=== PATIENT | female | born 1970 | race Caucasian/White ===

== ENCOUNTER → 2017-12-11 07:53 | Outpatient (CLI) | payer OTHER, SELFPAY ==
--- NOTE | 2017-12-11 | DI.MG.S_ITS ---
BILATERAL DIGITAL SCREENING MAMMOGRAM 3D/2D WITH CAD: 12/11/2017 CLINICAL: Routine screening. Family history of breast cancer. Comparison is made to exams dated: 11/16/2016 mammogram and 03/07/2012 mammogram - [facility]. There are scattered fibroglandular elements in both breasts. Current study was also evaluated with a Computer Aided Detection (CAD) system. No significant masses, calcifications, or other findings are seen in either breast. There has been no significant interval change. IMPRESSION: NEGATIVE There is no mammographic evidence of malignancy. A 1 year screening mammogram is recommended. This exam was interpreted at Station ID: [id number]. NOTE: For mammograms, a report in lay terms will be sent to the patient. Approximately 15% of breast malignancies will not be visualized mammographically. In the management of a palpable breast mass, a negative mammogram must not discourage biopsy of a clinically suspicious lesion. Electronically Signed By: Uriah mcfarlane/mathieu:12/11/2017 11:34:13 letter sent: Normal Exam ACR BI-RADS Category 1: Negative 3341F
== END ==
PROVIDERS: Family Provider Family Medicine; PCP Family Medicine; Visit Provider Family Medicine
DX: Z12.31 Encounter for screening mammogram for malignant neoplasm of breast (principal); Z80.3 Family history of malignant neoplasm of breast
CPT/HCPCS: 77063; 77067

== ENCOUNTER → 2018-01-21 16:00 | Outpatient (CLI) | payer OTHER, SELFPAY ==
[2018-01-21 16:38] LABS: Add Manual Diff / Slide Review NO; Basophils Percent Auto 0.6 % (0-2); Eosinophils Percent Auto 2.3 % (2-4); Hematocrit 41.3 % (36-46); Hemoglobin 13.8 g/dL (12.0-16.0); Lymphocytes Percent Auto 23.9 % (25-40); Mean Corpuscular HGB Conc 33.3 % (30-36); Mean Corpuscular Hemoglobin 30.6 PG (26-34); Mean Corpuscular Volume 91.9 fL (80-100); Monocytes Percent Auto 9.4 % (3-14); Neutrophils Absolute Auto 4800 /uL (3000-5900); Neutrophils Percent Auto 63.8 % (50-75); Platelet Count 295 X10^3/uL (150-400); Red Cell Distribution Width 14.3 % (11.6-14.8); White Blood Cell Count 7.5 X10^3/uL (4.5-11.0)
[2018-01-21 17:15] LABS: Alanine Aminotransferase 24 IU/L (9-52); Albumin 3.8 g/dL (3.5-5.0); Albumin Globulin Ratio 1.6 (1.0-2.8); Alkaline Phosphatase 57 U/L (38-126); Aspartate Aminotransferase 24 IU/L (14-36); BUN Creatinine Ratio 15.7 (6-22); Bilirubin Total 0.9 mg/dL (0.2-1.3); Blood Urea Nitrogen 11 mg/dL (7-17); Calcium 8.9 mg/dL (8.4-10.2); Carbon Dioxide 25 mmol/L (22-32); Chloride 101 mmol/L (98-107); Cholesterol 159 mg/dL (140-199); Estimated Glomerular Filt Rate > 60.0 mL/min (>60); Globulin 2.4 g/dL (1.7-4.1); Glucose 79 mg/dL (70-100); HDL Cholesterol 60 mg/dL (40-60); HEMOLYSIS < 15 (0-50); LDL Cholesterol Calculated 91 mg/dL (<100); Potassium 4.2 mmol/L (3.4-5.1); Sodium 136 mmol/L (137-145); Total Protein 6.2 g/dL (6.3-8.2); Triglycerides 38 mg/dL (35-150)
[2018-01-21 17:46] LABS: Thyroid Stimulating Hormone 2.46 uIU/mL (0.47-4.68)
== END ==
PROVIDERS: Family Provider Family Medicine; PCP Family Medicine; Visit Provider Family Medicine
DX: Z13.220 Encounter for screening for lipoid disorders (principal); R63.4 Abnormal weight loss; F41.8 Other specified anxiety disorders; Q21.1 Atrial septal defect; D58.9 Hereditary hemolytic anemia, unspecified
CPT/HCPCS: 36415; 80053; 80061; 84443; 85025

== ENCOUNTER → 2018-06-12 09:46 | Outpatient (REF) | payer SELFPAY ==
[2018-06-12 11:06] LABS: Influenza A and B by PCR Rapid Negative (Negative)
== END ==
LOC: LAB 09:46
PROVIDERS: Family Provider Family Medicine; PCP Family Medicine; Visit Provider Nurse Practitioner Family
DX: R50.9 Fever, unspecified (principal); R52 Pain, unspecified
CPT/HCPCS: 87400

== ENCOUNTER → 2018-09-13 08:09 | Outpatient (CLI) | payer OTHER, SELFPAY ==
[2018-09-13 09:24] LABS: Add Manual Diff / Slide Review NO; Basophils Absolute Auto 0 /uL (0-100); Basophils Percent Auto 0.5 % (0-2); Eosinophils Absolute Auto 100 /uL (0-450); Hematocrit 45.7 % (36-46); Hemoglobin 15.5 g/dL (12.0-16.0); Lymphocytes Absolute Auto 1100 /uL (1100-4500); Lymphocytes Percent Auto 20.2 % (25-40); Mean Corpuscular HGB Conc 33.9 % (30-36); Mean Corpuscular Hemoglobin 30.4 PG (26-34); Mean Corpuscular Volume 89.9 fL (80-100); Monocytes Absolute Auto 500 /uL (0-900); Monocytes Percent Auto 9.5 % (3-14); Neutrophils Absolute Auto 3600 /uL (1500-7000); Neutrophils Percent Auto 67.8 % (50-75); Platelet Count 307 X10^3/uL (150-400); Red Blood Cell Count 5.09 X10^6/uL (4.0-5.2); Red Cell Distribution Width 14.1 % (11.6-14.8); White Blood Cell Count 5.3 X10^3/uL (4.5-11.0)
[2018-09-13 09:55] LABS: Alanine Aminotransferase 22 IU/L (9-52); Albumin 3.8 g/dL (3.5-5.0); Albumin Globulin Ratio 1.6 (1.0-2.8); Alkaline Phosphatase 66 U/L (38-126); Aspartate Aminotransferase 19 IU/L (14-36); Bilirubin Total 0.4 mg/dL (0.2-1.3); Blood Urea Nitrogen 16 mg/dL (7-17); Calcium 8.9 mg/dL (8.4-10.2); Carbon Dioxide 24 mmol/L (22-32); Chloride 106 mmol/L (98-107); Cholesterol 165 mg/dL (140-199); Estimated Glomerular Filt Rate > 60.0 mL/min (>60); Globulin 2.4 g/dL (1.7-4.1); Glucose 98 mg/dL (70-100); HDL Cholesterol 48 mg/dL (40-60); HEMOLYSIS < 15 (0-50); LDL Cholesterol Calculated 108 mg/dL (<100); Potassium 4.6 mmol/L (3.4-5.1); Sodium 138 mmol/L (137-145); Total Protein 6.2 g/dL (6.3-8.2); Triglycerides 46 mg/dL (35-150)
[2018-09-13 09:56] LABS: C-Reactive Protein Quant < 0.5 mg/dL (<1.0)
[2018-09-13 10:19] LABS: Thyroid Stimulating Hormone 1.49 uIU/mL (0.47-4.68)
[2018-09-13 10:20] LABS: Luteinizing Hormone 4.97 mIU/mL
== END ==
PROVIDERS: PCP Family Medicine; Visit Provider Family Medicine
DX: R61 Generalized hyperhidrosis (principal); Z00.00 Encounter for general adult medical examination without abnormal findings
CPT/HCPCS: 36415; 80053; 80061; 83001; 83002; 84443; 85025; 86140

== ENCOUNTER 2019-05-20 07:12 | Emergency (ER) | payer OTHER, SELFPAY ==
[2019-05-20 07:20] VITALS: BP 117/81; PULSE 109; RESP 16; TEMP 36.8; O2SAT 94; BMI 26.6
--- NOTE | 2019-05-20 07:21 | ED.SEIZURE ---
HPI - Seizure General Chief Complaint: Seizure Stated Complaint: SZ Time Seen by Provider: 05/20/19 07:14 Source: patient, family and EMS Mode of arrival: EMS Limitations: no limitations History of Present Illness HPI Narrative: This is a 48-year-old female who comes emergency department with seizure activity. Patient has history of seizure disorder and states typically there partial complex seizures. She states that usually she feel that hot across her chest, she does not have any staring episodes, movement of extremities or typically have movement changes. She can continue with conversations and does not have any change in mental status according to her and her . She states they typically awaken her from sleep, she will have several in a row and then go several months without issues. Her states he hasn't witnessed many of them because they typically seem to happen at night time but he states today was very different. This morning he woke up to her shaking in the bed with whole body tonic-clonic type shaking. He states it probably lasted 30-45 seconds. She did appear postictal and she has been returning to baseline but he states it's been over the course of about 45 minutes. Patient does normally take lamotrigine. She has not had any changes in her dosage. She states Dr. Lozoya her primary care prescribed this medication. She did see Neurology a Dr. Jimenez in [place] but states that was several years ago at [facility]. She also takes citalopram and Xanax for anxiety and depression. She states that Xanax is occasional. She has had a cholecystectomy an ASD repair 20 years ago. Denies any allergies to medications. States she normally has 2 or 3 alcoholic drinks about 2 or 3 times weekly. Last night she did have about 8 drinks that were vodka between noon and midnight which is more than her typical. She denies any illicit, no marijuana or street drugs. She denies recent trauma. No fevers. No other alterations in mental status. Related Data Allergies Allergy/AdvReac Type Severity Reaction Status Date / Time INGREDIENT: NDA - NO KNOWN Allergy Unknown Uncoded 08/28/17 12:54 DRUG ALLERGIES Cefotaxime AdvReac Unknown Uncoded 08/28/17 12:54 Review of Systems Review of Systems ROS Unobtainable: All systems reviewed & are unremarkable except as noted in HPI and below Patient History Medical History (Updated 05/20/19 @ 07:44 by Blaire Hill DO) Anxiety (Acute) Depression (Acute) Seizure disorder (Acute) Surgical History (Updated 05/20/19 @ 07:40 by Blaire Hill DO) H/O congenital atrial septal defect (ASD) repair (Acute) Hx of cholecystectomy (Acute) Social History (Updated 05/20/19 @ 07:41 by Blaire Hill DO) marital status: Smoking Status: Never smoker Smoking Status: Never smoker alcohol intake frequency: a few times a week (2-3 drinks at a time) Substance Use Type: does not use Exam Narrative Exam Narrative: GEN: well nourished, well appearing female, alert and oriented x 3, patient appears to be in mild distress. HEENT: Atraumatic, pupils are equal round reactive to light, extraocular movements are intact, no nystagmus, nares are clear, TMs are clear with no fluid, there is no conjunctival pallor. Throat is clear without any exudates, erythema, tonsillar enlargement or uvular deviation, facial droop. Normal speech. Patient has a small superficial abrasion/lack on her right lateral tongue it is not deep. HEART: Regular rate and rhythm without murmur, clicks, rubs. LUNGS:Lungs clear to auscultation, no wheezes, rales, crackles, chest moves symmetrically ABD:bowel sounds normal, soft, non-tender, no guarding, rebound, rigidity, no masses noted, no hepatosplenomegaly :No CVA tenderness MSCL: Non-tender, no muscle atrophy, muscles strength 5/5 upper and lower extremities, full range of motion, normal gait NEURO:CN 2-12 intact, sensation normal, reflexes patient slightly hyperreflexic on bilateral lower extremities. finger nose finger test normal, heel rubio test normal, gait not tested. GCS 15. SKIN: No rash, no erythema. No skin changes. Initial Vital Signs Initial Vital Signs: Vital Signs Temperature 98.3 F 05/20/19 07:20 Pulse Rate 109 H 05/20/19 07:20 Respiratory Rate 16 05/20/19 07:20 Blood Pressure 117/81 05/20/19 07:20 Pulse Oximetry 94 05/20/19 07:20 Scores GCS Nivia coma scale eye opening: Spontaneous [place] coma scale verbal response: Orientated Nivia coma scale motor response: Obey commands Nivia coma scale total score: 15 Course Orders Ordered: ED Orders 05/20/19 07:15 BMP [Basic Metabolic Panel] Stat Complete Blood Count AUTO DIFF Stat Ethanol (ETOH) Stat Lamotrigine Lamictal Stat Magnesium Stat 05/20/19 07:23 EKG-12 Lead Routine 05/20/19 07:36 CT head/brain wo con Stat 05/20/19 09:51 Urine Drug Screen, Rapid Stat Discontinued Medications Sodium Chloride (Normal Saline 0.9%) 1,000 mls @ 1,000 mls/hr IV BOLUS ONE Stop: 05/20/19 08:34 Last Infusion: 05/20/19 10:09 Dose: 0 mls/hr Documented by: Admin: 05/20/19 07:41 Dose: 1,000 mls/hr Documented by: VASQUEZ Lamotrigine (Lamictal) 150 mg PO NOW ONE Stop: 05/20/19 10:35 Last Admin: 05/20/19 10:43 Dose: 150 mg Documented by: VASQUEZ Lorazepam (Ativan) 1 mg IV NOW ONE Stop: 05/20/19 07:36 Last Admin: 05/20/19 07:40 Dose: 1 mg Documented by: VASQUEZ Lorazepam (Ativan) 0.5 mg IV NOW ONE Stop: 05/20/19 08:25 Last Admin: 05/20/19 08:26 Dose: 0.5 mg Documented by: VASQUEZ Vital Signs Vital signs: Vital Signs - 8 hr 05/20/19 07:20 05/20/19 08:50 05/20/19 09:30 Temperature 98.3 F Pulse Rate 109 H 93 H 91 H Respiratory Rate 16 18 17 Blood Pressure 117/81 Blood Pressure [Right Arm] 114/70 115/78 Pulse Oximetry 94 96 97 05/20/19 10:57 Temperature Pulse Rate 100 H Respiratory Rate 17 Blood Pressure 118/77 Blood Pressure [Right Arm] Pulse Oximetry 97 MDM - Seizure Lab Data Attestation: I reviewed the patient's lab results. Result diagrams: 05/20/19 07:15 05/20/19 07:15 Labs: Lab Results 05/20/19 05/20/19 05/20/19 Range/Units 07:15 07:15 07:15 WBC 9.7 (4.5-11.0) X10^3/uL RBC 5.08 (4.0-5.2) X10^6/uL Hgb 15.6 (12.0-16.0) g/dL Hct 46.9 H (36-46) % MCV 92.3 (80-100) fL MCH 30.7 (26-34) PG MCHC 33.2 (30-36) % RDW 14.3 (11.6-14.8) % Plt Count 363 (150-400) X10^3/uL Neut % (Auto) 71.2 (50-75) % Lymph % (Auto) 21.1 L (25-40) % Williams % (Auto) 6.1 (3-14) % Eos % (Auto) 0.9 L (2-4) % Baso % (Auto) 0.7 (0-2) % Neut # (Auto) 6900 (3253-9360) /uL Lymph # (Auto) 2000 (6631-4375) /uL Williams # (Auto) 600 (0-900) /uL Eos # (Auto) 100 (0-450) /uL Baso # (Auto) 100 (0-100) /uL Sodium 138 (137-145) mmol/L Potassium 4.5 (3.4-5.1) mmol/L Chloride 105 (98-107) mmol/L Carbon Dioxide 17 L (22-32) mmol/L BUN 19 H (7-17) mg/dL Creatinine 0.80 (0.52-1.04) mg/dL Estimated GFR > 60.0 (>60) mL/min BUN/Creatinine Ratio 23.8 H (6-22) Glucose 139 H (70-100) mg/dL Calcium 8.4 (8.4-10.2) mg/dL Magnesium 2.1 (1.6-2.3) mg/dL U Opiates 300ng/mL cut (Negative) Ur Oxycodone Screen (Negative) Urine Methadone Screen (Negative) Ur Barbiturates Screen (Negative) U Tricyclic Antidepress (Negative) Ur Phencyclidine Scrn (Negative) Ur Amphetamines Screen (Negative) U Methamphetamines Scrn (Negative) Ur MDMA Scrn (Ecstasy) (Negative) U Benzodiazepines Scrn (Negative) Urine Cocaine Screen (Negative) U Marijuana (THC) Screen (Negative) Ethyl Alcohol ( - 10) mg/dL 05/20/19 05/20/19 Range/Units 07:15 09:51 WBC (4.5-11.0) X10^3/uL RBC (4.0-5.2) X10^6/uL Hgb (12.0-16.0) g/dL Hct (36-46) % MCV (80-100) fL MCH (26-34) PG MCHC (30-36) % RDW (11.6-14.8) % Plt Count (150-400) X10^3/uL Neut % (Auto) (50-75) % Lymph % (Auto) (25-40) % Williams % (Auto) (3-14) % Eos % (Auto) (2-4) % Baso % (Auto) (0-2) % Neut # (Auto) (1284-1761) /uL Lymph # (Auto) (7593-3190) /uL Williams # (Auto) (0-900) /uL Eos # (Auto) (0-450) /uL Baso # (Auto) (0-100) /uL Sodium (137-145) mmol/L Potassium (3.4-5.1) mmol/L Chloride (98-107) mmol/L Carbon Dioxide (22-32) mmol/L BUN (7-17) mg/dL Creatinine (0.52-1.04) mg/dL Estimated GFR (>60) mL/min BUN/Creatinine Ratio (6-22) Glucose (70-100) mg/dL Calcium (8.4-10.2) mg/dL Magnesium (1.6-2.3) mg/dL U Opiates 300ng/mL cut Negative (Negative) Ur Oxycodone Screen Negative (Negative) Urine Methadone Screen Negative (Negative) Ur Barbiturates Screen Negative (Negative) U Tricyclic Antidepress Negative (Negative) Ur Phencyclidine Scrn Negative (Negative) Ur Amphetamines Screen Negative (Negative) U Methamphetamines Scrn Negative (Negative) Ur MDMA Scrn (Ecstasy) Negative (Negative) U Benzodiazepines Scrn Negative (Negative) Urine Cocaine Screen Negative (Negative) U Marijuana (THC) Screen Negative (Negative) Ethyl Alcohol < 10 ( - 10) mg/dL Point of Care Testing Test Results Negative Glucose POC 122 Urine Dip Bedside Urine Glucose Negative Bedside Urine Bilirubin - Negative Bedside Urine Ketone +/- 5 Urine Specific [place] 1.015 Bedside Urine Occult Blood - Negative Bedside Urine pH 6.0 Bedside Urine Protein +/- 15 Bedside Urine Urobilinogen +/- 1mg Bedside Urine Nitrite - Negative Bedside Urine Leukocytes - Negative Esterase Imaging Data CT scan - head: Radiologist's Impression: [address] [address] [address] Scan Report Signed Patient: Dione Grimm LMR#: [id number] : 1970Acct:[id number] Age/Sex: 48 / FDate of Service: 05/20/19 Loc: ED Accession Number: [id number] Procedure: CT head/brain wo con Ordering Provider: Blaire Hill D.O. PROCEDURE: CT HEAD/BRAIN WO CON INDICATIONS: seizure, change from typical TECHNIQUE: Noncontrast 4.5 mm thick angled axial sections acquired from the foramen magnum to the vertex, with coronal and sagittal reformats. For radiation dose reduction, the following was used: automated exposure control, adjustment of mA and/or kV according to patient size. COMPARISON: None. FINDINGS: Image quality: Excellent. CSF spaces: Basal cisterns are patent. No extra-axial fluid collections. Ventricles are normal in size and shape. Brain: No midline shift. No intracranial masses or hemorrhage. Daily-white matter interface is normal. Mid/posterior frontal falx calcification. Skull and face: Calvarium and visualized facial bones are intact, without suspicious lesions. Sinuses: Visualized sinuses and mastoids are clear. IMPRESSION: No acute intracranial abnormality demonstrated. Dictated by: Ricardo Roy M.D. on 05/20/2019 at 8:17 Approved by: Ricardo Roy M.D. on 05/20/2019 at 8:19 ECG Data Attestation: I personally reviewed and interpreted this ECG as follows: Prior ECG tracings: available for review Interpretation: Sinus tachycardia with a rate of 100 P are 192 QRS of 105 and QTC of 422. No ST elevation is appreciated. Patient has incomplete right bundle branch. Patient has prior from 11/25/2013 which appears similar in ST segments. MDM Narrative Medical decision making narrative: Patient comes in with seizure activity witnessed by her . Patient was postictal on a has improved to baseline per and does appear to be so on exam although maybe still slightly slow to answer. Patient did have a change in her typical type seizure, head CT was ordered secondary to this although I suspect that the main reason she had increased seizure activity and the change day which she had significantly more alcohol than she typically would over about 12 hours yesterday and as this is known to lower seizure threshold I suspect this is the cause of her symptoms. Imaging, labs shows CO of 17, BUN is 19, etoh is negative. Lamotrigine is pending and a send out lab. Patient states she had what they feel is another episode or seizure x 2 in the department. Patient is alert, conversant, her chest feels hot and gets red according to her and family. She has no movement changes or staring episodes, no alteration in mental status. No other changes other than feeling hot in her chest that is a part of the episode when both episodes are witnessed by myself. Attempted to contact Dr. Jimenez her prior neurologist. Spoke with Dr. Robertson who is senior applications developer for the PCP group and he cannot pull up any neurology records but does have records back to 2013 from . Attempted [place] [facility] with no response. I did speak with Dr. Garland for the patient. Patient given her home dose of lamotrigine today. Patient is ambulating and baseline in the department. Plan for close follow up. Lamotrigine level is pending. Patient to continue home medications as to avoid alcohol. She is not cleared to drive by the ER at this time and was relayed to the patient. Dr. Vann did call back later. Recommends f/u, no driving, seizure precautions. Could increase lamictal level to 175mg BID, level is pending for there use. They will follow with patient. I did call patient. Updated her on recommendations. She states she has plenty of Lamictal and does need a prescription. Again discussed neurology's recommendations of no driving. 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 Also discussed neurology options locally including [place] and [place]. Discharge Plan Departure Patient Disposition: Home Clinical Impression: Seizure Discharge Date/Time: 05/20/19 10:57 Instructions: DI for Seizure Disorder -- Adult Activity Restrictions/Additional Instructions: Follow up with your physician in the next 24-48 hours for recheck. I also recommend re-establishing with your neurologist Dr. Jimenez. Avoid alcohol. Alcohol increases your risk of seizures and is well known for lowering the seizure pressure. I do not recommend drinking alcohol with a history of seizure disorder. No driving until you're cleared by your physician. Continue with seizure precautions, no swimming, bathing alone or participating in activities or if you had a seizure it could cause serious harm or . Your lamotrigine level is pending, follow-up with her physician to check this as it is a send out lab. Return to the ER for altered mental status, fevers greater 100.4 F, recurrent seizures particularly if you do not return to baseline in between for if you're having multiple seizures back to back, persistent vomiting, new weakness, numbness or other new or concerning symptoms. Referrals: Rainer Lozoya MD [Primary Care Provider] - Stand Alone Forms: Work Release Note
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
--- NOTE | 2019-05-20 07:36 | DI.CT.S_ITS ---
PROCEDURE: CT HEAD/BRAIN WO CON INDICATIONS: seizure, change from typical TECHNIQUE: Noncontrast 4.5 mm thick angled axial sections acquired from the foramen magnum to the vertex, with coronal and sagittal reformats. For radiation dose reduction, the following was used: automated exposure control, adjustment of mA and/or kV according to patient size. COMPARISON: None. FINDINGS: Image quality: Excellent. CSF spaces: Basal cisterns are patent. No extra-axial fluid collections. Ventricles are normal in size and shape. Brain: No midline shift. No intracranial masses or hemorrhage. Daily-white matter interface is normal. Mid/posterior frontal falx calcification. Skull and face: Calvarium and visualized facial bones are intact, without suspicious lesions. Sinuses: Visualized sinuses and mastoids are clear. IMPRESSION: No acute intracranial abnormality demonstrated. Dictated by: Ricardo Roy M.D. on 05/20/2019 at 8:17 Approved by: Ricardo Roy M.D. on 05/20/2019 at 8:19
[2019-05-20 07:38] LABS: Add Manual Diff / Slide Review NO; Basophils Absolute Auto 100 /uL (0-100); Basophils Percent Auto 0.7 % (0-2); Eosinophils Absolute Auto 100 /uL (0-450); Eosinophils Percent Auto 0.9 % (2-4); Hematocrit 46.9 % (36-46); Hemoglobin 15.6 g/dL (12.0-16.0); Lymphocytes Absolute Auto 2000 /uL (1100-4500); Lymphocytes Percent Auto 21.1 % (25-40); Mean Corpuscular HGB Conc 33.2 % (30-36); Mean Corpuscular Hemoglobin 30.7 PG (26-34); Mean Corpuscular Volume 92.3 fL (80-100); Monocytes Absolute Auto 600 /uL (0-900); Monocytes Percent Auto 6.1 % (3-14); Neutrophils Absolute Auto 6900 /uL (1500-7000); Neutrophils Percent Auto 71.2 % (50-75); Platelet Count 363 X10^3/uL (150-400); Red Blood Cell Count 5.08 X10^6/uL (4.0-5.2); Red Cell Distribution Width 14.3 % (11.6-14.8); White Blood Cell Count 9.7 X10^3/uL (4.5-11.0)
[2019-05-20] MEDS: LORazepam 2 MG/ML INJ 1 MG IV (07:40)
[2019-05-20 07:41] LABS: BUN Creatinine Ratio 23.8 (6-22); Blood Urea Nitrogen 19 mg/dL (7-17); Calcium 8.4 mg/dL (8.4-10.2); Carbon Dioxide 17 mmol/L (22-32); Chloride 105 mmol/L (98-107); Estimated Glomerular Filt Rate > 60.0 mL/min (>60); Glucose 139 mg/dL (70-100); HEMOLYSIS 17 (0-50); Potassium 4.5 mmol/L (3.4-5.1); Sodium 138 mmol/L (137-145)
[2019-05-20] MEDS: SODIUM CHLORIDE 0.9% 1,000 ML 1000 ML IV (07:41)
[2019-05-20 08:00] LABS: Ethanol (ETOH) < 10 mg/dL; Magnesium 2.1 mg/dL (1.6-2.3)
[2019-05-20] MEDS: LORazepam 2 MG/ML INJ 0.5 MG IV (08:26)
--- NOTE | 2019-05-20 08:27 | PC.NURSE ---
Pt's reports that pt thinks she is about to have another seizure. reports usually her chest gets hot and red prior to any activity. Dr Hill made aware. verbal order for 0.5mg ativan. given. IVF infusing. pt AAOx3. Resting supine in bed with seizure pads in place and suction available. will monitor
[2019-05-20 08:50] VITALS: BP 114/70; PULSE 93; RESP 18; O2SAT 96
--- NOTE | 2019-05-20 08:53 | PC.NURSE ---
Checked in on pt. family members in room. pt drowsy. IVF continues to infuse. pt made aware of need of urine sample. i feel fine awake and oriented. will continue to monitor
[2019-05-20 09:30] VITALS: BP 115/78; PULSE 91; RESP 17; O2SAT 97
[2019-05-20 10:09] LABS: UR Morphine/Opiate cutoff 300 Negative (Negative); Ur Creatinine Normal (Normal); Ur Specific Gravity Normal (Normal); Urine Amphetamines Negative (Negative); Urine Barbiturates Negative (Negative); Urine Benzodiazepines Negative (Negative); Urine Cocaine Negative (Negative); Urine MDMA Negative (Negative); Urine Methadone Negative (Negative); Urine Methamphetamines Negative (Negative); Urine Oxycodone Negative (Negative); Urine Phencyclidine Negative (Negative); Urine Tetrahydrocannabinol Negative (Negative); Urine Tricyclic Antidepressant Negative (Negative); Urine pH Normal (Normal)
[2019-05-20] MEDS: lamoTRIgine 100 MG TABLET 150 MG PO (10:43)
[2019-05-20 10:57] VITALS: BP 118/77; PULSE 100; RESP 17; O2SAT 97
[2019-05-22 20:40] LABS: Lamotrigine Lamictal 6.5 mcg/mL (4.0-18.0)
== END 2019-05-20 10:57 | disposition home or self-care (01) ==
PROVIDERS: Emergency Provider Emergency Medicine; PCP Family Medicine
DX: R56.9 Unspecified convulsions (principal); R00.0 Tachycardia, unspecified
CPT/HCPCS: 36415; 70450; 80048; 80175; 80305; 80320; 81003; 81025; 83735; 85025; 93005; 96361; 96374; 96376; 99284; 99285; J2060

== ENCOUNTER → 2020-03-19 08:32 | Outpatient (CLI) | payer BC, SELFPAY ==
--- NOTE | 2020-03-19 | DI.MG.S_ITS ---
BILATERAL DIGITAL SCREENING MAMMOGRAM 3D/2D WITH CAD: 03/19/2020 CLINICAL: Routine screening. Family history of breast cancer. Comparison is made to exams dated: 12/11/2017 mammogram, 11/16/2016 mammogram, and 03/07/2012 mammogram - [facility]. There are scattered fibroglandular elements in both breasts. Current study was also evaluated with a Computer Aided Detection (CAD) system. No significant masses, calcifications, or other findings are seen in either breast. There has been no significant interval change. IMPRESSION: NEGATIVE There is no mammographic evidence of malignancy. A 1 year screening mammogram is recommended. This exam was interpreted at Station ID: [id number]. NOTE: For mammograms, a report in lay terms will be sent to the patient. Approximately 15% of breast malignancies will not be visualized mammographically. In the management of a palpable breast mass, a negative mammogram must not discourage biopsy of a clinically suspicious lesion. Electronically Signed By: Vin cedeño/mathieu:03/21/2020 09:05:10 letter sent: Normal Exam ACR BI-RADS Category 1: Negative 3341F
== END ==
PROVIDERS: PCP Family Medicine; Referring Provider Family Medicine; Visit Provider Family Medicine
DX: Z12.31 Encounter for screening mammogram for malignant neoplasm of breast (principal); Z80.3 Family history of malignant neoplasm of breast
CPT/HCPCS: 77063; 77067

== ENCOUNTER 2020-07-30 11:58 | Emergency (ER) | payer OTHER, SELFPAY ==
[2020-07-30 11:58] VITALS: PULSE 97; RESP 24
[2020-07-30 12:04] VITALS: BP 132/71; PULSE 92; RESP 16; O2SAT 96
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
[2020-07-30] MEDS: SODIUM CHLORIDE 0.9% 1,000 ML 1000 ML IV (12:26)
[2020-07-30] MEDS: ONDANSETRON 4 MG/2 ML INJ IV (12:26)
[2020-07-30 12:33] LABS: BUN Creatinine Ratio 22.2 (6-22); Blood Urea Nitrogen 20 mg/dL (7-17); Calcium 9.4 mg/dL (8.4-10.2); Carbon Dioxide 12 mmol/L (22-32); Chloride 104 mmol/L (98-107); Estimated Glomerular Filt Rate > 60.0 mL/min (>60); Ethanol (ETOH) < 10 mg/dL; Glucose 100 mg/dL (70-100); Magnesium 2.1 mg/dL (1.6-2.3); Potassium 4.4 mmol/L (3.4-5.1); Sodium 138 mmol/L (137-145)
[2020-07-30 12:38] LABS: HEMOLYSIS 122 (0-50)
[2020-07-30 12:48] LABS: Prolactin 104.8 ng/mL (3.0-18.6)
[2020-07-30 12:54] LABS: Add Manual Diff / Slide Review NO; Basophils Absolute Auto 100 /uL (0-100); Basophils Percent Auto 0.5 % (0-2); Eosinophils Absolute Auto 200 /uL (0-450); Hematocrit 50.1 % (36-46); Hemoglobin 15.9 g/dL (12.0-16.0); Lymphocytes Absolute Auto 3400 /uL (1100-4500); Lymphocytes Percent Auto 28.5 % (25-40); Mean Corpuscular HGB Conc 31.8 % (30-36); Mean Corpuscular Hemoglobin 29.7 PG (26-34); Mean Corpuscular Volume 93.4 fL (80-100); Monocytes Absolute Auto 1100 /uL (0-900); Monocytes Percent Auto 8.9 % (3-14); Neutrophils Absolute Auto 7200 /uL (1500-7000); Neutrophils Percent Auto 60.1 % (50-75); Platelet Count 353 X10^3/uL (150-400); Red Blood Cell Count 5.36 X10^6/uL (4.0-5.2); Red Cell Distribution Width 14.1 % (11.6-14.8)
[2020-07-30] MEDS: ACETAMINOPHEN 325 MG TABLET 975 MG PO (13:02)
[2020-07-30 13:58] LABS: UR Morphine/Opiate cutoff 300 Negative (Negative); Ur Creatinine Normal (Normal); Ur Specific Gravity Normal (Normal); Urine Amphetamines Negative (Negative); Urine Barbiturates Negative (Negative); Urine Benzodiazepines Negative (Negative); Urine Cocaine Negative (Negative); Urine MDMA Negative (Negative); Urine Methadone Negative (Negative); Urine Methamphetamines Negative (Negative); Urine Oxycodone Negative (Negative); Urine Phencyclidine Negative (Negative); Urine Tetrahydrocannabinol Negative (Negative); Urine Tricyclic Antidepressant Negative (Negative); Urine pH Normal (Normal)
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
[2020-07-30] MEDS: lamoTRIgine 100 MG TABLET 200 MG PO (14:45)
[2020-07-30] MEDS: TRANEXAMIC ACID 1,000 MG VIAL 1000 MG MM (14:46)
[2020-07-30 16:03] VITALS: BP 125/75; PULSE 65; RESP 18; O2SAT 99
== END 2020-07-30 16:07 | disposition home or self-care (01) ==
PROVIDERS: Emergency Provider Emergency Medicine; PCP Family Medicine
DX: R56.9 Unspecified convulsions (principal)
CPT/HCPCS: 70450; 80048; 80305; 80320; 81003; 81025; 83735; 84146; 85025; 93005; 96361; 96374; 99283; 99284; J2405

== ENCOUNTER → 2020-08-02 16:57 | Outpatient (CLI) | payer OTHER, SELFPAY ==
[2020-08-05 12:44] LABS: Lamotrigine Lamictal 11.2 ug/mL (2.0-20.0)
== END ==
PROVIDERS: PCP Family Medicine; Referring Provider Family Medicine; Visit Provider Family Medicine
DX: G40.209 Localization-related (focal) (partial) symptomatic epilepsy and epileptic syndromes with complex partial seizures, not intractable, without status epilepticus (principal)
CPT/HCPCS: 36415; 80175

== ENCOUNTER → 2020-08-05 09:29 | Outpatient (CLI) | payer OTHER, SELFPAY ==
[2020-08-05 12:09] LABS: COVID19 -Nasal RAPID Negative (Negative)
== END ==
PROVIDERS: PCP Family Medicine; Visit Provider Surgery
DX: Z20.822 Contact with and (suspected) exposure to COVID-19 (principal)
CPT/HCPCS: 87635; C9803

== ENCOUNTER 2020-08-08 08:04 | Day surgery (SDC) | payer OTHER, SELFPAY ==
--- NOTE | 2020-08-08 | PATH_ITS ---
[facility] Accession Number: [id number] . 01 Material submitted: . esophagus, E-G Junction - GE JUNCTION . 02 Diagnosis: GE Junction: Portion of proximal gastric mucosa with chronic inflammation. Negative for intestinal metaplasia. Negative for H. pylori organisms by immunohistochemistry studies. Portion of squamous mucosa with no significant histomorphologic abnormality; negative for intestinal metaplasia by Acian blue stain. Negative for dysplasia or malignancy. . MRV 08/12/2020 1403 Local . 02 Electronically signed: . Sharon Robbins MD, Pathologist NPI- [id number] . 01 Gross description: . GE JUNCTION: Received in formalin are 2 fragment(s) of truong, soft tissue measuring 0.3 x 0.3 x 0.1 cm to 0.3 x 0.1 x 0.1 cm submitted entirely in 1 cassette(s) /QBJ 08/10/2020 0744 Local . 02 Microscopic: . An immunohistochemical stain was performed to evaluate for Helicobacter organisms and is negative. The control stain showed appropriate reactivity. . * This test was developed and its performance characteristics determined by [facility]. It has not been cleared or approved by the U.S. Food and Drug Administration. The FDA has determined that such clearance or approval is not necessary. This test is used for clinical purposes. It should not be regarded as investigational or for research. . 02 Pathologist provided ICD-10: R13.10 . 02 CPT . 124365, L51398, 622474 Performed at: 01 [facility] [address] [facility], [place], [place] [id number] MD Vin Fernandez MD Phone: [phone] Performed at: 02 [facility] [place] [id number] [place] [id number] MD Faith oMlina MD Phone: [phone]
[2020-08-08 08:41] VITALS: BP 118/83; PULSE 70; RESP 16; TEMP 36.9; O2SAT 95; BMI 30.9
[2020-08-08] MEDS: LACTATED RINGERS 1,000 ML 200 ML IV (08:49)
--- NOTE | 2020-08-08 09:18 | PM.PREOP ---
Pre-operative Note Interval Note History & Physical reviewed/Exam performed by Physician: Yes Changes to H&P: No
[2020-08-08] MEDS: LIDOCAINE 4% SOLN 50 ML 20 ML TOP (09:35)
[2020-08-08] MEDS: fentaNYL 250 MCG/5 ML INJ IV (09:40)
--- NOTE | 2020-08-08 09:40 | PM.OP.ENDO ---
Operative Date/Time/Diagnoses Date of procedure: 08/08/20 Time of procedure: 09:40 Pre-op diagnosis: esophageal dysphagia Post-op diagnosis: same Procedure & Clinicians Study performed: Esophagoduodenoscopy Same procedure as scheduled: Yes Indications: 50-year-old female developed esophageal dysphagia here for EGD Surgeon: Loi Willett Procedure Notes Procedure in detail: Patient placed in left lateral decubitus position. Time out was performed. Procedural sedation was administered with Versed and Fentanyl. A bite block was placed. the scope was inserted into the mouth and advanced through the esophagus and into the stomach. The pylorus was intubated and the duodenum was normal to the 2nd portion. The scope was retroflexed within the stomach and there was a small hiatal hernia. No ulcers, or gastritis. The scope was withdrawn into the esophagus the Z line was seen at 40 cm from the incisions. There was no obvious Graff's esophagitis esophageal masses or strictures. Biopsies of the GE junction were performed with the biopsy forceps. Stomach was desufflated and scope removed. Patient tolerated procedure well. Sedation minutes: 8 Specimen(s): other (GE junction) Complications: none Impression: Hiatal hernia Post-procedure Recommendations: Start medication(s) (Omeprazole) Follow up: as needed Disposition: same day surgery
[2020-08-08] MEDS: MIDAZOLAM 5 MG/5 ML VIAL IV (09:41)
[2020-08-08 09:42] VITALS: BP 109/79; PULSE 67; RESP 9; TEMP 36.7; O2SAT 90
[2020-08-08 09:47] VITALS: BP 110/73; PULSE 61; RESP 11; O2SAT 91
[2020-08-08 09:52] VITALS: BP 113/67; PULSE 63; RESP 9; O2SAT 92
[2020-08-08 09:58] VITALS: BP 114/82; PULSE 74; RESP 10; O2SAT 94
[2020-08-08 10:12] VITALS: BP 118/83; PULSE 70; RESP 16; TEMP 36.9; O2SAT 95
== END 2020-08-08 10:15 | disposition home or self-care (01) ==
PROVIDERS: PCP Family Medicine; Referring Provider Surgery; Visit Provider Surgery
PROC: 0DJ08ZZ Inspection of Upper Intestinal Tract, Via Natural or Artificial Opening Endoscopic (ICD-10-PCS; CPT 43235; principal; 2020-08-08 09:15)
DX: K21.00 Gastro-esophageal reflux disease with esophagitis, without bleeding (principal); F41.9 Anxiety disorder, unspecified; F32.9 Major depressive disorder, single episode, unspecified; G40.909 Epilepsy, unspecified, not intractable, without status epilepticus; K44.9 Diaphragmatic hernia without obstruction or gangrene
CPT/HCPCS: 43239; 99152; J2250; J3010

== ENCOUNTER → 2020-09-23 07:50 | Outpatient (CLI) | payer OTHER, SELFPAY ==
[2020-09-26 16:08] LABS: Lamotrigine Lamictal 10.9 ug/mL (2.0-20.0)
== END ==
PROVIDERS: PCP Family Medicine; Referring Provider Family Medicine; Visit Provider Family Medicine
DX: G40.209 Localization-related (focal) (partial) symptomatic epilepsy and epileptic syndromes with complex partial seizures, not intractable, without status epilepticus (principal)
CPT/HCPCS: 36415; 80175

== ENCOUNTER 2020-11-03 12:06 | Emergency (ER) | payer OTHER, SELFPAY ==
[2020-11-03 12:20] VITALS: BP 138/81; PULSE 68; RESP 15; TEMP 37.3; O2SAT 97; BMI 31.8
--- NOTE | 2020-11-03 12:36 | DI.CT.S_ITS ---
PROCEDURE: CT HEAD/BRAIN WO CON INDICATIONS: worst LÓPEZ of life TECHNIQUE: Noncontrast 4.5 mm thick angled axial sections acquired from the foramen magnum to the vertex, with coronal and sagittal reformats. For radiation dose reduction, the following was used: automated exposure control, adjustment of mA and/or kV according to patient size. COMPARISON: [facility], MR, BRAIN WITH AND WITHOUT CONTRAS, 05/29/2011, 10:00. [facility], CT, CT HEAD/BRAIN WO CON, 05/20/2019, 7:36. [facility], CT, CT HEAD/BRAIN WO CON, 07/30/2020, 12:26. FINDINGS: Image quality: Excellent. CSF spaces: Basal cisterns are patent. No extra-axial fluid collections. Ventricles are normal in size and shape. Brain: No midline shift. No intracranial masses or hemorrhage. Daily-white matter interface is normal. Focal thickening of the anterior dura can be seen, as on series 2, image 22, which is stable compared to 2020. Skull and face: Calvarium and visualized facial bones are intact, without suspicious lesions. Sinuses: Visualized sinuses and mastoids are clear. IMPRESSION: No acute intracranial hemorrhage is seen. No acute intracranial process is seen. Dictated by: Stanley Figueroa M.D. on 11/03/2020 at 11:59 Approved by: Stanley Figueroa M.D. on 11/03/2020 at 12:02
[2020-11-03] MEDS: ACETAMINOPHEN 325 MG TABLET 650 MG PO (12:39)
--- NOTE | 2020-11-03 14:09 | ED_ITS ---
HPI - Headache General Chief Complaint: Headache Stated Complaint: Headache Time Seen by Provider: 11/03/20 12:35 Mode of arrival: Wheelchair Limitations: no limitations History of Present Illness HPI Narrative: 50-year-old woman with a history of seizure disorder for which she is on lamotrigine, reflux and depression presents with severe headache. She states her symptoms started 48 hours ago after an emotional compensation that led to a very hard crying episode. As she was crying she developed severe frontal headache that continued for a number of hours. She described it is throbbing and at times extending down both temples toward her jaw. She does not have a significant history of headache. She does not describe fevers she has no nuchal rigidity complaints and no low back complaints. The headache seems to be worse if she bends over forward but she isn't having specific sinus pressure complaints. No sore throat. No cough. No chest pain, orthopnea, palpitations, dyspnea, abdominal pain, vomiting, diarrhea, dysuria. The headache is bilateral and not associated with any skin changes. She had a IM dose of Toradol in the clinic yesterday that was helpful for a bit. She took a an oral dose of Toradol this morning that was not particularly helpful and presents today with continued concerns. She describes no vision changes and no other neurologic complaints. Related Data Home Medications Medication Instructions Recorded Confirmed alprazolam 1 mg tablet 1 mg PO DAILY PRN 03/17/20 08/08/20 lamotrigine 200 mg tablet 200 mg PO BID 03/17/20 08/08/20 citalopram 40 mg PO DAILY 07/30/20 08/08/20 Previous Rx's Medication Instructions Recorded omeprazole 20 mg PO DAILY #60 cap 08/08/20 Allergies Allergy/AdvReac Type Severity Reaction Status Date / Time Cephalosporins Allergy Verified 11/03/20 12:22 Penicillins Allergy Verified 11/03/20 12:22 cefotaxime AdvReac Unknown LIVER Verified 11/03/20 12:22 FAINA, ADAN Review of Systems Review of Systems Narrative: Remainder of complete review of systems is otherwise unremarkable except for that included in the HPI. Patient History Medical History Anxiety (~1994) Chicken pox (~1976) Depression (~1998) Irregular menstrual cycle Seizure disorder (~2009) Surgical History Anesthesia H/O congenital atrial septal defect (ASD) repair (~1992) History of section Hx of cholecystectomy (~1997) Family History Father Alcoholic hepatitis Mother Breast cancer Brother Hyperlipidemia Hypertension Sister Hypertension Grandfather Cancer Grandmother Cancer Hypertension Grandfather Dementia Grandmother No problems noted. Social History marital status: Smoking Status: Never smoker alcohol intake: current Smoking Status: Never smoker alcohol intake frequency: a few times a week Substance Use Type: does not use Exam Narrative Exam Narrative: General: Healthy appearing, in mild distress, rubbing her forehead. Able to give a complete and coherent history. Well-nourished well- developed HEENT: Moist mucous membranes, normal sclera with reactive pupils, Neck: supple Respiratory: Lungs are clear to auscultation, no wheezing no rales no rhonchi. Full and symmetrical air movement Cardiac: Regular rate and rhythm no murmurs no bruits Abdomen: Soft, nontender, good bowel tones, no flank pain Skin: Warm and dry, no rashes Neurologic: Grossly neurologically intact with no obvious asymmetries or abnormalities Extremities: No trauma, well perfused Psych: Cooperative, appropriate insight and affect Initial Vital Signs Initial Vital Signs: Vital Signs Temperature 99.1 F 11/03/20 12:20 Pulse Rate 68 11/03/20 12:20 Respiratory Rate 15 11/03/20 12:20 Blood Pressure 138/81 11/03/20 12:20 Pulse Oximetry 97 11/03/20 12:20 Course Orders Ordered: ED Orders 11/03/20 12:36 CT head/brain wo con Stat 11/03/20 14:56 Complete Blood Count AUTO DIFF Stat Comprehensive Metabolic Panel Stat Discontinued Medications Acetaminophen (Acetaminophen 325 Mg Tablet) 650 mg PO NOW ONE Stop: 11/03/20 12:25 Last Admin: 11/03/20 12:39 Dose: 650 mg Documented by: KBROTEM Dexamethasone (Dexamethasone 10 Mg/Ml Vial) 10 mg IV NOW ONE Stop: 11/03/20 14:47 Last Admin: 11/03/20 14:57 Dose: 10 mg Documented by: MELODY Diphenhydramine HCl (Diphenhydramine 50 Mg/Ml Vial) 25 mg IV NOW ONE Stop: 11/03/20 14:47 Last Admin: 11/03/20 14:57 Dose: 25 mg Documented by: MELODY Sodium Chloride (Normal Saline 0.9%) 1,000 mls @ 1,000 mls/hr IV BOLUS ONE Stop: 11/03/20 15:45 Last Infusion: 11/03/20 16:05 Dose: 0 mls/hr Documented by: Admin: 11/03/20 14:57 Dose: 1,000 mls/hr Documented by: MELODY Metoclopramide HCl (Metoclopramide 10 Mg/2 Ml Inj) 10 mg IV NOW ONE Stop: 11/03/20 14:47 Last Admin: 11/03/20 14:57 Dose: 10 mg Documented by: MELODY Vital Signs Vital signs: Vital Signs - 8 hr 11/03/20 12:20 Temperature 99.1 F Pulse Rate 68 Respiratory Rate 15 Blood Pressure 138/81 Pulse Oximetry 97 MDM - Headache Medical Records Attestation: I reviewed the patient's medical records. Lab Data Attestation: I reviewed the patient's lab results. Result diagrams: 11/03/20 14:56 11/03/20 14:56 Labs: Lab Results 11/03/20 11/03/20 Range/Units 14:56 14:56 WBC 8.3 (4.5-11.0) X10^3/uL RBC 5.25 H (4.0-5.2) X10^6/uL Hgb 15.7 (12.0-16.0) g/dL Hct 47.3 H (36-46) % MCV 90.1 (80-100) fL MCH 29.9 (26-34) PG MCHC 33.1 (30-36) % RDW 14.0 (11.6-14.8) % Plt Count 316 (150-400) X10^3/uL Neut % (Auto) 69.4 (50-75) % Lymph % (Auto) 20.8 L (25-40) % [place] % (Auto) 7.6 (3-14) % Eos % (Auto) 1.8 L (2-4) % Baso % (Auto) 0.4 (0-2) % Neut # (Auto) 5800 (9947-3042) /uL Lymph # (Auto) 1700 (7473-6961) /uL [place] # (Auto) 600 (0-900) /uL Eos # (Auto) 200 (0-450) /uL Baso # (Auto) 0 (0-100) /uL Sodium 137 (137-145) mmol/L Potassium 4.0 (3.4-5.1) mmol/L Chloride 103 (98-107) mmol/L Carbon Dioxide 28 (22-32) mmol/L BUN 10 (7-17) mg/dL Creatinine 0.83 (0.52-1.04) mg/dL Estimated GFR > 60.0 (>60) mL/min BUN/Creatinine Ratio 12.0 (6-22) Glucose 86 (70-100) mg/dL Calcium 9.5 (8.4-10.2) mg/dL Total Bilirubin 0.7 (0.2-1.3) mg/dL AST 28 (14-36) IU/L ALT 16 (<35) IU/L Alkaline Phosphatase 70 (38-126) U/L Total Protein 7.3 (6.3-8.2) g/dL Albumin 4.4 (3.5-5.0) g/dL Globulin 2.9 (1.7-4.1) g/dL Albumin/Globulin Ratio 1.5 (1.0-2.8) Imaging Data CT scan - head: Radiologist's Impression: FINDINGS: Image quality: Excellent. CSF spaces: Basal cisterns are patent. No extra-axial fluid collections. Ventricles are normal in size and shape. Brain: No midline shift. No intracranial masses or hemorrhage. Daily-white matter interface is normal. Focal thickening of the anterior dura can be seen, as on series 2, image 22, which is stable compared to 2020. Skull and face: Calvarium and visualized facial bones are intact, without suspicious lesions. Sinuses: Visualized sinuses and mastoids are clear. IMPRESSION: No acute intracranial hemorrhage is seen. No acute intracranial process is seen. Dictated by: Stanley Figueroa M.D. on 11/03/2020 at 11:59 MDM Narrative Medical decision making narrative: 48 hours of waxing and waning headache after a severe crying episode. No evidence of meningitis, sinusitis, subdural hematoma, intracranial masses. A subarachnoid hemorrhage is not entirely ruled out as the CT scan is done 48 hours after the onset of headache however as the symptoms have been waxing and waning this certainly is less likely. Patient is entirely reliable and has easy access back to the emergency department if symptoms worsen. With shared decision-making we opted to take a wait and watch approach at this time as her headache was entirely resolved with a L of fluid, 10 mg of IV Decadron, IV Reglan and Benadryl. I have suggested that she take no additional headache medications and if her symptoms return the next step would be either a CT angiogram or an MRI of the brain. She understands. She is safe for discharge at this time. Discharge Plan Departure Patient Disposition: Home Clinical Impression: Headache Qualifiers: Headache type: unspecified Headache chronicity pattern: acute headache Intractability: not intractable Qualified Code(s): R51.9 - Headache, unspecified Instructions: DI for Headache Activity Restrictions/Additional Instructions: Thank you for coming in today I did not find any significant abnormalities on your workup today. Your lab work was reassuring. There is no evidence of overwhelming infection. The CT scan was equally reassuring. No evidence of significant head bleeding, tumors or other frightening explanations for your headache. With fluids, nausea medicine and steroids your headache has essentially resolved. There is still of very small possibility that this could be related to an aneurysm bleeding inside your brain. With the CT scan is done 2 days after the initial pain, it is not very good at picking this up. On the other hand the pain usually does not wax and wane as yours has done. The next step in figuring this out with the either a CT angiogram to look at all of the blood vessels in your head or an MRI of your brain. We discussed these options today and together decided to go with a wait and watch approach. I would suggest that you do not take additional pain medications this evening. If your pain level again is approaching severe, you need to return to the ER in we need to consider additional imaging studies I wish you the best Prescriptions: No Action lamotrigine 200 mg tablet 200 mg PO BID RF: 0 alprazolam 1 mg tablet 1 mg PO DAILY PRN (Reason: Insomnia) RF: 0 citalopram 20 mg tablet 40 mg PO DAILY RF: 0 omeprazole 20 mg capsule,delayed release(DR/EC) 20 mg PO DAILY Qty: 60 RF: 0 Referrals: Rainer Lozoya MD [Primary Care Provider] -
[2020-11-03] MEDS: METOCLOPRAMIDE 10 MG/2 ML INJ IV (14:57)
[2020-11-03] MEDS: diphenhydrAMINE 50 MG/ML VIAL 25 MG IV (14:57)
[2020-11-03] MEDS: DEXAMETHASONE 10 MG/ML VIAL IV (14:57)
[2020-11-03] MEDS: SODIUM CHLORIDE 0.9% 1,000 ML 1000 ML IV (14:57)
[2020-11-03 15:05] LABS: Add Manual Diff / Slide Review NO; Basophils Absolute Auto 0 /uL (0-100); Basophils Percent Auto 0.4 % (0-2); Eosinophils Absolute Auto 200 /uL (0-450); Eosinophils Percent Auto 1.8 % (2-4); Hematocrit 47.3 % (36-46); Hemoglobin 15.7 g/dL (12.0-16.0); Lymphocytes Absolute Auto 1700 /uL (1100-4500); Lymphocytes Percent Auto 20.8 % (25-40); Mean Corpuscular HGB Conc 33.1 % (30-36); Mean Corpuscular Hemoglobin 29.9 PG (26-34); Mean Corpuscular Volume 90.1 fL (80-100); Monocytes Absolute Auto 600 /uL (0-900); Monocytes Percent Auto 7.6 % (3-14); Neutrophils Absolute Auto 5800 /uL (1500-7000); Neutrophils Percent Auto 69.4 % (50-75); Platelet Count 316 X10^3/uL (150-400); Red Blood Cell Count 5.25 X10^6/uL (4.0-5.2); White Blood Cell Count 8.3 X10^3/uL (4.5-11.0)
[2020-11-03 15:13] LABS: Alanine Aminotransferase 16 IU/L (<35); Albumin 4.4 g/dL (3.5-5.0); Albumin Globulin Ratio 1.5 (1.0-2.8); Alkaline Phosphatase 70 U/L (38-126); Aspartate Aminotransferase 28 IU/L (14-36); Bilirubin Total 0.7 mg/dL (0.2-1.3); Blood Urea Nitrogen 10 mg/dL (7-17); Calcium 9.5 mg/dL (8.4-10.2); Carbon Dioxide 28 mmol/L (22-32); Chloride 103 mmol/L (98-107); Estimated Glomerular Filt Rate > 60.0 mL/min (>60); Globulin 2.9 g/dL (1.7-4.1); Glucose 86 mg/dL (70-100); HEMOLYSIS < 15 (0-50); Sodium 137 mmol/L (137-145); Total Protein 7.3 g/dL (6.3-8.2)
[2020-11-03 16:55] VITALS: BP 122/80; PULSE 72; O2SAT 94
== END 2020-11-03 16:56 | disposition home or self-care (01) ==
PROVIDERS: Emergency Provider Emergency Medicine; PCP Family Medicine
DX: R51.9 Headache, unspecified (principal)
CPT/HCPCS: 36415; 70450; 80053; 85025; 96361; 96374; 96375; 99284; J1100; J1200; J2765

== ENCOUNTER 2020-11-04 11:51 | Emergency (ER) | payer OTHER, SELFPAY ==
[2020-11-04 11:55] VITALS: BP 145/85; PULSE 66; RESP 14; TEMP 36.7; O2SAT 97; BMI 31.8
--- NOTE | 2020-11-04 12:09 | DI.MRI.S_ITS ---
PROCEDURE: MR STROKE Pre- and post-contrast brain MRI, non-contrast brain MR angiogram, pre- and postcontrast neck MR angiogram INDICATIONS: thunderclap headache, persistent 3 days. -CT yesterday TECHNIQUE: Brain: Noncontrast axial T1 spin echo, axial T2 fast spin echo, sagittal and axial FLAIR, coronal T2 fast spin echo, axial gradient echo, axial diffusion and ADC through the brain. After the administration of contrast, axial 3D VIBE of the cranial vasculature and brain. Brain MRA: Non-contrast 3-D time of flight MR angiogram, with multiple pluqdlj-asviksdao-vuyiuwxxtx (MIP) reformats performed. Neck MRA: Axial and sagittal TruFISP through the neck. Coronal dynamic MR angiogram during administration of contrast in the arterial and venous phases, with 3-dimenstional qwegdcq-flpubxetg-mrencbllry (MIP) reformats constructed from subtraction images. COMPARISON: [facility], MR, BRAIN WITH AND WITHOUT CONTRAS, 05/29/2011, 10:00. FINDINGS: BRAIN: CSF spaces: Ventricles are grossly unremarkable. Basal cisterns are patent. No extra-axial fluid collections. Brain: No midline shift. There is extra-axial enhancing focus along the midline anterior falx measuring approximately 7 mm on axial pulse sequences is suggestive of meningioma although technically nonspecific. Daily-white matter interface appears intact. No acute ischemia. No abnormal enhancement. Skull and face: Calvarium and facial bones appear intact. Orbits appear normal. Sinuses: Sinuses and mastoids are clear. HEAD MR ANGIOGRAPHY: Anterior circulation: Intracranial internal carotid arteries (ICA): Patent. Anterior cerebral arteries (MEEK): Patent. Middle cerebral arteries (MCA): Patent. Other: No aneurysms are seen. Posterior circulation: Visualized portions of the vertebral arteries: Patent. Mild smooth long segment narrowing of the distal left V4 segment. Basilar artery: Patent. Posterior cerebral arteries (SOLAR INSTALLATION MANAGER): Patent. Other: No aneurysms are seen. NECK MR ANGIOGRAPHY: Carotid system: Origins of the common carotid arteries (CCA) not well visualized. Common carotid arteries (CCA): Patent. Internal carotid arteries (ICA): Patent. Posterior circulation: The origins of the vertebral arteries are not well visualized bilaterally. Extracranial portions of both vertebral arteries: There is smooth narrowing of the distal V4 segment on the left Basilar artery: Patent. Soft tissues: Visualized neck soft tissues demonstrate no suspicious abnormalities. Bones: No suspicious bony lesions. Cervical spondylosis and facet arthropathy. IMPRESSION: BRAIN MRI: No evidence of acute ischemia. Enhancing lesion involving the anterior falx measuring 7 mm, statistically represents meningioma although technically nonspecific. This appears new or possibly increased since 05/29/11. Continued surveillance with contrast enhanced MRI could be performed as clinically warranted. BRAIN MR ANGIOGRAM: No intracranial stenosis or occlusion. NECK MR ANGIOGRAM: No hemodynamically significant (>50%) ICA stenosis Dictated by: Ayaz Lomas M.D. on 11/04/2020 at 15:49 Approved by: Ayaz Lomas M.D. on 11/04/2020 at 16:12
[2020-11-04 12:31] LABS: COVID19 -Nasal RAPID Negative (Negative)
[2020-11-04 12:53] VITALS: BP 130/75; PULSE 70; RESP 14; TEMP 36.8; O2SAT 98
[2020-11-04] MEDS: SODIUM CHLORIDE 0.9% 1,000 ML 1000 ML IV (13:17)
[2020-11-04] MEDS: diphenhydrAMINE 50 MG/ML VIAL IV (13:17)
[2020-11-04] MEDS: METOCLOPRAMIDE 10 MG/2 ML INJ IV (13:18)
--- NOTE | 2020-11-04 16:14 | ED_ITS ---
HPI - Headache General Chief Complaint: Headache Stated Complaint: headache 3 days Time Seen by Provider: 11/04/20 12:09 Mode of arrival: Ambulatory Limitations: no limitations History of Present Illness HPI Narrative: 50-year-old woman with a history of seizures and depression presents with 7 to hours of severe headache. She does not typically have headaches. On day 1 she saw her primary care physician and got Toradol which helped slightly. On day 2 she was seen in the emergency room yesterday with relatively unremarkable workup including negative head CT scan. She was given IV Decadron at the time and symptoms were improved on discharge. Headache is returned today and she comes in for further evaluation. Possibility of aneurysmal bleed or hair old headache was entertained with sure decision-making yesterday we opted to not do a lumbar puncture. Returning today an MRI is ordered to see if additional etiology can be identified. Yesterday there was no sign of infection she does not have any nuchal rigidity to suggest meningitis. She did not have sinusitis evident on CT scans. As discussed yesterday if her symptoms were to return I did ask that she not take additional medications and come back for further evaluation. She has followed directions perfectly. Related Data Home Medications Medication Instructions Recorded Confirmed alprazolam 1 mg tablet 1 mg PO DAILY PRN 03/17/20 08/08/20 lamotrigine 200 mg tablet 200 mg PO BID 03/17/20 08/08/20 citalopram 40 mg PO DAILY 07/30/20 08/08/20 Previous Rx's Medication Instructions Recorded omeprazole 20 mg PO DAILY #60 cap 08/08/20 Allergies Allergy/AdvReac Type Severity Reaction Status Date / Time Cephalosporins Allergy Verified 11/04/20 11:58 Penicillins Allergy Verified 11/04/20 11:58 cefotaxime AdvReac Unknown LIVER Verified 11/04/20 11:58 PROBLEM, JUANDICE Review of Systems Review of Systems Narrative: Pertinent positive and negative findings as per HPI Remainder of review of systems is otherwise unremarkable for Constitutional: Fevers, chills, weakness ENT: No sore throat, neck pain, ear pain CV: Chest pain, palpitations, Respiratory: Cough, wheeze, dyspnea GI: Nausea, vomiting, diarrhea, : Dysuria, hematuria, Patient History Medical History Anxiety (~1994) Chicken pox (~1976) Depression (~1998) Irregular menstrual cycle Seizure disorder (~2009) Surgical History Anesthesia H/O congenital atrial septal defect (ASD) repair (~1992) History of section Hx of cholecystectomy (~1997) Family History Father Alcoholic hepatitis Mother Breast cancer Brother Hyperlipidemia Hypertension Sister Hypertension Grandfather Cancer Grandmother Cancer Hypertension Grandfather Dementia Grandmother No problems noted. Social History marital status: Smoking Status: Never smoker alcohol intake: current Smoking Status: Never smoker alcohol intake frequency: a few times a week Substance Use Type: does not use Exam Narrative Exam Narrative: General: Alert appropriate in no acute distress Respiratory: Able to speak in full sentences, no obvious respiratory distress Skin: No obvious rashes, warm and dry Neurologic: Grossly intact no obvious asymmetries or abnormalities Psych: appropriate insight and affect, cooperative Initial Vital Signs Initial Vital Signs: Vital Signs Temperature 98.1 F 11/04/20 11:55 Pulse Rate 66 11/04/20 11:55 Respiratory Rate 14 11/04/20 11:55 Blood Pressure 145/85 H 11/04/20 11:55 Pulse Oximetry 97 11/04/20 11:55 Course Orders Ordered: ED Orders 11/04/20 12:09 MR stroke Stat 11/04/20 12:12 COVID19 -Nasal swab/Pre-Proc Stat Discontinued Medications Acetaminophen (Acetaminophen 325 Mg Tablet) 975 mg PO NOW ONE Stop: 11/04/20 16:14 Last Admin: 11/04/20 16:18 Dose: 975 mg Documented by: Diphenhydramine HCl (Diphenhydramine 50 Mg/Ml Vial) 50 mg IV NOW ONE Stop: 11/04/20 12:10 Last Admin: 11/04/20 13:17 Dose: 50 mg Documented by: ABDULAZIZ Sodium Chloride (Normal Saline 0.9%) 1,000 mls @ 1,000 mls/hr IV BOLUS ONE Stop: 11/04/20 13:11 Last Infusion: 11/04/20 14:40 Dose: 0 mls/hr Documented by: Admin: 11/04/20 13:17 Dose: 1,000 mls/hr Documented by: ABDULAZIZ Ketorolac Tromethamine (Ketorolac 30 Mg/Ml Vial) 15 mg IV NOW ONE Stop: 11/04/20 16:29 Metoclopramide HCl (Metoclopramide 10 Mg/2 Ml Inj) 10 mg IV NOW ONE Stop: 11/04/20 12:10 Last Admin: 11/04/20 13:18 Dose: 10 mg Documented by: ABDULAZIZ Vital Signs Vital signs: Vital Signs - 8 hr 11/04/20 11:55 11/04/20 12:53 Temperature 98.1 F 98.3 F Pulse Rate 66 70 Respiratory Rate 14 14 Blood Pressure 145/85 H 130/75 Pulse Oximetry 97 98 MDM - Headache Medical Records Attestation: I reviewed the patient's medical records. Lab Data Attestation: I reviewed the patient's lab results. Labs: Lab Results 11/04/20 Range/Units 12:12 SARS-CoV-2 (PCR) Negative (Negative) Imaging Data MRI brain: Radiologist's Impression: INDINGS: BRAIN: CSF spaces: Ventricles are grossly unremarkable. Basal cisterns are patent. No extra-axial fluid collections. Brain: No midline shift. There is extra-axial enhancing focus along the midline anterior falx measuring approximately 7 mm on axial pulse sequences is suggestive of meningioma although technically nonspecific. Daily-white matter interface appears intact. No acute ischemia. No abnormal enhancement. Skull and face: Calvarium and facial bones appear intact. Orbits appear normal. Sinuses: Sinuses and mastoids are clear. HEAD MR ANGIOGRAPHY: Anterior circulation: Intracranial internal carotid arteries (ICA): Patent. Anterior cerebral arteries (MEEK): Patent. Middle cerebral arteries (MCA): Patent. Other: No aneurysms are seen. Posterior circulation: Visualized portions of the vertebral arteries: Patent. Mild smooth long segment narrowing of the distal left V4 segment. Basilar artery: Patent. Posterior cerebral arteries (MAINTENANCE OF WAY SUPERVISOR): Patent. Other: No aneurysms are seen. NECK MR ANGIOGRAPHY: Carotid system: Origins of the common carotid arteries (CCA) not well visualized. Common carotid arteries (CCA): Patent. Internal carotid arteries (ICA): Patent. Posterior circulation: The origins of the vertebral arteries are not well visualized bilaterally. Extracranial portions of both vertebral arteries: There is smooth narrowing of the distal V4 segment on the left Basilar artery: Patent. Soft tissues: Visualized neck soft tissues demonstrate no suspicious abnormalities. Bones: No suspicious bony lesions. Cervical spondylosis and facet arthropathy. IMPRESSION: BRAIN MRI: No evidence of acute ischemia. Enhancing lesion involving the anterior falx measuring 7 mm, statistically represents meningioma although technically nonspecific. This appears new or possibly increased since 05/29/11. Continued surveillance with contrast enhanced MRI could be performed as clinically warranted. BRAIN MR ANGIOGRAM: No intracranial stenosis or occlusion. NECK MR ANGIOGRAM: No hemodynamically significant (>50%) ICA stenosis Dictated by: Ayaz Lomas M.D. on 11/04/2020 at 15:49 MDM Narrative Medical decision making narrative: 50-year-old woman with no prior history of headaches now on day 3 of severe headache. MRI today is reassuring with no suggestion of masses, tumor, inflammation, aneurysm or hemorrhage. She still h as no infectious symptoms and no nuchal rigidity to suggest meningitis. She does note that the week has been very stressful the headache has now localized over the right occipital insertion. I suspect that this is anxiety and stress related and should improve over the next number of days. At this point with the extensive imaging done simply taking medicine to cover the pain is safe. As she has never had migraine before I do not believe this is migraine variant and I do not think it is appropriate to try triptans. She does have the weekend off and is looking forward to some quiet time to simply relax. we briefly discussed massage therapy as a possible adjunct to Tylenol ibuprofen. Incidental probable meningioma was noted on her brain MRI. Findings are reviewed with her. I do not believe that this has anything to do with current headaches. She is safe for home discharge. Discharge Plan Departure Patient Disposition: Home Clinical Impression: Headache Qualifiers: Headache type: unspecified Headache chronicity pattern: acute headache Intractability: not intractable Qualified Code(s): R51.9 - Headache, unspecified Instructions: DI for Headache Activity Restrictions/Additional Instructions: thank you for coming back today the MRI of your brain was very reassuring. There is no evidence of masses, tumors, aneurysm or bleeding. You do have an incidental finding of a meningioma that as likely been there for quite a while and is not causing any problems in the specifically not related to this current headache. With the full workup that is been done at this point, there is no evidence of infection, meningitis, sinusitis. I am going to suggest that you relax over the weekend, allow yourself some private quite time to process some of the emotional events from this week. using 400 mg of ibuprofen (2 ykuj-cqr-qiqicrj pills) and 1 Tylenol every 6 hours can be very helpful in controlling pain. It may also be worth considering a massage to see if this has a positive influence in controlling your pain please follow-up with your primary care doctor if you have persistent symptoms. I hope you feel better. Prescriptions: No Action lamotrigine 200 mg tablet 200 mg PO BID RF: 0 alprazolam 1 mg tablet 1 mg PO DAILY PRN (Reason: Insomnia) RF: 0 citalopram 20 mg tablet 40 mg PO DAILY RF: 0 omeprazole 20 mg capsule,delayed release(DR/EC) 20 mg PO DAILY Qty: 60 RF: 0 Referrals: aRiner Lozoya MD [Primary Care Provider] -
[2020-11-04] MEDS: ACETAMINOPHEN 325 MG TABLET 975 MG PO (16:18)
[2020-11-04 16:58] VITALS: BP 109/62; PULSE 76; O2SAT 97
[2020-11-04] MEDS: KETOROLAC 30 MG/ML VIAL 15 MG IV (17:01)
== END 2020-11-04 17:07 | disposition home or self-care (01) ==
PROVIDERS: Emergency Provider Emergency Medicine; PCP Family Medicine
DX: R51.9 Headache, unspecified (principal); Z20.822 Contact with and (suspected) exposure to COVID-19; Z86.69 Personal history of other diseases of the nervous system and sense organs
CPT/HCPCS: 36415; 70548; 70553; 87635; 96361; 96374; 96375; 99284; C9803; A9579; J1200; J1885; J2765

== ENCOUNTER → 2021-11-28 07:43 | Outpatient (CLI) | payer OTHER, SELFPAY ==
--- NOTE | 2021-11-28 | DI.MG.S_ITS ---
BILATERAL DIGITAL SCREENING MAMMOGRAM 3D/2D WITH CAD: 11/28/2021 CLINICAL: Routine screening. Family history of breast cancer. Comparison is made to exams dated: 03/19/2020 mammogram, 12/11/2017 mammogram, and 11/16/2016 mammogram - [facility]. There are scattered fibroglandular elements in both breasts. Current study was also evaluated with a Computer Aided Detection (CAD) system. There are mole markers on both breasts. No significant masses, calcifications, or other findings are seen in either breast. There has been no significant interval change. IMPRESSION: NEGATIVE There is no mammographic evidence of malignancy. A 1 year screening mammogram is recommended. This exam was interpreted at Station ID: [id number]. NOTE: For mammograms, a report in lay terms will be sent to the patient. Approximately 15% of breast malignancies will not be visualized mammographically. In the management of a palpable breast mass, a negative mammogram must not discourage biopsy of a clinically suspicious lesion. Electronically Signed By: Asim Hollingsworth acr/mathieu:11/28/2021 08:43:37 copy to: Oralia Torrez letter sent: Normal Exam ACR BI-RADS Category 1: Negative [id number]
== END ==
PROVIDERS: PCP Family Medicine; Referring Provider Family Medicine; Visit Provider Family Medicine
DX: Z12.31 Encounter for screening mammogram for malignant neoplasm of breast (principal); Z80.3 Family history of malignant neoplasm of breast
CPT/HCPCS: 77063; 77067

== ENCOUNTER → 2022-06-15 07:38 | Outpatient (CLI) | payer OTHER, SELFPAY ==
--- NOTE | 2022-06-15 | DI.MRI.S_ITS ---
PROCEDURE: MR HEAD/BRAIN WO/W CON INDICATIONS: Unspecified visual disturbance TECHNIQUE: Noncontrast axial T1 spin echo, axial T2 fast spin echo, sagittal and axial FLAIR, coronal T2 fast spin echo, axial gradient echo, axial diffusion and ADC through the brain. After the administration of contrast, axial and coronal and sagittal 3D VIBE or T1 spin echo with fat saturation through the brain. COMPARISON 11/04/2020 FINDINGS: Image quality: Excellent. CSF Spaces: Basal cisterns are patent. No extra-axial fluid collections. Ventricles are normal in size and shape. Brain: No midline shift. No intracranial bleeds or masses. No abnormal intracranial enhancement. The brainstem appears normal. Diffusion-weighted images demonstrate no acute ischemic insults. No chronic ischemic insults. Normal intravascular flow voids are present. Skull and face: Calvarial marrow is normal in signal. Orbits appear normal. Sinuses: Sinuses and mastoids appear clear. IMPRESSION: No acute intracranial abnormality. No significant change from previous exam. Dictated by: Je Freeman M.D. on 06/15/2022 at 13:27 Approved by: Je Freeman M.D. on 06/15/2022 at 13:29
== END ==
PROVIDERS: PCP Family Medicine; Referring Provider Family Medicine; Visit Provider Family Medicine
DX: R42 Dizziness and giddiness (principal); H53.9 Unspecified visual disturbance
CPT/HCPCS: 70553; A9579

== ENCOUNTER 2022-06-19 08:58 | Emergency (ER) | payer OTHER, SELFPAY ==
[2022-06-19] VITALS (7 sets, daily range): BP systolic 125–143; BP diastolic 86–88; PULSE 68–75; RESP 12–24; TEMP 36.7; O2SAT 97–100
--- NOTE | 2022-06-19 09:25 | ED_ITS ---
HPI - General Adult General Chief complaint: Neuro Symptoms/Deficit Stated complaint: sent by Eye double vision/balance issue Time Seen by Provider: 06/19/22 09:06 Source: patient Mode of arrival: Ambulatory Limitations: no limitations History of Present Illness HPI narrative: Patient is a 51-year-old female. Does have a history of depression. Also has a history of seizures. Is on lamotrigine. Is here for evaluation of double vision and balance issues. She has had these exact same symptoms in the past but today is worse than normal. She states that this is not how her seizures normally present. She woke up this morning feeling fine in the symptoms started as the morning went on. She did drive herself in. She states that it is a blurry vision and also a double vision. It seems to be both eyes but maybe left greater than right. She has had the symptoms in the past. She is seen her primary doctor. She had an MRI at the end of last week for these symptoms. She is scheduled to see a neurologist. She states she gets the symptoms approximately 2 times a week. They normally lasts for couple hours and then self resolved. The symptoms this morning just worse than what they normally are. She denies chest pain, palpitations, headache, sinus congestion, normal some tingling in her upper and lower extremities. She is not tried anything for the symptoms. She has been evaluated by an eye doctor and was told that these issues are not coming from her eyes. Related Data Home Medications Medication Instructions Recorded Confirmed alprazolam 1 mg tablet 1 mg PO DAILY PRN Insomnia 03/17/20 08/08/20 lamotrigine 200 mg tablet 200 mg PO BID 03/17/20 08/08/20 citalopram 20 mg tablet 40 mg PO DAILY 07/30/20 08/08/20 Previous Rx's Medication Instructions Recorded omeprazole 20 mg capsule,delayed 20 mg PO DAILY #60 caps 08/08/20 release Allergies Allergy/AdvReac Type Severity Reaction Status Date / Time Cephalosporins Allergy Verified 11/04/20 11:58 Penicillins Allergy Verified 11/04/20 11:58 cefotaxime AdvReac Unknown LIVER Verified 11/04/20 11:58 PROBLEM, JUANDICE Review of Systems Review of Systems ROS Unobtainable: All systems reviewed & are unremarkable except as noted in HPI and below Patient History Medical History Anxiety (~1994) Chicken pox (~1976) Depression (~1998) Irregular menstrual cycle Seizure disorder (~2009) Surgical History Anesthesia H/O congenital atrial septal defect (ASD) repair (~1992) History of section Hx of cholecystectomy (~1997) Family History Father Alcoholic hepatitis Mother Breast cancer Brother Hyperlipidemia Hypertension Sister Hypertension Grandfather Cancer Grandmother Cancer Hypertension Grandfather Dementia Grandmother No problems noted. Social History marital status: Smoking Status: Never smoker alcohol intake: current Smoking Status: Never smoker alcohol intake frequency: a few times a week Substance Use Type: does not use Exam Initial Vital Signs Initial Vital Signs: Vital Signs Pulse Rate 75 06/19/22 09:19 Pulse Oximetry 99 06/19/22 09:19 Const General: cooperative, comfortable and No ill appearing HENMT Head: normal to inspection and normocephalic Nose: external nose normal Face and sinus: normal facial exam Mouth: oral mucosae normal Eyes General: Yes appearance normal, both eyes and all related structures Periorbital: periorbital findings normal Eyelids: eyelids normal Pupils: PERRL, regular and pupil size bilaterally 6 EOM: EOM intact bilaterally, EOM normal and no movement deficit Resp Effort & Inspection: normal respiratory effort Auscultation: clear to auscultation bilaterally Cardio Rate: regular rate Rhythm: regular rhythm GI Inspection: normal to inspection Palpation: soft and No tender Skin General: no rashes or lesions noted Neuro General: patient alert, patient awake, patient oriented x3 and moves all extremities Cranial Nerves: CN's II-XI intact bilaterally Speech: speech normal Motor: muscle tone normal throughout Sensory Exam: no sensory deficits noted Extrem General: normal to inspection and capillary refill normal Scores GCS Nivia coma scale eye opening: Spontaneous Nivia coma scale verbal response: Orientated Nivia coma scale motor response: Obey commands [place] coma scale total score: 15 Course Orders Ordered: ED Orders 06/19/22 09:22 EKG-12 Lead Routine 06/19/22 09:30 Complete Blood Count AUTO DIFF Stat Comprehensive Metabolic Panel Stat Lipase Stat Discontinued Medications Lorazepam (Lorazepam 0.5 Mg Tablet) 1 mg PO NOW ONE Stop: 06/19/22 09:41 Last Admin: 06/19/22 09:55 Dose: 1 mg Documented By: MIHAELA Vital Signs Vital signs: Vital Signs - 8 hr 06/19/22 09:38 06/19/22 09:19 06/19/22 09:30 Temperature 98.0 F Pulse Rate 74 75 Respiratory Rate 19 Blood Pressure 125/88 136/86 Pulse Oximetry 99 99 Oxygen Delivery Method Room Air 06/19/22 09:30 06/19/22 10:03 06/19/22 10:30 Temperature Pulse Rate 69 75 69 Respiratory Rate 24 12 17 Blood Pressure Pulse Oximetry 99 97 100 Oxygen Delivery Method 06/19/22 11:00 06/19/22 11:19 06/19/22 11:19 Temperature Pulse Rate 68 75 Respiratory Rate 22 22 Blood Pressure 143/87 H Pulse Oximetry 98 99 Oxygen Delivery Method Medical Decision Making Differential Diagnosis Differential Diagnosis: CVA, TIA, cranial nerve palsy, ocular nerve palsy, seizu re, anxiety and oth Medical Records Medical records reviewed: Yes I reviewed the patient's medical records. Lab Data Lab results reviewed: Yes I reviewed the patient's lab results. 06/19/22 09:30 06/19/22 09:30 Labs: Lab Results 06/19/22 06/19/22 Range/Units 09:30 09:30 WBC 7.1 (4.5-11.0) X10^3/uL RBC 4.96 (4.0-5.2) X10^6/uL Hgb 15.2 (12.0-16.0) g/dL Hct 44.9 (36-46) % MCV 90.4 (80-100) fL MCH 30.6 (26-34) PG MCHC 33.8 (30-36) % RDW 13.7 (11.6-14.8) % Plt Count 298 (150-400) X10^3/uL Neut % (Auto) 73.4 (50-75) % Lymph % (Auto) 16.1 L (25-40) % [place] % (Auto) 8.0 (3-14) % Eos % (Auto) 2.1 (2-4) % Baso % (Auto) 0.4 (0-2) % Neut # (Auto) 5200 (1390-0091) /uL Lymph # (Auto) 1100 (6628-3552) /uL [place] # (Auto) 600 (0-900) /uL Eos # (Auto) 100 (0-450) /uL Baso # (Auto) 0 (0-100) /uL Sodium 138 (137-145) mmol/L Potassium 4.0 (3.4-5.1) mmol/L Chloride 101 (98-107) mmol/L Carbon Dioxide 28 (22-32) mmol/L BUN 13 (7-17) mg/dL Creatinine 0.88 (0.52-1.04) mg/dL Estimated GFR > 60 (>60) mL/min BUN/Creatinine Ratio 14.8 (6-22) Glucose 79 (70-100) mg/dL Calcium 8.8 (8.4-10.2) mg/dL Total Bilirubin 0.6 (0.2-1.3) mg/dL AST 26 (14-36) IU/L ALT 22 (<35) IU/L Alkaline Phosphatase 67 (38-126) U/L Total Protein 6.9 (6.3-8.2) g/dL Albumin 4.2 (3.5-5.0) g/dL Globulin 2.7 (1.7-4.1) g/dL Albumin/Globulin Ratio 1.6 (1.0-2.8) Lipase 66 (23-300) U/L ECG Data Attestation: I personally reviewed and interpreted this ECG as follows: Interpretation: Sinus rhythm Left axis deviation Ventricular rate is 72 Normal QRS Normal QTC No ST T wave changes MDM Narrative Medical decision making narrative: Patient has had symptoms very similar to this in the past. She is been seen by her primary doctor. Had an MRI at the end of last week that was unremarkable. She is also had a head CT in the past. There is no signs of a mass. The MRI a couple days ago was unremarkable. No signs of MS/CVA. She is also seen Ophthalmology and was told that there is no intrinsic eye pathology. Her exam today is not consistent with a cranial nerve palsy/extraocular muscle impingement. I do have some concern about a potential focal seizure. She was given Ativan. This seemed to improve/resolve her symptoms. She is no fevers. No trauma. Will hold on further workup for now and have her contact both her [facility] doctor and also her neurologist for follow-up. She expressed understanding and agreement. Discharge Plan Departure Patient Disposition: Home Clinical Impression: Double vision Instructions: DI for Double Vision Activity Restrictions/Additional Instructions: I do recommend that you continue to take all of your medications as directed and keep all of your scheduled medical appointments. I do recommend that you follow-up with your neurologist like we discussed. Return to the emergency department for new symptoms. Prescriptions: No Action lamotrigine 200 mg tablet 200 mg PO BID alprazolam 1 mg tablet 1 mg PO DAILY PRN (Reason: Insomnia) citalopram 20 mg tablet 40 mg PO DAILY omeprazole 20 mg capsule,delayed release(DR/EC) 20 mg PO DAILY Qty: 60 0RF Referrals: Rainer Lozoya MD [Primary Care Provider] - Stand Alone Forms: Patient Portal/API
[2022-06-19 09:38] LABS: Add Manual Diff / Slide Review NO; Basophils Absolute Auto 0 /uL (0-100); Basophils Percent Auto 0.4 % (0-2); Eosinophils Absolute Auto 100 /uL (0-450); Eosinophils Percent Auto 2.1 % (2-4); Hematocrit 44.9 % (36-46); Hemoglobin 15.2 g/dL (12.0-16.0); Lymphocytes Absolute Auto 1100 /uL (1100-4500); Lymphocytes Percent Auto 16.1 % (25-40); Mean Corpuscular HGB Conc 33.8 % (30-36); Mean Corpuscular Hemoglobin 30.6 PG (26-34); Mean Corpuscular Volume 90.4 fL (80-100); Monocytes Absolute Auto 600 /uL (0-900); Neutrophils Absolute Auto 5200 /uL (1500-7000); Neutrophils Percent Auto 73.4 % (50-75); Platelet Count 298 X10^3/uL (150-400); Red Blood Cell Count 4.96 X10^6/uL (4.0-5.2); Red Cell Distribution Width 13.7 % (11.6-14.8); White Blood Cell Count 7.1 X10^3/uL (4.5-11.0)
[2022-06-19 09:49] LABS: Alanine Aminotransferase 22 IU/L (<35); Albumin 4.2 g/dL (3.5-5.0); Albumin Globulin Ratio 1.6 (1.0-2.8); Alkaline Phosphatase 67 U/L (38-126); Aspartate Aminotransferase 26 IU/L (14-36); BUN Creatinine Ratio 14.8 (6-22); Bilirubin Total 0.6 mg/dL (0.2-1.3); Blood Urea Nitrogen 13 mg/dL (7-17); Calcium 8.8 mg/dL (8.4-10.2); Carbon Dioxide 28 mmol/L (22-32); Chloride 101 mmol/L (98-107); Estimated Glomerular Filt Rate > 60 mL/min (>60); Globulin 2.7 g/dL (1.7-4.1); Glucose 79 mg/dL (70-100); HEMOLYSIS < 15 (0-50); Lipase 66 U/L (23-300); Sodium 138 mmol/L (137-145); Total Protein 6.9 g/dL (6.3-8.2)
[2022-06-19] MEDS: LORazepam 0.5 MG TABLET 1 MG PO (09:55)
== END 2022-06-19 11:28 | disposition home or self-care (01) ==
PROVIDERS: Emergency Provider Emergency Medicine; PCP Family Medicine
DX: H53.2 Diplopia (principal)
CPT/HCPCS: 36415; 80053; 83690; 85025; 93005; 99283; 99284

== ENCOUNTER 2022-09-07 08:33 | Observation (INO) | payer OTHER, SELFPAY ==
[2022-09-07] VITALS (10 sets, daily range): BP systolic 109–138; BP diastolic 65–92; PULSE 69–82; RESP 13–18; TEMP 36.3–36.9; O2SAT 94–100; BMI 25.0
--- NOTE | 2022-09-07 | DI.MRI.S_ITS ---
PROCEDURE: MR LUMBAR SPINE WO/W CON INDICATIONS: neuro sxs - MS? TECHNIQUE: Noncontrast sagittal T1 spin echo and T2 fast echo, sagittal STIR, and T2 fast spin echo through the lumbar spine. In cases with scoliosis, additional coronal T2 fast spin echo may be performed. COMPARISON: None. FINDINGS: Image quality: Excellent. Alignment and Curvature: There is normal bony alignment. Bone Marrow: Marrow is of normal overall signal. No acute vertebral body compression fractures. Spinal Cord: Conus medullaris terminates at the L1 level. Visualized cord demonstrates normal signal and size. Paraspinous Soft Tissues: There is a enhancing mass lesion involving the left kidney, partially imaged , measuring less 3.3 cm T12-L1: Normal appearance. L1-L2: Normal appearance. L2-L3: Normal appearance. L3-L4: Normal appearance. L4-L5: Normal appearance. L5-S1: Normal appearance. IMPRESSION: Normal MRI lumbar spine Incidental left renal enhancing mass lesion containing fat may reflect angiomyolipoma. Consider follow-up renal protocol CT with contrast Approved by: Ghassan Currie M.D. on 09/08/2022 at 17:42
--- NOTE | 2022-09-07 | DI.MRI.S_ITS ---
PROCEDURE: MR THORACIC SPINE WO/W CON INDICATIONS: neuro deficits poss MS TECHNIQUE: Noncontrast sagittal T1 spin echo and T2 fast spin echo, sagittal STIR, axial T1 and T2 fast spin echo through the thoracic spine. After the administration of contrast, axial and sagittal T1 spin echo with fat saturation through the thoracic spine. COMPARISON: [facility], MR, MR HEAD/BRAIN WO/W CON, 09/07/2022, 14:42. FINDINGS: Image quality: Excellent. Alignment and curvature: There is normal bony alignment. Marrow: Mild degenerative endplate changes noted in the lower thoracic spine Spinal cord: Visualized spinal cord is of normal signal and size, without abnormal enhancement. Paraspinous soft tissues: No paravertebral masses or abnormal enhancement. Miscellaneous: Central canal and foramina appear widely patent at all scanned levels. IMPRESSION: Mild degenerative changes without evidence of demyelinating plaque or cord compression. No abnormal enhancement Approved by: Ghassan Currie M.D. on 09/08/2022 at 17:47
--- NOTE | 2022-09-07 | DI.ECHO.S_ITS ---
[place] +---------+ [facility] +---------+ : : [address] : : : : [id number] : : : : Phone: [phone]+ Echocardiogram Report + + :Name: SAKSHI CORREA Study Date: 09/07/2022 Height: 65 in : :[facility] [employer] [facility] ReadingLocation: Weight: 150 lb : : Gender: Female BSA: 1.8 m2 : :: 1970 Age: 52 yrs BP: 128/70 mmHg: :Reason For Study: TIA/CVA : :Ordering Physician: AMY, : :MARIALUISA Performed By: Lyly Melendez : :Referring: MARIALUISA REYES M : + + Interpretation Summary Patient states history of IAS repair 30 years ago. The ejection fraction is estimated to be 60-65%. Injection of contrast documented no interatrial shunt. There is moderate mitral regurgitation. There is mild aortic regurgitation. There is mild tricuspid regurgitation. The right ventricular systolic pressure is estimated to be at least 24 mmHg based on an estimated right atrial pressure of 3 mm Hg. Procedure: A two-dimensional transthoracic echocardiogram with color flow and Doppler was performed. The study quality was technically adequate. There is no prior echocardiogram noted for this patient. A saline contrast injection was performed to assess for cardiac shunting. The injection was performed through an intravenous line in the left arm. The patient was in sinus rhythm with heart rates between 71-76 bpm during the exam. Left Ventricle: The left ventricle is normal in size and wall thickness. A false chord is noted (normal variant). The ejection fraction is estimated to be 60-65%. Left ventricular wall motion is normal. Right Ventricle: The right ventricle is normal size. Right ventricular systolic function is at the lower limits of normal. Atria: The left atrial size is normal. Right atrial size is normal. There is no Doppler evidence for an interatrial shunt. Injection of contrast documented no interatrial shunt. Mitral Valve: The mitral valve leaflets are mildly calcified. There is moderate mitral regurgitation. The mitral regurgitant jet is eccentrically directed. Aortic Valve: The aortic valve is trileaflet. The aortic valve opens well. There is no aortic valve stenosis. There is mild aortic regurgitation. Tricuspid Valve: The tricuspid valve is normal in structure and function. There is mild tricuspid regurgitation. The right ventricular systolic pressure is estimated to be at least 24 mmHg based on an estimated right atrial pressure of 3 mm Hg. Pulmonic Valve: The pulmonic valve leaflets are thin and pliable; valve motion is normal. There is trace pulmonic regurgitation. Great Vessels: The aortic root is normal size. The dimensions of the ascending aorta are normal. The IVC is of normal diameter and collapses greater than 50% with a sniff. This suggests a low right atrial pressure of 3 mm Hg. Pericardium/ Pleura There is no pericardial effusion. There is no pleural effusion. MMode/2D Measurements & Calculations LVIDd: 4.0 cm LVOT diam: 1.9 cm LVIDs: 2.4 cm Ao root diam: 2.9 cm FS: 40.2 % asc Aorta Diam: 3.3 cm IVSd: 0.74 cm Ao Arch Diam (Prox Trans): 2.2 cm LVPWd: 0.72 cm LV cano. diameter/BSA (cm/m^2): 2.3 LV sys. diameter/BSA (cm/m^2): 1.4 LA A2 area: 17.9 cm2 RA long axis: 4.7 cm LA A4 area: 17.5 cm2 RA area: 13.6 cm2 LA length (vol): 5.2 cm RA vol: 33.7 ml LA vol: 50.8 ml RA : 19.2 ml/m2 LA vol index: 29.0 ml/m2 IVC diam: 1.3 cm RVD1 (basal): 3.5 cm RVD2 (mid): 2.6 cm TAPSE: 1.6 cm Doppler Measurements & Calculations Ao V2 max: 171.0 cm/sec LVOT Max Jax: 118.3 cm/sec Ao V2 mean: 127.1 cm/sec LV V1 max P.6 mmHg Ao max P.7 mmHg LV V1 VTI: 28.2 cm Ao mean P.0 mmHg CYNTHIA(I,D): 2.0 cm2 Ao V2 VTI: 39.7 cm CYNTHIA(V,D): 1.9 cm2 sev ratio: 0.71 CYNTHIA indexed to BSA (cm^2/m^2): 1.1 MV E max jax: 78.4 cm/sec TR max jax: 229.5 cm/sec MV A max jax: 120.5 cm/sec TR max P.1 mmHg MV E/A: 0.65 PA V2 max: 87.4 cm/sec Med Peak E' Jax: 6.2 cm/sec PA V2 mean: 61.8 cm/sec E/E' med: 12.7 PA mean P.7 mmHg Lat Peak E' Jax: 8.8 cm/sec PA pr(Accel): 41.3 mmHg E/E' lat: 8.9 E/e' average: 10.8 MV dec time: 0.27 sec SV(LVOT): 79.3 ml Reading Physician:04:52 PM
--- NOTE | 2022-09-07 | DI.MRI.S_ITS ---
PROCEDURE: MR HEAD/BRAIN WO/W CON INDICATIONS: neuro deficit TECHNIQUE: Noncontrast axial T1 spin echo, axial T2 fast spin echo, sagittal and axial FLAIR, coronal T2 fast spin echo, axial gradient echo, axial diffusion and ADC through the brain. After the administration of contrast, axial and coronal and sagittal 3D VIBE or T1 spin echo with fat saturation through the brain. COMPARISON: [facility], MR, MR HEAD/BRAIN WO/W CON, 06/15/2022, 8:19. [facility], MR, MR STROKE, 11/04/2020, 14:59. FINDINGS: Image quality: Excellent. CSF Spaces: Basal cisterns are patent. No extra-axial fluid collections. Ventricles are normal in size and shape. Brain: No midline shift. No intracranial bleeds or masses. No abnormal intracranial enhancement. The brainstem appears normal. There are mild scattered areas of periventricular and subcortical white matter hyperintensities. Diffusion-weighted images demonstrate no acute ischemic insults. No chronic ischemic insults. Normal intravascular flow voids are present. Skull and face: Calvarial marrow is normal in signal. Orbits appear normal. Sinuses: Sinuses and mastoids appear clear. IMPRESSION: 1. No acute intracranial process. 2. No visualized acute ischemia. 3. Mild scattered areas of periventricular and subcortical white matter hyperintensities relatively unchanged compared to prior exam. These are overall nonspecific. These could represent early changes of chronic microvascular ischemia, demyelinating disease, migraine sequela or potentially vasculitis. Recommend clinical correlation. Dictated by: Barbara Mai M.D. on 09/07/2022 at 16:03 Approved by: Barbara Mai M.D. on 09/07/2022 at 16:05
--- NOTE | 2022-09-07 | DI.MRI.S_ITS ---
PROCEDURE: MR CERVICAL SPINE WO/W CON INDICATIONS: neuro sxs - MS? TECHNIQUE: Noncontrast sagittal T1 spin echo and T2 fast spin echo, sagittal STIR, foraminal oblique sagittal T2 fast spin echo, axial gradient echo or T2 fast spin echo through the cervical spine. After the administration of contrast, axial and sagittal T1 spin echo with fat saturation through the cervical spine. COMPARISON: [facility], MR, MR HEAD/BRAIN WO/W CON, 06/15/2022, 8:19. FINDINGS: Image quality: Motion is present throughout the exam, limiting areas of fine detail evaluation. Alignment and curvature: There is reversal cervical curvature with apex at C4-5. Marrow: Marrow is normal in overall signal, without suspicious enhancement. Spinal cord: Visualized spinal cord has normal size. There is a questionable appearance of intramedullary increased signal at the level of C4-5. However, it is not well seen on all sequences and prominent motion is present. There is no abnormal enhancement. No cerebellar tonsillar herniation. No abnormal intramedullary enhancement. Paraspinous soft tissues: No paravertebral masses or suspicious enhancement. Discs: Multilevel moderate to severe disc desiccation is present. C2-3: No disc bulge, spinal stenosis or foraminal narrowing. C3-4: Mild disc bulge with minimal spinal stenosis. Mild left foraminal narrowing with uncovertebral hypertrophy. C4-5: Mild disc bulge with effacement of the anterior thecal sac. Mild to moderate bilateral foraminal narrowing. C5-6: Mild disc bulge with moderate spinal stenosis. Moderate bilateral foraminal narrowing with uncovertebral hypertrophy. C6-7: No disc bulge or spinal stenosis. Minimal right foraminal narrowing. C7-T1: No disc bulge, spinal stenosis or foraminal narrowing. IMPRESSION: Multilevel degenerative changes. Heterogeneous appearance of intramedullary signal at the level of C4-5 not well characterized given motion on multiple sequences. This could represent artifact. However, follow-up attention to this region on subsequent imaging is recommended as true intramedullary signal cannot be excluded. This can be seen with demyelinating disease. Dictated by: Barbara Mai M.D. on 09/07/2022 at 16:06 Approved by: Barbara Mai M.D. on 09/07/2022 at 16:09
--- NOTE | 2022-09-07 08:56 | DI.CT.S_ITS ---
PROCEDURE: CT STROKE INDICATIONS: Ataxia TECHNIQUE: Noncontrast 4.5 mm thick angled axial sections acquired from the foramen magnum to the vertex, with coronal reformats. For radiation dose reduction, the following was used: automated exposure control, adjustment of mA and/or kV according to patient size. COMPARISON: [facility], CT, CT HEAD/BRAIN WO CON, 11/03/2020, 12:43. FINDINGS: Image quality: Excellent. CSF spaces: Basal cisterns are patent. No extra-axial fluid collections. Ventricles are normal in size and shape. Brain: No midline shift. No intracranial masses or hemorrhage. Daily-white matter interface is normal. Stable hyperdense focus involving the dura of the anterior falx cerebri. Skull and face: Calvarium and visualized facial bones are intact, without suspicious lesions. Sinuses: Visualized sinuses and mastoids are clear. IMPRESSION: CT head without acute intracranial abnormalities. No acute intracranial hemorrhage. No evidence for mass or mass effect. Findings were discussed with Dr. Jimenez at 0917 hrs. This study fulfills neurological imaging criteria for inclusion or exclusion of acute stroke therapies based on available published neurological imaging guidelines. Dictated by: Mark Rodgers M.D. on 09/07/2022 at 9:14 Approved by: Mark Rodgers M.D. on 09/07/2022 at 9:18
--- NOTE | 2022-09-07 08:56 | DI.CT.S_ITS ---
PROCEDURE: CT ANGIO HEAD AND NECK INDICATIONS: Ataxia TECHNIQUE: Pre-contrast 4.5 mm thick sections acquired from the foramen magnum to the vertex. After the administration of intravenous contrast, 1 mm thick sections acquired from the aortic arch through the [place] of [place]. Post-contrast 4.5 mm thick sections then re-acquired from the foramen magnum to the vertex. 3-dimensional xnzjtnp-lfwfdayqu-tfmqrtruaz (MIP) and/or volume rendering reformats were acquired of the central intracranial vasculature and neck separately. For radiation dose reduction, the following was used: automated exposure control, adjustment of mA and/or kV according to patient size. COMPARISON: [facility], CT, CT STROKE, 09/07/2022, 9:01. [facility], MR, MR HEAD/BRAIN WO/W CON, 06/15/2022, 8:19. [facility], MR, MR STROKE, 11/04/2020, 14:59. [facility], CT, CT HEAD/BRAIN WO CON, 11/03/2020, 12:43. [facility], CT, CT HEAD/BRAIN WO CON, 07/30/2020, 12:26. CT, CT HEAD/BRAIN WO CON, 05/20/2019, 7:36. FINDINGS: Image quality: Excellent. BRAIN: CSF spaces: Ventricles are normal in size and shape. Basal cisterns are patent. No extra-axial fluid collections. Brain: No midline shift. No intracranial bleeds. Enhancing mass along the anterior falx as previously identified and unchanged suspicious for meningioma. Daily-white matter interface appears intact. Skull and face: Calvarium and facial bones appear intact, without suspicious lesions. Orbits appear normal. Sinuses: Sinuses and mastoids are clear. HEAD CT ANGIOGRAPHY: Anterior circulation: Intracranial internal carotid arteries are normal in size and flow. The flow within the paired anterior cerebral arteries is normal and symmetric. The flow within the middle cerebral arteries is normal and symmetric. The anterior communicating artery is seen. No aneurysms are seen. Posterior circulation: Visualized portions of the vertebral arteries demonstrate normal caliber, and join to form a normal appearing basilar artery. Flow within the posterior cerebral arteries is normal and symmetric. No aneurysms are seen. NECK CT ANGIOGRAPHY: Carotid system: The great vessels demonstrate a conventional anatomy as they arise from the aortic arch. The origins of the common carotid arteries appear patent. The common carotid arteries demonstrate normal caliber and courses. The bifurcation regions are both widely patent. The internal carotid arteries demonstrate normal calibers and courses. Posterior circulation: The origins of the vertebral arteries both appear widely patent. The more superior extracranial portions of both vertebral arteries also demonstrate normal courses and calibers. They join to form a normal appearing basilar artery. Soft tissues: Visualized neck soft tissues demonstrate no suspicious abnormalities. Bones: No suspicious bony lesions. Visualized cervical spine appears normally aligned. IMPRESSION: 1. No acute intracranial process. 2. No areas of hemodynamically significant stenosis, vascular occlusion or aneurysmal dilation within the anterior circulation. 3. No areas of hemodynamically significant stenosis, vascular occlusion or aneurysmal dilation within the posterior circulation. 4. No areas of hemodynamically significant stenosis, vascular occlusion or aneurysmal dilation within the neck vasculature. 5. Enhancing falx mass suspicious for meningioma and unchanged. Any quantitative measurements of stenosis were performed using NASCET criteria. Dictated by: Barbara Mai M.D. on 09/07/2022 at 9:51 Approved by: Barbara Mai M.D. on 09/07/2022 at 10:00
--- NOTE | 2022-09-07 08:57 | ED_ITS ---
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 Complains of double vision but no headache. No numbness or tingling. But has bilateral arm and leg weakness. Also difficulty controlling her leg when trying to walk. Patient awoke this morning with no complaints. She drove to work and started feeling dizzy. When she arrived here she called for co-worker to help her into the hospital. She was placed on a stretcher/bed. When trying get up she fell, no injury she states. Denies any pain. Currently able to move all 4 limbs however requiring direction and encouragement. Denies any chest pain or headache. No slurred speech or facial droop. Recently being treated for UTI with Bactrim started yesterday. Patient has history of seizures and migraines but states this is not typical symptoms. She did recently switch neurologist, with [facility]. No new medications or changes. Denies any recent illness. She was seen here in May, for double vision. MRI brain was completed. Unremarkable results. Symptoms started at 7:45 a.m. this morning. Below are notes from June 19, 2022 ER visit HPI History of Present Illness HPI narrative: Patient is a 51-year-old female.? Does have a history of depression.? Also has a history of seizures.? Is on lamotrigine.? Is here for evaluation of double vision and balance issues.? She has had these exact same symptoms in the past but today is worse than normal.? She states that this is not how her seizures normally present.? She woke up this morning feeling fine in the symptoms started as the morning went on.? She did drive herself in.? She states that it is a blurry vision and also a double vision.? It seems to be both eyes but maybe left greater than right.? She has had the symptoms in the past.? She is seen her primary doctor.? She had an MRI at the end of last week for these symptoms.? She is scheduled to see a neurologist.? She states she gets the symptoms approximately 2 times a week.? They normally lasts for couple hours and then self resolved.? The symptoms this morning just worse than what they normally are.? She denies chest pain, palpitations, headache, sinus congestion, normal some tingling in her upper and lower extremities.? She is not tried anything for the symptoms.? She has been evaluated by an eye doctor and was told that these issues are not coming from her eyes. MDM Narrative Medical decision making narrative: Patient has had symptoms very similar to this in the past.? She is been seen by her primary doctor.? Had an MRI at the end of last week that was unremarkable.? She is also had a head CT in the past.? There is no signs of a mass.? The MRI a couple days ago was unremarkable.? No signs of MS/CVA.? She is also seen Ophthalmology and was told that there is no intrinsic eye pathology.? Her exam today is not consistent with a cranial nerve palsy/extraocular muscle impingement.? I do have some concern about a potential focal seizure.? She was given Ativan.? This seemed to improve/resolve her symptoms.? She is no fevers.? No trauma.? Will hold on further workup for now and have her contact both her primary doctor and also her neurologist for follow-up.? She expressed understanding and agreement. PROCEDURE:? MR HEAD/BRAIN WO/W CON ? INDICATIONS:? Unspecified visual disturbance ? TECHNIQUE:? Noncontrast axial T1 spin echo, axial T2 fast spin echo, sagittal and axial FLAI R, coronal T2 fast spin echo, axial gradient echo, axial diffusion and ADC through the brain.? After the administration of contrast, axial and coronal and sagittal 3D VIBE or T1 spin echo with fat saturation through the brain.? ? COMPARISON 11/04/2020 ? FINDINGS:? Image quality:? Excellent.? ? CSF Spaces:? Basal cisterns are patent.? No extra-axial fluid collections.? Ventricles are normal in size and shape.? ? Brain:? No midline shift.? No intracranial bleeds or masses.? No abnormal intracranial enhancement.? The brainstem appears normal.? Diffusion-weighted images demonstrate no acute ischemic insults.? No chronic ischemic insults.? Normal intravascular flow voids are present.? ? Skull and face:? Calvarial marrow is normal in signal.? Orbits appear normal.? ? Sinuses:? Sinuses and mastoids appear clear.? ? ? IMPRESSION:? No acute intracranial abnormality.? No significant change from pr evious exam. ? ? Dictated by: Je Freeman M.D. on 06/15/2022 at 13:27 ? ? Approved by: Je Freeman M.D. on 06/15/2022 at 13:29 ? On Anticoagulants: No Related Data Home Medications Medication Instructions Recorded Confirmed alprazolam 1 mg tablet 0.5 mg PO DAILY PRN Insomnia 03/17/20 09/07/22 lamotrigine 200 mg tablet 300 mg PO BID 03/17/20 09/07/22 citalopram 20 mg tablet 40 mg PO BEDTIME 07/30/20 09/07/22 melatonin 3 mg tablet 3 mg PO BEDTIME 09/07/22 09/07/22 Allergies Allergy/AdvReac Type Severity Reaction Status Date / Time Cephalosporins Allergy Verified 09/07/22 08:55 Penicillins Allergy Verified 09/07/22 08:55 cefotaxime AdvReac Unknown LIVER Verified 09/07/22 08:55 PROBLEM, JUANDICE Review of Systems Hematologic/Lymphatic On Anticoagulants: No Patient History Medical History Anxiety (~1994) Chicken pox (~1976) Depression (~1998) Irregular menstrual cycle Seizure disorder (~2009) Surgical History Anesthesia H/O congenital atrial septal defect (ASD) repair (~1992) History of section Hx of cholecystectomy (~1997) Family History Father Alcoholic hepatitis Mother Breast cancer Brother Hyperlipidemia Hypertension Sister Hypertension Grandfather Cancer Grandmother Cancer Hypertension Grandfather Dementia Grandmother No problems noted. Social History marital status: household members: spouse Smoking Status: Never smoker alcohol intake: current Smoking Status: Never smoker alcohol intake frequency: a few times a week Substance Use Type: does not use Exam Narrative Exam Narrative: GENERAL: in no distress, not toxic not dyspneic HEAD: Normocephalic. EYES: Pupils equal round ENT: Mucous membranes moist. NECK: Trachea midline. CARDIOVASCULAR: Regular rate and rhythm without murmurs RESPIRATORY: Clear to auscultation. Breath sounds equal bilaterally. No wheezes, rales, or rhonchi. GASTROINTESTINAL: Abdomen soft, non-tender EXTREMITIES: No gross deformities. BACK: No flank tenderness. NEURO: AOx4. Clear speech no facial droop light touch intact bilateral face h ands and legs strong equal fringe weaver. Patient able to lift both legs off the bed. Sustained for 5 seconds. Negative pronator drift. Alhpda-ag-[id number] intact bilaterally however on [id number] bilaterally is ataxic. It does improve with closing her eyes. SKIN: Warm and dry PSYCH: Not anxious, is cooperative Initial Vital Signs Initial Vital Signs: Vital Signs Pulse Rate 76 09/07/22 08:43 Blood Pressure 133/77 09/07/22 08:43 Pulse Oximetry 99 09/07/22 08:43 Scores NIH Stroke Scale Level of Conciousness: Alert, keenly responsive Ask month/age: Answers both questions correctly. Open/close eyes, close hand: Performs both tasks correctly Best gaze horizontal: Normal Visual burgos: No visual loss Facial palsy: Normal symetrical movement Left arm drift: No drift for full 10 sec Right arm drift: No drift for full 10 sec Left leg drift: No drift for full 5 sec Right leg drift: No drift for full 5 sec Limb ataxia: Present in two limbs Sensory on face/arms/legs: Normal, no sensory loss Best language: No aphasia, normal Dysarthria: Normal Extinction or inattention: No abnormality Total NIH Stroke scale score: 2 Course Orders Ordered: Discontinued Medications Acetaminophen (Acetaminophen 325 Mg Tablet) 650 mg PO Q6HR PRN PRN Reason: Fever/Mild Pain (1-3) Alprazolam (Alprazolam 0.5 Mg Tablet) 0.5 mg PO DAILY PRN PRN Reason: Insomnia Last Admin: 09/07/22 21:23 Dose: 0.5 mg Documented By: AW Aspirin (Aspirin 81 Mg Chew Tab) 324 mg PO NOW ONE Stop: 09/07/22 10:08 Last Admin: 09/07/22 10:13 Dose: 324 mg Documented By: SONNY Citalopram Hydrobromide (Citalopram 10 Mg Tablet) 40 mg PO BEDTIME CLAIRE Last Admin: 09/07/22 21:15 Dose: 40 mg Documented By: AW Sodium Chloride (Normal Saline 0.9%) 500 mls @ 1,000 mls/hr IV BOLUS ONE Stop: 09/07/22 09:51 Last Infusion: 09/07/22 10:13 Dose: 0 mls/hr Documented By: Admin: 09/07/22 09:39 Dose: 1,000 mls/hr Documented By: AMU Lamotrigine (Lamotrigine 100 Mg Tablet) 300 mg PO BID [facility] Last Admin: 09/08/22 09:21 Dose: 300 mg Documented By: Admin: 09/07/22 21:17 Dose: 300 mg Documented By: AW Lorazepam (Lorazepam 2 Mg/Ml Inj) 0.5 mg IV NOW ONE Stop: 09/07/22 09:30 Last Admin: 09/07/22 09:38 Dose: 0.5 mg Documented By: JACQUEU Melatonin (Melatonin 3 Mg Tablet) 3 mg PO BEDTIME [facility] Last Admin: 09/07/22 21:15 Dose: 3 mg Documented By: XENA Ondansetron HCl (Ondansetron 4 Mg/2 Ml Inj) 4 mg IV Q4HR PRN PRN Reason: Nausea And Vomiting Last Admin: 09/07/22 13:07 Dose: 4 mg Documented By: MM Vital Signs Vital signs: Vital Signs - 8 hr 09/07/22 08:50 09/07/22 08:43 09/07/22 08:43 Temperature 98.5 F Pulse Rate 82 76 Respiratory Rate 18 Blood Pressure 133/77 133/77 Pulse Oximetry 100 99 Oxygen Delivery Method Room Air 09/07/22 09:15 09/07/22 09:16 09/07/22 09:16 Temperature Pulse Rate 78 78 Respiratory Rate 14 Blood Pressure 132/78 Pulse Oximetry 95 99 Oxygen Delivery Method 09/07/22 09:21 09/07/22 09:21 09/07/22 09:30 Temperature Pulse Rate 80 Respiratory Rate 13 Blood Pressure 114/65 116/76 Pulse Oximetry 97 Oxygen Delivery Method Room Air 09/07/22 09:30 09/07/22 10:00 09/07/22 10:00 Temperature Pulse Rate 77 76 Respiratory Rate 15 16 Blood Pressure 128/70 Pulse Oximetry 95 97 Oxygen Delivery Method MDM - Neuro Symptoms/Deficit Lab Data 09/08/22 04:23 09/08/22 04:23 Labs: Lab Results 04/09/07/22 09/07/22 Range/Units 08:40 08:45 08:45 WBC 6.2 (4.5-11.0) X10^3/uL RBC 5.15 (4.0-5.2) X10^6/uL Hgb 15.7 (12.0-16.0) g/dL Hct 46.4 H (36-46) % MCV 90.0 (80-100) fL MCH 30.4 (26-34) PG MCHC 33.8 (30-36) % RDW 14.1 (11.6-14.8) % Plt Count 319 (150-400) X10^3/uL Neut % (Auto) 66.8 (50-75) % Lymph % (Auto) 20.7 L (25-40) % Benzie % (Auto) 9.5 (3-14) % Eos % (Auto) 2.4 (2-4) % Baso % (Auto) 0.6 (0-2) % Neut # (Auto) 4100 (1896-5026) /uL Lymph # (Auto) 1300 (2303-9986) /uL Benzie # (Auto) 600 (0-900) /uL Eos # (Auto) 100 (0-450) /uL Baso # (Auto) 0 (0-100) /uL PT 10.9 (10.1-12.7) SECONDS INR 1.0 (0.9-1.3) APTT 35 (26-36) SECONDS Sodium (137-145) mmol/L Potassium (3.4-5.1) mmol/L Chloride (98-107) mmol/L Carbon Dioxide (22-32) mmol/L BUN (7-17) mg/dL Creatinine (0.52-1.04) mg/dL Estimated GFR (>60) mL/min BUN/Creatinine Ratio (6-22) Glucose (70-100) mg/dL Calcium (8.4-10.2) mg/dL Total Bilirubin (0.2-1.3) mg/dL AST (14-36) IU/L ALT (<35) IU/L Alkaline Phosphatase (38-126) U/L Total Creatine Kinase (30-135) U/L CK-MB (CK-2) CK-MB (CK-2) Rel Index Troponin I (0.01-0.034) ng/mL Total Protein (6.3-8.2) g/dL Albumin (3.5-5.0) g/dL Globulin (1.7-4.1) g/dL Albumin/Globulin Ratio (1.0-2.8) SARS-CoV-2 (PCR) Negative (Negative) 09/07/22 Range/Units 08:45 WBC (4.5-11.0) X10^3/uL RBC (4.0-5.2) X10^6/uL Hgb (12.0-16.0) g/dL Hct (36-46) % MCV (80-100) fL MCH (26-34) PG MCHC (30-36) % RDW (11.6-14.8) % Plt Count (150-400) X10^3/uL Neut % (Auto) (50-75) % Lymph % (Auto) (25-40) % Benzie % (Auto) (3-14) % Eos % (Auto) (2-4) % Baso % (Auto) (0-2) % Neut # (Auto) (5607-7553) /uL Lymph # (Auto) (9896-0017) /uL Benzie # (Auto) (0-900) /uL Eos # (Auto) (0-450) /uL Baso # (Auto) (0-100) /uL PT (10.1-12.7) SECONDS INR (0.9-1.3) APTT (26-36) SECONDS Sodium 134 L (137-145) mmol/L Potassium 4.0 (3.4-5.1) mmol/L Chloride 100 (98-107) mmol/L Carbon Dioxide 26 (22-32) mmol/L BUN 14 (7-17) mg/dL Creatinine 0.98 (0.52-1.04) mg/dL Estimated GFR > 60 (>60) mL/min BUN/Creatinine Ratio 14.3 (6-22) Glucose 84 (70-100) mg/dL Calcium 9.4 (8.4-10.2) mg/dL Total Bilirubin 0.6 (0.2-1.3) mg/dL AST 27 (14-36) IU/L ALT 19 (<35) IU/L Alkaline Phosphatase 73 (38-126) U/L Total Creatine Kinase 82 (30-135) U/L CK-MB (CK-2) TNP CK-MB (CK-2) Rel Index TNP Troponin I < 0.012 (0.01-0.034) ng/mL Total Protein 7.4 (6.3-8.2) g/dL Albumin 4.4 (3.5-5.0) g/dL Globulin 3.0 (1.7-4.1) g/dL Albumin/Globulin Ratio 1.5 (1.0-2.8) SARS-CoV-2 (PCR) (Negative) Point of Care Testing Glucose POC 96 Urine Dip Bedside Urine Glucose Negative Bedside Urine Bilirubin - Negative Bedside Urine Ketone - Negative Urine Specific [place] 1 Bedside Urine Occult Blood - Negative Bedside Urine pH 8 Bedside Urine Protein - Negative Bedside Urine Urobilinogen - Negative Bedside Urine Nitrite - Negative Bedside Urine Leukocytes - Negative Esterase Imaging Data CT scan - head: Radiologist's Impression: PROCEDURE:? CT STROKE ? INDICATIONS:? Ataxia ? TECHNIQUE:? Noncontrast 4.5 mm thick angled axial sections acquired from the foramen magnum to the vertex, with coronal reformats.? For radiation dose reduction, the following was used:? automated exposure control, adjustment of mA and/or kV according to patient size.? ? COMPARISON:? [facility], CT, CT HEAD/BRAIN WO CON, 11/03/2020, 12:43. ? FINDINGS:? Image quality:? Excellent.? ? CSF spaces:? Basal cisterns are patent.? No extra-axial fluid collections.? Ventricles are normal in size and shape.? ? Brain:? No midline shift.? No intracranial masses or hemorrhage.? Daily-white matter interface is normal.? Stable hyperdense focus involving the dura of the anterior falx cerebri. ? Skull and face:? Calvarium and visualized facial bones are intact, without suspicious lesions.? ? Sinuses:? Visualized sinuses and mastoids are clear.? ? IMPRESSION:? CT head without acute intracranial abnormalities.? No acute intracranial hemorrhage.? No evidence for mass or mass effect. ? Findings were discussed with Dr. Jimenez at 0917 hrs. ? ? ? This study fulfills neurological imaging criteria for inclusion or exclusion of acute stroke therapies based on available published neurological imaging guidelines.? ? ? Dictated by: Mark Rodgers M.D. on 09/07/2022 at 9:14 ? ? Approved by: Mark Rodgers M.D. on 09/07/2022 at 9:18 ? CTA - brain/neck: Radiologist's Impression: PROCEDURE:? CT ANGIO HEAD AND NECK ? INDICATIONS:? Ataxia ? TECHNIQUE:? Pre-contrast 4.5 mm thick sections acquired from the foramen magnum to the vertex.? After the administration of intravenous contrast, 1 mm thick sections acquired from the aortic arch through the [place].? Post-contrast 4.5 mm thick sections then re- acquired from the foramen magnum to the vertex.? 3-dimensional maximum-intensity- projection (MIP) and/or volume rendering reformats were acquired of the central intracranial vasculature and neck separately. For radiation dose reduction, the following was used:? automated exposure control, adjustment of mA and/or kV according to patient size.? ? COMPARISON:? [facility], CT, CT STROKE, 09/07/2022, 9:01.? [facility], MR, MR HEAD/BRAIN WO/W CON, 06/15/2022, 8:19.? [facility], MR, MR STROKE, 11/04/2020, 14:59.? [facility], CT, CT HEAD/BRAIN WO CON, 11/03/2020, 12:43.? [facility], CT, CT HEAD/BRAIN WO CON, 07/30/2020, 12:26.? CT, CT HEAD/BRAIN WO CON, 05/20/2019, 7:36. ? FINDINGS:? Image quality:? Excellent.? ? BRAIN:? CSF spaces:? Ventricles are normal in size and shape.? Basal cisterns are patent.? No extra-axial fluid collections.? ? Brain:? No midline shift.? No intracranial bleeds.? Enhancing mass along the anterior falx as previously identified and unchanged suspicious for meningioma.? Daily- white matter interface appears intact.? ? Skull and face:? Calvarium and facial bones appear intact, without suspicious lesions.? Orbits appear normal.? ? Sinuses:? Sinuses and mastoids are clear.? ? HEAD CT ANGIOGRAPHY:? Anterior circulation:? Intracranial internal carotid arteries are normal in size and flow.? The flow within the paired anterior cerebral arteries is normal and symmetric.? The flow within the middle cerebral arteries is normal and symmetric.? The anterior communicating artery is seen.? No aneurysms are seen.? ? Posterior circulation:? Visualized portions of the vertebral arteries demonstrate normal caliber, and join to form a normal appearing basilar artery.? Flow within the posterior cerebral arteries is normal and symmetric.? No aneurysms are seen.? ? NECK CT ANGIOGRAPHY:? Carotid system:? The great vessels demonstrate a conventional anatomy as they arise from the aortic arch.? The origins of the common carotid arteries appear patent.? The common carotid arteries demonstrate normal caliber and courses.? The bifurcation regions are both widely patent.? The internal carotid arteries demonstrate normal calibers and courses.? ? Posterior circulation:? The origins of the vertebral arteries both appear widely patent.? The more superior extracranial portions of both vertebral arteries also demonstrate normal courses and calibers.? They join to form a normal appearing basilar artery.? ? Soft tissues:? Visualized neck soft tissues demonstrate no suspicious abnormalities.? ? Bones:? No suspicious bony lesions.? Visualized cervical spine appears normally aligned.? IMPRESSION:? ? 1. No acute intracranial process. 2. No areas of hemodynamically significant stenosis, vascular occlusion or aneurysmal dilation within the anterior circulation. 3. No areas of hemodynamically significant stenosis, vascular occlusion or aneurysmal dilation within the posterior circulation. 4. No areas of hemodynamically significant stenosis, vascular occlusion or aneurysmal dilation within the neck vasculature. 5.? Enhancing falx mass suspicious for meningioma and unchanged.? ? Any quantitative measurements of stenosis were performed using NASCET criteria.? ? ? Dictated by: Barbara Mai M.D. on 09/07/2022 at 9:51 ? ? Approved by: Barbara Mai M.D. on 09/07/2022 at 10:00 ? [facility] Narrative Medical decision making narrative: After history and exam code stroke activated. CBC CMP EKG troponin CT angiogram head and neck CT head ordered [facility] CC: Ataxia Complicating co-morbidities: History of seizures and migraine Data collected from: Patient and co-worker Medical records reviewed: MRI from June 15, 2022, ER notes from here June 19, 2022 Differential considered: Includes but not limited to seizure migraine TIA stroke MS Exam documented above, pertinent findings include: Ataxia bilateral legs Lab Test results independently reviewed as above. Pertinent findings: WBC 6.2 hemoglobin 15 hematocrit 46 platelets 319 sodium 134 potassium 4.0 calcium 9.4 glucose 84 troponin less than 0.012 Independently reviewed EKG as above sinus rhythm rate [address] elevation or depression. Incomplete right bundle-branch block present. Imaging studies independently reviewed: CT head and CT angiogram head and neck no acute process Consultations: 9:17 a.m. spoke with radiologist, his CT without contrast no acute process. 9:24 a.m. spoke with [facility] stroke team, Dr. Lion, at this time she states no tPA as low NIH score and at this time not debilitating, patient does move limbs with prompting. Does agree maybe try Ativan as this helped her last time in May. With repeat similar episode in May does not appear to be stroke however awaiting for CT angiogram artery to review the basilar artery 9:[address] Lion called back. She did reviewed the angiogram. No acute process. Recommends admission for balance workup for TIA. No tPA at this time. Recommends aspirin. 10:05 a.m.. Spoke with primary care on-call Dr Serna, he will admit patient. Will get MRI with and without contrast for head and spine as well as echocardiogram. Treatments: Normal saline aspirin Ativan Re-evaluations: 9:50 a.m.. Reviewed results with patient and . Her symptoms have completely resolved. She does agree for admission for balance workup of possible TIA versus MS. Ativan may have helped her symptoms she states Discussion: Appropriate for admission for balance workup include TIA and MS. Patient agrees with treatment plan. No tPA indicated this time. Symptoms have resolved. I did review with primary care on-call as well as Neurology. All parties have agreed for admission for MRI brain and spine with and without contrast and echocardiogram. Diagnosis: Ataxia Critical Care Time Critical Care Time Attestation: Critical Care Time 35 minutes: Critical care time is separate from other billable procedures. This critical care time includes consultation with family and other consulting doctors, review of records, and interpretation of data from labs, EKGs, imaging, etc. Discharge Plan Departure Patient Disposition: Admitted as Observation Clinical Impression: Ataxia Admit Date/Time: 09/07/22 10:35 Admit Provider: Km Serna
--- NOTE | 2022-09-07 09:00 | PC.NURSE ---
Stroke alert called at [id number]
[2022-09-07 09:10] LABS: Add Manual Diff / Slide Review NO; Basophils Absolute Auto 0 /uL (0-100); Basophils Percent Auto 0.6 % (0-2); Eosinophils Absolute Auto 100 /uL (0-450); Eosinophils Percent Auto 2.4 % (2-4); Hematocrit 46.4 % (36-46); Hemoglobin 15.7 g/dL (12.0-16.0); Lymphocytes Absolute Auto 1300 /uL (1100-4500); Lymphocytes Percent Auto 20.7 % (25-40); Mean Corpuscular HGB Conc 33.8 % (30-36); Mean Corpuscular Hemoglobin 30.4 PG (26-34); Monocytes Absolute Auto 600 /uL (0-900); Monocytes Percent Auto 9.5 % (3-14); Neutrophils Absolute Auto 4100 /uL (1500-7000); Neutrophils Percent Auto 66.8 % (50-75); Platelet Count 319 X10^3/uL (150-400); Red Blood Cell Count 5.15 X10^6/uL (4.0-5.2); Red Cell Distribution Width 14.1 % (11.6-14.8); White Blood Cell Count 6.2 X10^3/uL (4.5-11.0)
[2022-09-07 09:12] LABS: Prothrombin Time 10.9 SECONDS (10.1-12.7)
[2022-09-07 09:15] LABS: PTT Partial Thromboplastin Tim 35 SECONDS (26-36)
[2022-09-07 09:16] LABS: Alanine Aminotransferase 19 IU/L (<35); Albumin 4.4 g/dL (3.5-5.0); Albumin Globulin Ratio 1.5 (1.0-2.8); Alkaline Phosphatase 73 U/L (38-126); Aspartate Aminotransferase 27 IU/L (14-36); BUN Creatinine Ratio 14.3 (6-22); Bilirubin Total 0.6 mg/dL (0.2-1.3); Blood Urea Nitrogen 14 mg/dL (7-17); Calcium 9.4 mg/dL (8.4-10.2); Carbon Dioxide 26 mmol/L (22-32); Chloride 100 mmol/L (98-107); Creatine Kinase 82 U/L (30-135); Estimated Glomerular Filt Rate > 60 mL/min (>60); Glucose 84 mg/dL (70-100); HEMOLYSIS < 15 (0-50); Sodium 134 mmol/L (137-145); Total Protein 7.4 g/dL (6.3-8.2)
[2022-09-07 09:28] LABS: Troponin I < 0.012 ng/mL (0.01-0.034)
--- NOTE | 2022-09-07 09:30 | PC.NURSE ---
Pt reports double vision and vertigo. When asked to raise legs for NIH it takes several requests and a few moments for pt to raise her legs but then she is able to hold them steady in the air for the 10 seconds with no drift
[2022-09-07] MEDS: LORazepam 2 MG/ML INJ 0.5 MG IV (09:38)
[2022-09-07] MEDS: SODIUM CHLORIDE 0.9% 500 ML 1000 ML IV (09:39)
[2022-09-07 10:03] LABS: COVID19 -Nasal RAPID Negative (Negative)
--- NOTE | 2022-09-07 10:10 | PC.NURSE ---
Pt states the dizziness has improved to only being dizzy with head movement. Ataxia has resolved
[2022-09-07] MEDS: ASPIRIN 81 MG CHEW TAB 324 MG PO (10:13)
--- NOTE | 2022-09-07 10:34 | PM.HP.1 ---
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 She has had similar episodes previously - usually in the morning with the diplopia and confusion which resolves after resting for an hour- however this is the first time she started having also difficulty walking. Sent to ED where evaluation was reassuring and she improved with some time. On exam no she reports feeling mostly back to normal w/r/t confusion and diplopia however still feels kind of dizzy and is having some difficulty controlling lower limbs fluidly - NIHSS grossly wnl. head CT wnl, ED consulted with outside neuro who recommend no tPA but repeat MRI scan - consider doing spinal scans also to check for possible MS - also get echo for CVA workup. Of note she is on day 3 of bactrim for a UTI - symptoms are resolved reports she has not taken bactrim before. She does take mounjara for weight control however last dose was four days ago. She reports she did eat breakfast this morning. COUNTS INCLUDE 234 BEDS AT THE [facility] Medical History Anxiety (~1994) Chicken pox (~1976) Depression (~1998) Irregular menstrual cycle Seizure disorder (~2009) Surgical History Anesthesia H/O congenital atrial septal defect (ASD) repair (~1992) History of section Hx of cholecystectomy (~1997) Family History Father Alcoholic hepatitis Mother Breast cancer Brother Hyperlipidemia Hypertension Sister Hypertension Grandfather Cancer Grandmother Cancer Hypertension Grandfather Dementia Grandmother No problems noted. Social History marital status: Smoking Status: Never smoker alcohol intake: current Meds Home Medications and Allergies Home Medications Medication Instructions Recorded Confirmed Type alprazolam 1 mg tablet 0.5 mg PO DAILY PRN Insomnia 03/17/20 09/07/22 History lamotrigine 200 mg tablet 300 mg PO BID 03/17/20 09/07/22 History citalopram 20 mg tablet 40 mg PO BEDTIME 07/30/20 09/07/22 History melatonin 3 mg tablet 3 mg PO BEDTIME 09/07/22 09/07/22 History Allergies Allergy/AdvReac Type Severity Reaction Status Date / Time Cephalosporins Allergy Verified 09/07/22 08:55 Penicillins Allergy Verified 09/07/22 08:55 cefotaxime AdvReac Unknown LIVER Verified 09/07/22 08:55 PROBLEM, ADAN Review of Systems Review of Systems Narrative: all systems reviewed and normal except as otherwise documented in HPI Exam Vital Signs (past 8 hours): - 09/07/22 08:50 09/07/22 08:43 09/07/22 08:43 Temperature 98.5 F Pulse Rate 82 76 Respiratory Rate 18 Blood Pressure 133/77 133/77 Pulse Oximetry 100 99 Oxygen Delivery Method Room Air 09/07/22 09:15 09/07/22 09:16 09/07/22 09:16 Temperature Pulse Rate 78 78 Respiratory Rate 14 Blood Pressure 132/78 Pulse Oximetry 95 99 Oxygen Delivery Method 09/07/22 09:21 09/07/22 09:21 09/07/22 09:30 Temperature Pulse Rate 80 Respiratory Rate 13 Blood Pressure 114/65 116/76 Pulse Oximetry 97 Oxygen Delivery Method Room Air 09/07/22 09:30 09/07/22 10:00 09/07/22 10:00 Temperature Pulse Rate 77 76 Respiratory Rate 15 16 Blood Pressure 128/70 Pulse Oximetry 95 97 Oxygen Delivery Method Oxygen Delivery Method Room Air Narrative Exam Narrative: calm pleasant laying on gurney with family at bedside Const Nutritional Appearance: well nourished [facility] Head: normal to inspection, normocephalic and atraumatic Ears: hearing grossly normal bilaterally Eyes General: appearance normal, both eyes and all related structures Alignment and Position: alignment normal and position normal Resp Other: clear to auscultation bilaterally Cardio Other: regular rate and rhythm S1/S2 GI Other: soft nontender nondistended normal bowel sounds Neuro General: patient alert, patient awake, patient oriented x3, tone normal, moves all extremities and other (wobbly on her feet, heel-rubio intact but tentative) Extrem General: full ROM Psych Appearance: grossly normal Mental Status: mental status grossly normal Speech and Movement: speech clear Affect: normal affect Objective Labs 09/07/22 08:45 09/07/22 08:45 Labs: Laboratory Results - last 24 hr 09/07/22 09/07/22 09/07/22 08:40 08:45 08:45 WBC 6.2 RBC 5.15 Hgb 15.7 Hct 46.4 H MCV 90.0 MCH 30.4 MCHC 33.8 RDW 14.1 Plt Count 319 Neut % (Auto) 66.8 Lymph % (Auto) 20.7 L [place] % (Auto) 9.5 Eos % (Auto) 2.4 Baso % (Auto) 0.6 Neut # (Auto) 4100 Lymph # (Auto) 1300 [place] # (Auto) 600 Eos # (Auto) 100 Baso # (Auto) 0 PT 10.9 INR 1.0 APTT 35 Sodium Potassium Chloride Carbon Dioxide BUN Creatinine Estimated GFR BUN/Creatinine Ratio Glucose Calcium Total Bilirubin AST ALT Alkaline Phosphatase Total Creatine Kinase CK-MB (CK-2) CK-MB (CK-2) Rel Index Troponin I Total Protein Albumin Globulin Albumin/Globulin Ratio SARS-CoV-2 (PCR) Negative 09/07/22 08:45 WBC RBC Hgb Hct MCV MCH MCHC RDW Plt Count Neut % (Auto) Lymph % (Auto) [place] % (Auto) Eos % (Auto) Baso % (Auto) Neut # (Auto) Lymph # (Auto) [place] # (Auto) Eos # (Auto) Baso # (Auto) PT INR APTT Sodium 134 L Potassium 4.0 Chloride 100 Carbon Dioxide 26 BUN 14 Creatinine 0.98 Estimated GFR > 60 BUN/Creatinine Ratio 14.3 Glucose 84 Calcium 9.4 Total Bilirubin 0.6 AST 27 ALT 19 Alkaline Phosphatase 73 Total Creatine Kinase 82 CK-MB (CK-2) TNP CK-MB (CK-2) Rel Index TNP Troponin I < 0.012 Total Protein 7.4 Albumin 4.4 Globulin 3.0 Albumin/Globulin Ratio 1.5 SARS-CoV-2 (PCR) Assessment & Plan Assessment & Plan narrative: #TIA/CVA symptoms - neurological dysfunction/ataxia - gait disturbance Agree with expanding differential and considering possible MS - pt reports no response to temperatures but this is a consistently morning issue for her otherwise triggers not immediately evident reassuring exam on admission but still having some coordination issues in her legs - getting MR and echo - may need to get spinal series as outpatient time permitting #MDD stable continue home SSRI and lamotrigine #recent UTI day three of treatment, improved already, no dysuria, will hold Bactrim in case there is a reaction afoot code: full MDM: [phone] diet: general PCP: Darell dispo: admit obsv for stroke workup may need to complete spinal series as outpt for MS workup
[2022-09-07] MEDS: ONDANSETRON 4 MG/2 ML INJ IV (13:07)
[2022-09-07] MEDS: CITALOPRAM 10 MG TABLET 40 MG PO (21:15)
[2022-09-07] MEDS: MELATONIN 3 MG TABLET PO (21:15)
[2022-09-07] MEDS: lamoTRIgine 100 MG TABLET 300 MG PO (21:17)
[2022-09-07] MEDS: ALPRAZolam 0.5 MG TABLET PO (21:23)
[2022-09-08] VITALS: BP 98/59; PULSE 71; RESP 16; TEMP 36.7; O2SAT 95
[2022-09-08 04:00] VITALS: BP 104/64; PULSE 78; RESP 16; TEMP 36.3; O2SAT 95
[2022-09-08 04:54] LABS: Add Manual Diff / Slide Review NO; Basophils Absolute Auto 0 /uL (0-100); Basophils Percent Auto 0.5 % (0-2); Eosinophils Absolute Auto 300 /uL (0-450); Eosinophils Percent Auto 4.6 % (2-4); Hematocrit 44.8 % (36-46); Hemoglobin 14.9 g/dL (12.0-16.0); Lymphocytes Absolute Auto 1400 /uL (1100-4500); Lymphocytes Percent Auto 22.2 % (25-40); Mean Corpuscular HGB Conc 33.2 % (30-36); Mean Corpuscular Hemoglobin 30.2 PG (26-34); Monocytes Absolute Auto 600 /uL (0-900); Monocytes Percent Auto 9.7 % (3-14); Neutrophils Absolute Auto 4000 /uL (1500-7000); Platelet Count 335 X10^3/uL (150-400); Red Blood Cell Count 4.93 X10^6/uL (4.0-5.2); White Blood Cell Count 6.4 X10^3/uL (4.5-11.0)
[2022-09-08 05:05] LABS: Alanine Aminotransferase 16 IU/L (<35); Albumin 3.8 g/dL (3.5-5.0); Albumin Globulin Ratio 1.4 (1.0-2.8); Alkaline Phosphatase 65 U/L (38-126); Aspartate Aminotransferase 21 IU/L (14-36); Bilirubin Total 0.2 mg/dL (0.2-1.3); Blood Urea Nitrogen 16 mg/dL (7-17); Calcium 8.5 mg/dL (8.4-10.2); Carbon Dioxide 27 mmol/L (22-32); Chloride 104 mmol/L (98-107); Estimated Glomerular Filt Rate > 60 mL/min (>60); Globulin 2.7 g/dL (1.7-4.1); Glucose 90 mg/dL (70-100); HEMOLYSIS 17 (0-50); Potassium 4.1 mmol/L (3.4-5.1); Sodium 137 mmol/L (137-145); Total Protein 6.5 g/dL (6.3-8.2)
[2022-09-08 07:00] VITALS: BP 106/71; PULSE 72; RESP 17; TEMP 36.2; O2SAT 100
--- NOTE | 2022-09-08 08:49 | PC.NURSE ---
Addendum entered by Ivan Gomez R.N. 09/08/22 18:29: Second MRI completed. Awaiting results. Pt would like to go home as soon as results are known. Dr. Serna aware. Addendum entered by Ivan Gomez R.N. 09/08/22 11:02: Called to room. Pt concerned she is having another episode. Blurry vision, seeing double, fuzzy mouth. Eyes JENNIFER. Follows commands. Complains also of feet and legs twitching. Arms twitching. VS's a bit higher but lower than admit. attentive at bedside. Dr. Acuña notified of concerns by this RN and is now in the room seeing Pt and discussing concerns. Original Note: Pt alert and oriented, offers no overt c/o presently. Good family support. attentive at bedside. Plan for another MRI this afternoon.
[2022-09-08] MEDS: lamoTRIgine 100 MG TABLET 300 MG PO (09:21)
--- NOTE | 2022-09-08 09:52 | PT.IIE ---
Surgical History (Last Reviewed 11/04/20 @ 16:24 by Viviana Curtis MD) Anesthesia H/O congenital atrial septal defect (ASD) repair (~1992) History of section Hx of cholecystectomy (~1997) Medical History (Last Reviewed 06/19/22 @ 09:42 by Darrick Boyd DO) Anxiety (~1994) Chicken pox (~1976) Depression (~1998) Irregular menstrual cycle Seizure disorder (~2009) Physical Therapy Inpatient Evaluation/Re-Eval M1 PT/OT-IP Prior Functional Status Start: 09/08/22 09:38 Freq: Status: Active Protocol: Document 09/08/22 09:38 BC (Rec: 09/08/22 09:52 [id number]) Medical Review Prior Functional Status Medical History Reviewed Yes Diet/Fluid Consistency Regular Communication Independent Mobility and Gait Independent Activities of Daily Living and IADL's Independent Prior Functional Level (Other details) 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 Works out at gym in mornings usually 3-4x/ week. Strength training and cardio. 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 Supportive spouse and sister present throughout eval. M2 PT-IP Current Condition Start: 09/08/22 09:38 Freq: Status: Active Protocol: Document 09/08/22 09:38 BC (Rec: 09/08/22 09:52 [id number]) Physical Therapy Current Condition Current Condition Evaluation Date 09/08/22 Treatment Diagnosis impaired balance, difficulty with ambulation Onset Date 09/07/22 M3 PT-IP Subjective Start: 09/08/22 09:38 Freq: Status: Active Protocol: Document 09/08/22 09:38 BC (Rec: 09/08/22 09:52 [id number]) Subjective Physical Therapy Visit Type Type Initial Evaluation Visit Start Time 08:50 Visit Stop Time 09:20 Total Visit Minutes 29 Physical Therapy Visit Comments Patient Comments Reports feeling back to almost 100% Patient Goals To identify cause of her symptoms Therapy Pain Assessment Pain When Pain Assessed At Rest Pain Present Pain Present Denied Pain M4 PT-IP Mobility and Gait Start: 09/08/22 09:38 Freq: Status: Active Protocol: Document 09/08/22 09:38 BC (Rec: 09/08/22 09:52 [id number]) PT-Bed Mobility Assessment Rolling Type of Rolling Bilateral Level of Assist Independent Supine to Sit Supine to Sit Independent Sit to Supine Sit to Supine Independent Scooting Scooting to Edge of Bed Independent Scooting Up and Down in Bed Independent PT-Transfer Assessment Sit to and From Stand Sit to and from Stand Independent Equipment Transfer Assistive Device None Transfers Transfer Destination Bed,Toilet Transfer Technique Stand Pivot Transfer Ability Level of Assist Independent Gait Assessment Gait Gait Assistance Required: Independent Distance (Feet) 150 Assistive Devices Assistive Device None,Gait Belt Comments Gait Comments Slight listing to right when ambulating and dual task challenges introduced PT-Balance Assessment Sitting Balance and Reactions Static Sitting Balance Ability Normal Dynamic Sitting Balance Ability Normal Standing Balance and Reactions Static Standing Balance Ability Normal Dynamic Standing Balance Ability Normal Functional Assessments Functional Tests Tinetti Balance and Gait Assessment /28 Dynamic Gait Index 4 item DGI 04/30 Other Functional Tests Performed Walking eyes closed, backward walking - WNL M5 PT-IP Objective Assessments Start: 09/08/22 09:38 Freq: Status: Active Protocol: Document 09/08/22 09:38 (Rec: 09/08/22 09:52 [id number]) Orientation Orientation/Cognition Level of Alertness Alert Orientation Name,Age,Birthday,Month,Date, Year,Day of Week,Place, Situation Language Function Ability No Deficits Noted Safety Awareness Understands Safety Issues Memory Description No Deficits Noted Gross Range of Motion Upper Extremity ROM Assessment Within Functional Limits Lower Extremity ROM Assessment Within Functional Limits Strength Upper Extremity Strength Assessment Within Functional Limits Lower Extremity Strength Assessment Within Functional Limits Comments Strength Comments MMT all UE/LE joints all planes are 5/5 throughout. Coordination Assessment Assessment Finger to Nose Test Minimal Impairment Pronation/Supination Test Normal Performance Foot Tapping Test Normal Performance Heel on Rubio Test Minimal Impairment Coordination Comments Slightly reduced speed/ accuracy LLE/LUE on finger to nose and heel to rubio. Pt is R hand dominant. Sensation Assessment Sensation Gross Sensation WNL Light Touch Intact Proprioception (Position) Intact Comments Sensation Comments Intact UE/LE proprioceptive testing. Denies any numbness/ sensory changes. Muscle Tone Muscle Tone WNL Yes Other Assessments Other Other Assessments 3+ bilateral patellar and achilles reflexes - Pt states she has always had brisk reflexes. Oculomotor: smooth pursuit, saccades and convergence appear WNL Vestibular: negative gaze/ resting evoked nystagmus, WNL head impulse test M6 PT-IP Treatment Start: 09/08/22 09:38 Freq: Status: Active Protocol: Document 09/08/22 09:38 BC (Rec: 09/08/22 09:52 [id number]) Physical Therapy Treatment Education Education Provided Safety Other Treatments Other Treatment Performed - Coordination tasks - Home safety needs reviewed - Opthamology vs Optometry M7 PT-IP Assessment and Plan Start: 09/08/22 09:38 Freq: Status: Active Protocol: Document 09/08/22 09:38 BC (Rec: 09/08/22 09:52 [id number]) PT Summary Assessment and Plan Potential Rehabilitation Potential Excellent Status of Condition at Evaluation Stable Summary Assessment Summary Pt admitted when she arrived to work due to double vision and difficulty walking. She endorses double vision intermittently for ~1 year. She states this was her first experience with LE weakness. She describes it as inability to move her legs in coordination fashion, duck walking, needing assist of 2 of her co-workers to get out of her car. PLOF is fully independent and working. She is very athletic and works out several times a week. CLOF: Pt is reporting an ~100% return of vision and motor function. States she just feels slight listing when walking. Balance testing is low fall risk. Strength is grossly intact. Slight coordination difference in LUE /LLE vs R side. Noted hyperreflexia. Further medical imaging is planned. No IPPT needs at this time as Pt is functioning at a safe level to d/c home. If a confirmed neuro diagnosis is identified while hospitalized, consider OPPT. This would be especially beneficial if there is an MS diagnosis. Current research recommends PT assessment/ education at onset of MS diagnosis. Frequency of Treatment Frequency Of Treatment Discharge Treatment Plan Other Recommendations and Next Treatment Safe to discharge home. No Focus further skilled PT needs. Recommendations To Nursing Amount of Assist Needed Independent,Standby Assistance Discharge Recommendations PT Discharge Recommendations Home Transportation Needs at Discharge Private Vehicle
[2022-09-08 10:45] VITALS: BP 128/84; PULSE 75; RESP 17; TEMP 36.7; O2SAT 97
--- NOTE | 2022-09-08 11:13 | CM.DANOTE ---
DCP: Case received, EMR reviewed and met with patient, spouse and family at bedside. Introduced self and role. Was able to obtain informatin regarding patient's baseline activity level prior to hospitalization. DCP assessment completed with information currently available. Patient is a 52 year old female who admitted yesterday evening to the care of the hospitalist team. PCP: Dr. Lozoya. Payer: confirmed: [employer]. Patient came to the hospital via private vehicle secondary to having difficulty walking. Patient had been on her way to work, she is employed at [employer]. Patient had been complaining of double vision, and complaints of not being able to control her legs when she walks. Patient has history of depression and seizures, as well. Notes indicate patient has had these symptoms in the past, and is scheduled to see a neurologist. Notes indicate that patient has currently been on Bactrim for a UTI. Patient here for a work up, MTI, for TIA symptoms. She will also be working with therapy. Met with patient in her room. Patient had spouse and family members in the room. 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 Confirmed that her and her spouse both reside here in [place]. P: DCP to continue to follow. She will be having tests while here in the hospital. She did work with P.T. already. Plan is home when deemed medically stable. Zohreh Ulloa RN/Esl Tutor Discharge Planning/Care Management CM Discharge Assessment Start: 09/08/22 11:12 Freq: Status: Active Protocol: Document 09/08/22 11:12 (Rec: 09/08/22 11:13 [id number]) Discharge Planning Assessment Assigned Hazard Mitigation Officer Zohreh Ulloa RN/Esl Tutor Advance Directives? No History Provided By Patient,Medical Record Prior Living Arrangements House Household Members spouse Type of transporation used prior to Drives own vehicle admit Independent with ADL's Yes Is patient alert and oriented? Yes Caregiver for Another No Barriers to Discharge No Discharge Plan Home Transportation Arrangement Spouse Referrals Initiated None needed Whiteboard Updated in Patient Room with Yes name and ext. # of Hazard Mitigation Officer Review Status In Process Next Review Type Continued Stay Review
--- NOTE | 2022-09-08 11:59 | P.PN_ITS ---
Subjective Subjective Date Patient Seen: 09/08/22 Time Patient Seen: 12:02 Interval history: Patient's diagnosis or least presenting symptoms reviewed from the chart. Patient was actively having symptoms when I saw her this morning. She is complaining mostly of diplopia which per her and her spouse is with her here today is been happening on a daily basis for the last week plus. Generally last for about an hour then resolves. She sometimes gets a sense of dizziness maybe related to the visual disturbance which makes her really feel uncomfortable she does better with her eyes closed. Yesterday she had difficulty with balance coordination and her feet felt very strange and odd which is why she presented to the emergency department. This is been happening in the morning consistently happened at work yesterday has not happened in the afternoon or evening whatsoever. Does not wake up with this happens after she is up and around for some time. Does have a history of what sounds like both a partial as well as generalized seizure disorder well controlled and seen by Neurology recently focused on the seizure disorder not felt to be an active issue Thus far she is had imaging of her brain with an MRI as well as cervical spine that are basically unremarkable. Given some motion artifact can not rule out completely demyelinating disease Patient has had CT angiography of the head and neck that was unremarkable Vital signs have been stable through all of this Per input from tele stroke Neurology planning for further MRI of the thoracic and lumbar spine looking for demyelinating disease (multiple sclerosis) Exam Vital Signs (past 8 hours): - 09/08/22 04:00 09/08/22 07:00 09/08/22 10:45 Temperature 97.4 F L 97.1 F L 98.1 F Pulse Rate 78 72 75 Respiratory Rate 16 17 17 Blood Pressure 104/64 106/71 128/84 Pulse Oximetry 95 100 97 Oxygen Flow Rate 0 0 Oxygen Delivery Method Room Air Oxygen Flow Rate 0 Narrative Exam Narrative: HEENT-normocephalic atraumatic PERRLA EOMs appear to be intact although she has diplopia with lateral/horizontal gaze not with vertical changes in gaze. I can not detect any ocular motion abnormality however. Lungs-clear with good breath sounds Heart-regular rate and rhythm no murmur Neuro-Muscle strength 5/5 upper and lower extremities although gait not tested. No abnormal reflexes no cerebellar signs. No detectable cranial nerve defects except as above with gaze Objective Labs 09/08/22 04:23 09/08/22 04:23 Labs: Laboratory Results - last 24 hr 09/08/22 09/08/22 04:23 04:23 WBC 6.4 RBC 4.93 Hgb 14.9 Hct 44.8 MCV 91.0 MCH 30.2 MCHC 33.2 RDW 14.0 Plt Count 335 Neut % (Auto) 63.0 Lymph % (Auto) 22.2 L [place] % (Auto) 9.7 Eos % (Auto) 4.6 H Baso % (Auto) 0.5 Neut # (Auto) 4000 Lymph # (Auto) 1400 [place] # (Auto) 600 Eos # (Auto) 300 Baso # (Auto) 0 Sodium 137 Potassium 4.1 Chloride 104 Carbon Dioxide 27 BUN 16 Creatinine 1.00 Estimated GFR > 60 BUN/Creatinine Ratio 16.0 Glucose 90 Calcium 8.5 Total Bilirubin 0.2 AST 21 ALT 16 Alkaline Phosphatase 65 Total Protein 6.5 Albumin 3.8 Globulin 2.7 Albumin/Globulin Ratio 1.4 PFSH Medical History Anxiety (~1994) Chicken pox (~1976) Depression (~1998) Irregular menstrual cycle Seizure disorder (~2009) Surgical History Anesthesia H/O congenital atrial septal defect (ASD) repair (~1992) History of section Hx of cholecystectomy (~1997) Family History Father Alcoholic hepatitis Mother Breast cancer Brother Hyperlipidemia Hypertension Sister Hypertension Grandfather Cancer Grandmother Cancer Hypertension Grandfather Dementia Grandmother No problems noted. Social History marital status: household members: spouse Smoking Status: Never smoker alcohol intake: current Assessment & Plan Assessment & Plan narrative: Patient with prominent neurologic symptoms consisting mostly of diplopia at times that resolve over the course of an hour so but happening on a regular basis at this point. She is had other symptoms including some vague dizziness a s well as sensory end or perhaps motor symptoms in her lower extremity/feet. Thus far imaging is been completely unremarkable maybe a hint of some evidence of demyelinating disease on cervical spine MRI although motion artifact maybe the culprit rather than actual finding. I wonder about possible myasthenia gravis as a source of symptoms. I will go ahead as long she is here in the hospital in send labs for acetylcholine receptor antibodies as well as MuSK antibodies. I know this will probably take 7-14 days to get results. I think it is worth keeping her here in the hospital to obtain any imaging as above to complete her evaluation for evidence of multiple sclerosis However if there is no significant unexpected findings on her spine imaging she can probably be discharged home later today. At this point we do not have a specific diagnosis but I think we have ruled out vascular cause of her neurologic symptoms and need to focus on probably multiple sclerosis verses myasthenia gravis. I doubt that her seizure disorder has any bearing on her current symptoms although I suppose can not be 100% sure about this. I think ultimately what she needs is a outpatient neurological evaluation. She may need lumbar puncture looking for evidence of multiple sclerosis or may need further testing to confirm or rule out diagnosis of myasthenia gravis etcetera Discussed at length with patient and her spouse. Will plan to likely discharge her later today Quality VTE Deep Vein Thrombosis/Pulmonary Embolism Present on Admission: No
[2022-09-08 12:47] LABS: Prolactin 19.4 ng/mL (3.0-18.6)
[2022-09-08 15:39] VITALS: BP 101/63; PULSE 72; RESP 17; TEMP 36.3; O2SAT 97
--- NOTE | 2022-09-08 18:55 | PM.DS.1 ---
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 She does have distant hx of seizure and is compliant with antiseizure meds seen recently by Neuro. She has been having similar episodes with increasing frequency over the last few months - generally in the morning with the diplopia and confusion which resolves after resting for an hour - first episode was 12 months ago, however lately this has been happening every morning for the last week- however this is the first time she started having also difficulty walking. Sent to ED where evaluation was reassuring and she improved with some time. Head CT wnl, ED consulted with outside neuro who recommend no tPA but repeat MRI scan with spinal scans also to check for possible MS and also get echo for CVA workup. Of note she is on day 3 of bactrim for a UTI - symptoms are resolved reports she has not taken bactrim before. She does take mounjaro for weight control however last dose was four days TIMBER HEWER and she did eat breakfast on morning of admission. Patient's diagnosis or least presenting symptoms reviewed from the chart.? Patient was actively having symptoms when I saw her this morning.? She is complaining mostly of diplopia which per her and her spouse is with her here today is been happening on a daily basis for the last week plus.? Generally last for about an hour then resolves.? She sometimes gets a sense of dizziness maybe related to the visual disturbance which makes her really feel uncomfortable she does better with her eyes closed.? Yesterday she had difficulty with balance coordination and her feet felt very strange and odd which is why she presented to the emergency department.? This is been happening in the morning consistently happened at work yesterday has not happened in the afternoon or evening whatsoever.? Does not wake up with this happens after she is up and around for some time.? Discharge Providers Provider Date of admission: 09/07/22 10:35 Discharge Date: 09/08/22 Primary care physician: Rainer Lozoya MD Consults: 09/07/22 17:50 Consult to Occupational Therapy Evaluate & Treat Comment: Physician Instructions: Evaluate and treat Consult to Physical Therapy Evaluate & Treat Comment: Physician Instructions: Evaluate and Treat Discharge provider: Km Serna MD Summary Hospital Course Discharge Diagnosis: #CVA/TIA ruleout #possible Multiple sclerosis vs myasthenia gravis vs seizure disorder #ataxia #diplopia #altered mental status Hospital Course: CTA head/neck and Echo was essentially wnl and MRI images were obtained. She had another episode this morning witnessed by Dr. Acuña which self resolved within an hour or two. She passed a PT evaluation no problem. MRI c-spine had some motion artifact- other spinal reads are pending. The question was raised for the possibility of MG given her presentation - [facility] and [facility] labs were drawn and will likely take some time to result. Discussed options with her she would prefer to go home and follow this up as an outpatient. I advised her probably good to stay home from work until this is not happening every day. Status at Discharge Cognitive/behavioral status at discharge: at baseline, oriented Functional status at discharge: independent ambulation Overall status at discharge: patient is back to baseline Exam Vital Signs (past 8 hours): - 09/08/22 15:39 Temperature 97.3 F L Pulse Rate 72 Respiratory Rate 17 Blood Pressure 101/63 Pulse Oximetry 97 Oxygen Flow Rate 0 Oxygen Delivery Method Room Air Oxygen Flow Rate 0 Narrative Exam Narrative: cheerful alert laying in bed Const General: healthy appearing, comfortable and well developed [facility] Head: normal to inspection, normocephalic and atraumatic Eyes Other: EOMI today, vision intact with glasses on Resp Other: CTAB moving air well Cardio Other: regular rate and rhythm, S1/S2 GI Other: soft nontender nondistended Neuro General: patient awake, patient oriented x3, tone normal and moves all extremities Cognition: normal cognition Speech: speech normal Motor: muscle tone normal throughout and strength 5/5 throughout Extrem General: full ROM and no pedal edema Psych Appearance: grossly normal Mental Status: mental status grossly normal Speech and Movement: speech and movement normal Objective Labs 09/08/22 04:23 09/08/22 04:23 Labs: Laboratory Results - last 24 hr 09/08/22 09/08/22 09/08/22 04:23 04:23 04:23 WBC 6.4 RBC 4.93 Hgb 14.9 Hct 44.8 MCV 91.0 MCH 30.2 MCHC 33.2 RDW 14.0 Plt Count 335 Neut % (Auto) 63.0 Lymph % (Auto) 22.2 L [place] % (Auto) 9.7 Eos % (Auto) 4.6 H Baso % (Auto) 0.5 Neut # (Auto) 4000 Lymph # (Auto) 1400 Gilpin # (Auto) 600 Eos # (Auto) 300 Baso # (Auto) 0 Sodium 137 Potassium 4.1 Chloride 104 Carbon Dioxide 27 BUN 16 Creatinine 1.00 Estimated GFR > 60 BUN/Creatinine Ratio 16.0 Glucose 90 Calcium 8.5 Total Bilirubin 0.2 AST 21 ALT 16 Alkaline Phosphatase 65 Total Protein 6.5 Albumin 3.8 Globulin 2.7 Albumin/Globulin Ratio 1.4 Prolactin 19.4 H [facility] Medical History Anxiety (~1994) Chicken pox (~1976) Depression (~1998) Irregular menstrual cycle Seizure disorder (~2009) Surgical History Anesthesia H/O congenital atrial septal defect (ASD) repair (~1992) History of section Hx of cholecystectomy (~1997) Family History Father Alcoholic hepatitis Mother Breast cancer Brother Hyperlipidemia Hypertension Sister Hypertension Grandfather Cancer Grandmother Cancer Hypertension Grandfather Dementia Grandmother No problems noted. Social History marital status: household members: spouse Smoking Status: Never smoker alcohol intake: current Discharge Assessment & Plan Assessment and Plan Plan of Treatment: #CVA/TIA r/o #ataxia/diplopia/confusion, transient, present on admission, MS vs MG vs seizure vs ??? -Actual etiology here still unclear but does not appear to be suited to acute intervention at this time -Patient with prominent neurologic symptoms consisting mostly of diplopia at times that resolve over the course of an hour so but happening on a regular basis at this point.? She is had other symptoms including some vague dizziness as well as sensory end or perhaps motor symptoms in her lower extremity/feet.? She does agree that increasing fatiguability is more noticeable lately. -Thus far imaging is been completely unremarkable maybe a hint of some evidence of demyelinating disease on cervical spine MRI although motion artifact maybe the culprit rather than actual finding.? MG labs are sent out will take a while to result. -Advised she continue to hold mounjaro for a couple weeks, stop bactrim as uti appears adequately treated, she agreed dispo: discharge home to continue workup as outpatient with PCP and neuro PCP: Darell diet: regular Discharge Plan Discharge Plan Patient Disposition: Home Discharge orders & Medications Prescriptions: Continued lamotrigine 200 mg tablet 300 mg PO BID alprazolam 1 mg tablet 0.5 mg PO DAILY PRN (Reason: Insomnia) citalopram 20 mg tablet 40 mg PO BEDTIME melatonin 3 mg Tablet 3 mg PO BEDTIME Follow up/Referrals: Rainer Lozoya MD [Primary Care Provider] - 1 Week Discharge Health Status Multidrug resistant organism: No MDRO Diet/Activity/Treatments Diet: Diet as Tolerated Visit Report/Discharge Packet Stand Alone Forms: Patient Portal/API, Stroke Signs & Symptoms Discharge Data Primary Care Provider: Rainer Lozoya Attending Provider: Km Serna Admjohanna Date/Time: 09/07/22 10:35 Quality VTE Deep Vein Thrombosis/Pulmonary Embolism Present on Admission: No
--- NOTE | 2022-09-08 19:33 | PC.NURSE ---
Pt discharge via wheelchair, discharge instructions given and explain.
[2022-09-16 12:11] LABS: MuSK Antibodies <1.0 U/mL (.)
[2022-09-17 13:34] LABS: Acetylcholine Receptor Bind AB <0.03 nmol/L (0.00-0.24)
== END 2022-09-08 19:35 | disposition home or self-care (01) ==
LOC: ED 10:11 → AC 10:35
PROVIDERS: Internal Medicine; Admitting Provider Family Medicine; Emergency Provider Emergency Medicine; PCP Family Medicine; Referring Provider Emergency Medicine; Visit Provider Family Medicine
DX: H53.2 Diplopia (principal); R27.0 Ataxia, unspecified; R29.702 NIHSS score 2; N39.0 Urinary tract infection, site not specified; B96.89 Other specified bacterial agents as the cause of diseases classified elsewhere; G40.909 Epilepsy, unspecified, not intractable, without status epilepticus; Z20.822 Contact with and (suspected) exposure to COVID-19
CPT/HCPCS: 36415; 70450; 70496; 70498; 70553; 72156; 72157; 72158; 80053; 81003; 82550; 82962; 83519; 84146; 84484; 85025; 85610; 85730; 87635; 93005; 93010; 93306; 96361; 96374; 96375; 97162; 97530; 99238; 99285; C9803; G0378; A9579; J2060; J2405; Q9967

== ENCOUNTER → 2023-03-28 12:04 | Outpatient (CLI) | payer OTHER, SELFPAY ==
[2022-09-07 11:04] VITALS: BMI 25.0
--- NOTE | 2023-03-28 12:05 | DI.US.S_ITS ---
PROCEDURE: US ABDOMEN COMPLETE INDICATIONS: Right upper quadrant pain TECHNIQUE: Real-time scanning was performed of the abdominal and retroperitoneal organs, with image documentation. COMPARISON: None. FINDINGS: Liver: Liver is normal in size and homogeneous in echotexture. Gallbladder: Removed. Biliary ducts: Intrahepatic bile ducts are non-dilated. Extrahepatic bile duct caliber measures 6 mm. Normal is 6-7 mm or less in diameter, or 10 mm or less post-cholecystectomy. Pancreas: Visualized portions of the pancreas are sonographically normal. Spleen: Spleen is normal in size and homogeneous in echotexture. Kidneys: Kidneys are normal in size and echotexture. Right kidney measures 9.7 cm long; left kidney measures 9.2 cm long. No hydronephrosis or nephrolithiasis. No solid masses. Aorta: Visualized aorta is normal in caliber at less than 3 cm. Iliacs: Proximal common iliac arteries are normal in caliber at less than 2.5 cm. IVC: Intrahepatic inferior vena cava is patent. Miscellaneous: No free abdominal fluid. IMPRESSION: Cholecystectomy, without biliary dilatation. No imaging explanation is found for this patient's presenting symptoms. Normal appearing liver by ultrasound. Dictated by: Stanley Figueroa M.D. on 03/28/2023 at 13:55 Approved by: Stanley Figueroa M.D. on 03/28/2023 at 13:56
== END ==
PROVIDERS: PCP Family Medicine; Referring Provider Family Medicine; Visit Provider Family Medicine
DX: R10.11 Right upper quadrant pain (principal); Z90.49 Acquired absence of other specified parts of digestive tract
CPT/HCPCS: 76700

== ENCOUNTER → 2023-05-21 13:25 | Outpatient (CLI) | payer OTHER, SELFPAY ==
[2022-09-07 11:04] VITALS: BMI 25.0
--- NOTE | 2023-05-21 | DI.RAD.S_ITS ---
PROCEDURE: XR HAND RT MIN 3V INDICATIONS: HAND PAIN TECHNIQUE: 3 views of the hand(s) acquired. COMPARISON: None. FINDINGS: Bones: No fractures or dislocations. Carpal bones are normally aligned. No suspicious bony lesions. Minimal 1st CMC joint space narrowing with osteophytic lipping. Soft tissues: No suspicious soft tissue calcifications. 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 Dictated by: Jayesh De La Rosa M.D. on 05/21/2023 at 14:48 Approved by: Jayesh De La Rosa M.D. on 05/21/2023 at 14:50
--- NOTE | 2023-05-21 | DI.RAD.S_ITS ---
PROCEDURE: XR HAND LT MIN 3V INDICATIONS: HAND PAIN TECHNIQUE: 3 views of the hand(s) acquired. COMPARISON: None. FINDINGS: Bones: No fractures or dislocations. Carpal bones are normally aligned. No suspicious bony lesions. Interphalangeal joint space narrowing with osteophytosis. 1st CMC joint space narrowing with associated osteophytosis and sclerosis. Soft tissues: No suspicious soft tissue calcifications. 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 Dictated by: Jayesh De La Rosa M.D. on 05/21/2023 at 14:48 Approved by: Jayesh De La Rosa M.D. on 05/21/2023 at 14:48
== END ==
LOC: RAD 13:26
PROVIDERS: PCP Family Medicine; Referring Provider Family Medicine; Visit Provider Family Medicine
DX: M18.12 Unilateral primary osteoarthritis of first carpometacarpal joint, left hand (principal); M19.042 Primary osteoarthritis, left hand; M79.644 Pain in right finger(s); M79.645 Pain in left finger(s)
CPT/HCPCS: 73130

== ENCOUNTER → 2023-06-28 08:12 | Outpatient (CLI) | payer OTHER, SELFPAY ==
[2022-09-07 11:04] VITALS: BMI 25.0
--- NOTE | 2023-06-28 08:13 | DI.MG.S_ITS ---
BILATERAL DIGITAL SCREENING MAMMOGRAM 3D/2D WITH CAD: 06/28/2023 CLINICAL: Routine screening. Family history of breast cancer. Comparison is made to exams dated: 11/28/2021 mammogram, 03/19/2020 mammogram, and 12/11/2017 mammogram - [facility]. There are scattered areas of fibroglandular density in both breasts (category b / 25%-50% glandular tissue). Current study was also evaluated with a Computer Aided Detection (CAD) system. No significant masses, calcifications, or other findings are seen in either breast. There has been no significant interval change. IMPRESSION: NEGATIVE There is no mammographic evidence of malignancy. A 1 year screening mammogram is recommended. Based on the Tyrer Cuzick model (a risk assessment model) the patient's lifetime risk is 16.0% and her 10 year risk is 4.0%. According to the ACR, ACS, and NCCN guidelines, an annual breast MRI exam along with mammogram is recommended if the patient's lifetime risk is 20% or greater. This exam was interpreted at Station ID: [id number]. NOTE: For mammograms, a report in lay terms will be sent to the patient. Approximately 15% of breast malignancies will not be visualized mammographically. In the management of a palpable breast mass, a negative mammogram must not discourage biopsy of a clinically suspicious lesion. Electronically Signed By: Hernando hendricks/mathieu:06/28/2023 13:12:49 copy to: Oralia Torrez letter sent: Normal Exam ACR BI-RADS Category 1: Negative 3341F
== END ==
LOC: MAMMO 08:12
PROVIDERS: PCP Family Medicine; Referring Provider Family Medicine; Visit Provider Family Medicine
DX: Z12.31 Encounter for screening mammogram for malignant neoplasm of breast (principal); Z80.3 Family history of malignant neoplasm of breast; R92.323 Mammographic fibroglandular density, bilateral breasts
CPT/HCPCS: 77063; 77067

== ENCOUNTER → 2023-08-03 10:45 | Outpatient (CLI) | payer OTHER, SELFPAY ==
[2022-09-07 11:04] VITALS: BMI 25.0
--- NOTE | 2023-08-03 | DI.RAD.S_ITS ---
PROCEDURE: XR KNEE RT 3V INDICATIONS: RIGHT KNEE PAIN TECHNIQUE: 3 views of the knee were acquired. COMPARISON: None. FINDINGS: Bones: No fractures or dislocations. No suspicious bony lesions. Soft tissues: No joint effusion. No suspicious soft tissue calcifications. IMPRESSION: No acute bony abnormality or significant effusion. Dictated by: Orville Figueredo M.D. on 08/03/2023 at 21:17 Approved by: Orville Figueredo M.D. on 08/03/2023 at 21:17
== END ==
LOC: RAD 10:46
PROVIDERS: PCP Family Medicine; Referring Provider Family Medicine; Visit Provider Family Medicine
DX: M25.561 Pain in right knee (principal); M25.361 Other instability, right knee
CPT/HCPCS: 73562

== ENCOUNTER → 2023-08-15 07:10 | Outpatient (CLI) | payer OTHER, SELFPAY ==
[2022-09-07 11:04] VITALS: BMI 25.0
--- NOTE | 2023-08-15 07:12 | DI.MRI.S_ITS ---
PROCEDURE: MR KNEE RT WO CON INDICATIONS: Right lateral knee pain for 3 weeks. No known injury. TECHNIQUE: Noncontrast sagittal PD fast spin echo and T2 fast spin echo with fat saturation, sagittal 3-D FLASH with fat saturation; coronal T1 spin echo and PD fast spin echo with fat saturation, and axial PD fast spin echo with fat saturation through the knee. COMPARISON: [facility], CR, XR KNEE RT 3V, 08/03/2023, 10:49. FINDINGS: Image quality: Excellent. Menisci: There is horizontal tear involving the posterior horn of the medial meniscus. The lateral meniscus demonstrates normal morphology and internal signal. The meniscal root ligaments appear intact. Cruciate ligaments: The anterior and posterior cruciate ligaments appear intact. Medial structures: The medial collateral ligament appears intact. The semimembranosus tendon insertions and meniscocapsular junction appear intact. Visualized portions of the pes anserinus tendons appear normal. No abnormal bursal fluid. Lateral structures: The lateral collateral ligament, long and short heads of the biceps femoris tendon appear intact. The popliteus tendon appears normal; the popliteofibular ligament appears intact. The posterosuperior and anteroinferior popliteomeniscal fascicles appear intact. The arcuate and fabellofibular ligaments appear intact, on either side of the lateral inferior geniculate artery. Iliotibial band appears normal. Anterior structures: The quadriceps and patellar tendons appear intact. Patellar alignment is normal. No femoral trochlear dysplasia or ventral trochlear prominence. No edema in the infrapatellar fat pad. Bones and cartilage: There is a nonaggressive appearing intramedullary lesion in the proximal metaphysis (junction of the fibular head and neck), demonstrating both cystic and solid component. No bone marrow contusions or fractures. Mild tricompartmental cartilage fibrillation with relatively preserved cartilage thickness. Joint space: There is small knee joint effusion. No Cervantes's cyst. There is a small synovial cyst at the proximal tibial fibular joint, containing several small osteochondral bodies. Normal appearing synovial plicae are incidentally noted. IMPRESSION: 1. Horizontal tear of the posterior horn of the medial meniscus. 2. A nonaggressive appearing intramedullary lesion in the proximal fibula demonstrating both cystic and solid component. On the comparison x-ray, there is a mixed lucent and sclerotic lesion. Recommend correlation with focal pain and tenderness. Consider contrast-enhanced MRI if clinically indicated. 3. A small synovial cyst at the proximal tibial fibular joint containing osteochondral bodies. 4. Early osteoarthritic changes with cartilage degeneration. 5. Small knee joint effusion. Dictated by: Merrill Schultz M.D. on 08/15/2023 at 9:41 Approved by: Merrill Schultz M.D. on 08/15/2023 at 9:52
== END ==
PROVIDERS: PCP Family Medicine; Referring Provider Family Medicine; Visit Provider Family Medicine
DX: S83.241A Other tear of medial meniscus, current injury, right knee, initial encounter (principal); M89.9 Disorder of bone, unspecified; M71.21 Synovial cyst of popliteal space [Baker], right knee; M25.561 Pain in right knee; M25.461 Effusion, right knee; G89.29 Other chronic pain
CPT/HCPCS: 73721

== ENCOUNTER → 2023-12-05 12:13 | Outpatient (CLI) | payer OTHER, SELFPAY ==
[2022-09-07 11:04] VITALS: BMI 25.0
--- NOTE | 2023-12-05 12:16 | DI.RAD.S_ITS ---
PROCEDURE: XR CHEST 2V INDICATIONS: COUGH TECHNIQUE: 2 views of the chest were acquired. COMPARISON: None. FINDINGS: Two-view chest x-ray November 22, 2016. Surgical changes and devices: Median sternotomy wires. Lungs and pleura: 7.1 centimeter pleural based mass posterior aspect of the left lung base. No pleural effusions or pneumothorax. Mediastinum: Mediastinal contours are normal. Heart size is normal. Bones and chest wall: No suspicious bony abnormalities. Soft tissues appear unremarkable. IMPRESSION: 7.1 centimeter left lower lobe mass. Recommend CT scan of the chest with contrast. Dictated by: Raquel Adams MD, PhD on 12/05/2023 at 12:37 Approved by: Raquel Adams MD, PhD on 12/05/2023 at 12:38
[2023-12-05 15:15] LABS: BUN Creatinine Ratio 15.7 (6-22); Blood Urea Nitrogen 11 mg/dL (7-17); Calcium 8.2 mg/dL (8.4-10.2); Carbon Dioxide 24 mmol/L (22-32); Chloride 101 mmol/L (98-107); Estimated Glomerular Filt Rate > 60 mL/min (>60); Glucose 111 mg/dL (70-100); HEMOLYSIS 24 (0-50); Potassium 4.2 mmol/L (3.4-5.1); Sodium 133 mmol/L (137-145)
== END ==
PROVIDERS: PCP Family Medicine; Referring Provider Registered Nurse; Visit Provider Registered Nurse
DX: Z01.812 Encounter for preprocedural laboratory examination (principal); R05.8 Other specified cough; R91.8 Other nonspecific abnormal finding of lung field
CPT/HCPCS: 71046; 80048

== ENCOUNTER → 2023-12-05 15:10 | Outpatient (CLI) | payer OTHER, SELFPAY ==
[2022-09-07 11:04] VITALS: BMI 25.0
--- NOTE | 2023-12-05 15:12 | DI.CT.S_ITS ---
PROCEDURE: CT CHEST W CON INDICATIONS: MASS OF LOWER LOBE OF LEFT LUNG TECHNIQUE: After the administration of intravenous contrast, 5 mm thick sections acquired from the pulmonary apices to the posterior costophrenic angles. 1 mm axial lung, 5 mm thick coronal and sagittal reformats and 7 mm axial MIP were acquired. For radiation dose reduction, the following was used: automated exposure control, adjustment of mA and/or kV according to patient size. COMPARISON: [facility], CR, XR CHEST 2V, 12/05/2023, 12:18. FINDINGS: Image quality: Diagnostic. Lower Neck: No enlarged lymph nodes. Thyroid: No thyroid nodules which require sonographic follow up, per consensus guidelines. Axillae: No enlarged lymph nodes. Chest Wall: Unremarkable. Bones: Unremarkable. Lungs and Pleura: Trace left pleural effusion. Left lower lobe lesion with central hypoattenuation. This measures approximately 7.7 x 4.6 cm, and is associated with the pleura, without invasion into the intercostal space. Heart: Heart size is normal. No pericardial effusion. Thoracic Vessels: The aorta and pulmonary arteries demonstrate normal size. Mediastinum and Riya: No enlarged lymph nodes. Cystic region within the anterior mediastinum measuring 3 x 4.7 cm (series 2, image 38). Esophagus: No wall thickening. No hiatal hernia. Upper Abdomen: Hypoattenuating region in at the liver dome measuring 1.7 cm (series 2, image 57). IMPRESSION: Left lower lobe mass with central hypoattenuation. Differential includes malignancy with central necrosis versus necrotic pneumonia. Correlate with leukocytosis. Trace left pleural effusion, could be parapneumonic or malignant. Lesion at the liver dome measuring 1.7 cm. Finding could represent metastatic disease or a primary liver lesion such as hemangioma. 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 Dictated by: Jayesh De La Rosa M.D. on 12/05/2023 at 16:03 Approved by: Jayesh De La Rosa M.D. on 12/05/2023 at 16:09
== END ==
PROVIDERS: PCP Family Medicine; Referring Provider Registered Nurse; Visit Provider Registered Nurse
DX: J98.59 Other diseases of mediastinum, not elsewhere classified (principal); Z01.812 Encounter for preprocedural laboratory examination; R91.8 Other nonspecific abnormal finding of lung field; R05.8 Other specified cough; K76.9 Liver disease, unspecified
CPT/HCPCS: 71046; 71260; 80048; Q9967

== ENCOUNTER → 2023-12-09 11:38 | Outpatient (ROUT) | payer OTHER, SELFPAY ==
[2022-09-07 11:04] VITALS: BMI 25.0
[2023-12-09 12:03] LABS: Add Manual Diff / Slide Review NO; Basophils Absolute Auto 100 /uL (0-100); Basophils Percent Auto 0.2 % (0-2); Eosinophils Absolute Auto 100 /uL (0-450); Eosinophils Percent Auto 0.6 % (2-4); Hematocrit 37.7 % (36-46); Hemoglobin 12.3 g/dL (12.0-16.0); Lymphocytes Absolute Auto 900 /uL (1100-4500); Lymphocytes Percent Auto 3.5 % (25-40); Mean Corpuscular HGB Conc 32.5 % (30-36); Mean Corpuscular Hemoglobin 29.6 PG (26-34); Mean Corpuscular Volume 90.9 fL (80-100); Monocytes Absolute Auto 1400 /uL (0-900); Monocytes Percent Auto 5.4 % (3-14); Neutrophils Absolute Auto 22800 /uL (1500-7000); Neutrophils Percent Auto 90.3 % (50-75); Platelet Count 754 X10^3/uL (150-400); Red Blood Cell Count 4.15 X10^6/uL (4.0-5.2); Red Cell Distribution Width 13.5 % (11.6-14.8); White Blood Cell Count 25.3 X10^3/uL (4.5-11.0)
[2023-12-09 12:04] LABS: Alanine Aminotransferase 29 IU/L (<35); Albumin 2.6 g/dL (3.5-5.0); Albumin Globulin Ratio 1.1 (1.0-2.8); Alkaline Phosphatase 196 U/L (38-126); Aspartate Aminotransferase 27 IU/L (14-36); BUN Creatinine Ratio 8.5 (6-22); Bilirubin Total 0.4 mg/dL (0.2-1.3); Blood Urea Nitrogen 6 mg/dL (7-17); Calcium 8.3 mg/dL (8.4-10.2); Carbon Dioxide 25 mmol/L (22-32); Chloride 98 mmol/L (98-107); Estimated Glomerular Filt Rate > 60 mL/min (>60); Globulin 2.4 g/dL (1.7-4.1); Glucose 100 mg/dL (70-100); HEMOLYSIS < 15 (0-50); Potassium 4.1 mmol/L (3.4-5.1); Sodium 132 mmol/L (137-145)
[2023-12-09 13:24] LABS: RBC Morphology Normal Morphology
[2023-12-09 13:25] LABS: Rouleaux 1+
== END ==
PROVIDERS: PCP Family Medicine; Visit Provider Family Medicine
DX: D72.829 Elevated white blood cell count, unspecified (principal); R91.8 Other nonspecific abnormal finding of lung field
CPT/HCPCS: 80053; 85025

== ENCOUNTER 2023-12-09 13:05 | Inpatient (IN) | payer OTHER, SELFPAY ==
[2022-09-07 11:04] VITALS: BMI 25.0
[2023-12-09 13:10] VITALS: BMI 26.5
[2023-12-09 14:15] VITALS: BP 103/60; PULSE 95; RESP 16; TEMP 36.9; O2SAT 95
--- NOTE | 2023-12-09 15:10 | PC.NURSE ---
Patient is alert and oriented x4, she has an intermittent cough that is non productive at this time. Patient being admitted for a L.lower lung abcess. Lung sounds are cta, and she is 95% on RA. Independent in room and at bedside.
[2023-12-09] MEDS: PIPERACILLIN/TAZO 4.5 GM in SODIUM CHLORIDE 0.9% 100 ML IV (15:26)
[2023-12-09] MEDS: ENOXAPARIN 40 MG/0.4 ML SYRINGE SUBCUT (15:26)
[2023-12-09] MEDS: SODIUM CHLORIDE 0.9% 1,000 ML 125 ML IV (15:27)
[2023-12-09] MEDS: VANCOMYCIN 1,500 MG/300 ML PIGGYBACK 200 MG IV (17:24)
--- NOTE | 2023-12-09 17:51 | PM.HP.1 ---
History of Present Illness History of Present Illness Date Patient Seen: 12/09/23 Time Patient Seen: 17:51 Date of Onset of Symptoms: 11/27/23 Chief complaint: lung abscess Narrative: Patient is a 53-year-old well known to me with history of seizure disorder and depression who presents with persistent cough. Patient was treated with Zithromax about a week and a half ago did not seem to get better. He is having night sweats and low-grade fevers. Cough was not responding to easy treatment and chest x-rays obtained. Left lower lobe mass which CT scan was then obtained. Appears to be mostly necrotic pneumonia although the question of whether this is some mass at a higher level is unknown. But there was no adenopathy in the mediastinum. I have reviewed with the radiologist. And they feel like this is more likely infection secondary to white count and this. Despite adding Levaquin and Bactrim patient continues to get worse and not improving. Her white count came down maybe slightly after 3 days of outpatient treatment. And at this point she is being admitted for failure of outpatient therapy. Patient has consistent cough. There was no other changes. Otherwise patient has had no other change. She has had no headaches visual changes numbness tingling weight loss abdominal discomfort change in her bowel movements blood in her stool urinary changes [facility] Medical History Anxiety (~1994) Chicken pox (~1976) Depression (~1998) Irregular menstrual cycle Seizure disorder (~2009) Surgical History Anesthesia H/O congenital atrial septal defect (ASD) repair (~1992) History of section Hx of cholecystectomy (~1997) Family History Father Alcoholic hepatitis Mother Breast cancer Brother Hyperlipidemia Hypertension Sister Hypertension Grandfather Cancer Grandmother Cancer Hypertension Grandfather Dementia Grandmother No problems noted. Social History marital status: household members: spouse Smoking Status: Never smoker alcohol intake: current Meds Home Medications and Allergies Home Medications Medication Instructions Recorded Confirmed Type alprazolam 1 mg tablet 0.5 mg PO DAILY PRN Insomnia 03/17/20 12/09/23 History lamotrigine 200 mg tablet 150 mg PO DAILY 03/17/20 12/09/23 History citalopram 20 mg tablet 40 mg PO BEDTIME 07/30/20 12/09/23 History melatonin 3 mg tablet 3 mg PO BEDTIME 09/07/22 12/09/23 History benzonatate 200 mg capsule 200 mg PO Q6H PRN Pain (Scale 12/09/23 12/09/23 History Score 7-10) estradiol 0.1 mg/24 hr semiweekly 1 patch transdermal 2XW 12/09/23 12/09/23 History transdermal patch (Antoinette) lamotrigine 100 mg tablet 300 mg PO BEDTIME 12/09/23 12/09/23 History tirzepatide 7.5 mg/0.5 mL 7.5 mg SUBCUT WEEKLY 12/09/23 12/09/23 History subcutaneous pen injector (Nikolay) Allergies Allergy/AdvReac Type Severity Reaction Status Date / Time Penicillins AdvReac Mild Gastrointestinal Verified 12/09/23 15:12 Upset cefotaxime AdvReac Unknown LIVER Verified 09/07/22 08:55 PROBLEM, JUANDICE Cephalosporins AdvReac Unknown Verified 12/09/23 15:12 Review of Systems Review of Systems Narrative: see above Exam Vital Signs (past 8 hours): - 12/09/23 14:15 Temperature 98.5 F Pulse Rate 95 H Respiratory Rate 16 Blood Pressure 103/60 Pulse Oximetry 95 Oxygen Flow Rate 0 Oxygen Flow Rate 0 Narrative Exam Narrative: alert fatigued female no acute respiratory distress Tympanic membranes are normal conjunctiva clear posterior pharynx unremarkable neck supple without adenopathy lungs maybe some basilar rhonchi abdomen is soft positive bowel sounds nontender extremities without significant issue neurologic exam is nonfocal Assessment & Plan Assessment & Plan narrative: left lower lobe pneumonia with abscess. Need to cover for staph. Discussed with pharmacist. Will go with broad-spectrum coverage will obtain blood cultures sputum cultures vanco and piperacillin. No other changes. Discussed briefly with surgeon. May need to consider surgical drainage will hope to talk to the CT surgeon to review. Does not appear to be cancer but still in the diagnosis. Will need to follow out. Failed outpatient medication hoping her white count will come down and she will do well. Will see how things go. Cough with codeine and will follow from there. Dehydration. Mild. Will treat with IV hydration and follow. History of seizure disorder. Continue usual Lamictal. History of depression. Will continue therapy. DVT prophylaxis on Lovenox Full code. Disposition I anticipate at least 2-3 days depending on what surgeon says. Hopefully she will respond to treatment Patient understands. Questions answered. Time-Based Coding :: [TOTAL MINUTES] spent with patient and on the chart (including review of chart, obtaining history, exam, reviewing outside data, placing orders, documenting exam and treatment plan, and counseling patient) on [DATE]. Quality VTE Deep Vein Thrombosis/Pulmonary Embolism Present on Admission: No
[2023-12-09] MEDS: CODEINE/GUAIFENESIN LIQUID 5ML UDC 10 ML PO (18:32)
[2023-12-09 19:00] VITALS: BP 107/57; PULSE 98; RESP 20; TEMP 37.2; O2SAT 93
[2023-12-09] MEDS: BENZONATATE 100 MG CAPSULE 200 MG PO (19:57)
[2023-12-09] MEDS: ACETAMINOPHEN 325 MG TABLET 650 MG PO (20:22)
[2023-12-09] MEDS: lamoTRIgine 100 MG TABLET 300 MG PO (20:22)
[2023-12-09] MEDS: PIPERACILLIN/TAZO 3.375 GM in SODIUM CHLORIDE 0.9% 100 ML IV (20:23)
[2023-12-09] MEDS: clonazePAM 0.5 MG TABLET 1 MG PO (20:23)
[2023-12-09 21:00] VITALS: O2SAT 93
[2023-12-10] MEDS: GUAIFENESIN/DM 200/20 MG/10 ML UDC PO ×3 (02:17→20:19)
[2023-12-10] MEDS: ACETAMINOPHEN 325 MG TABLET 650 MG PO ×2 (02:19→16:40)
[2023-12-10] MEDS: PIPERACILLIN/TAZO 3.375 GM in SODIUM CHLORIDE 0.9% 100 ML IV ×3 (02:31→21:00)
[2023-12-10] MEDS: OXYCODONE IR 5 MG TABLET PO ×4 (04:31→20:19)
[2023-12-10] MEDS: BENZONATATE 100 MG CAPSULE 200 MG PO ×2 (04:32→12:08)
[2023-12-10] MEDS: SODIUM CHLORIDE 0.9% 1,000 ML 125 ML IV (04:33)
[2023-12-10 07:05] LABS: Add Manual Diff / Slide Review NO; Basophils Absolute Auto 100 /uL (0-100); Basophils Percent Auto 0.3 % (0-2); Eosinophils Absolute Auto 300 /uL (0-450); Eosinophils Percent Auto 1.6 % (2-4); Hematocrit 32.2 % (36-46); Hemoglobin 10.9 g/dL (12.0-16.0); Lymphocytes Absolute Auto 900 /uL (1100-4500); Lymphocytes Percent Auto 4.2 % (25-40); Mean Corpuscular HGB Conc 33.8 % (30-36); Mean Corpuscular Hemoglobin 30.1 PG (26-34); Mean Corpuscular Volume 89.2 fL (80-100); Monocytes Absolute Auto 1300 /uL (0-900); Monocytes Percent Auto 6.2 % (3-14); Neutrophils Absolute Auto 18500 /uL (1500-7000); Neutrophils Percent Auto 87.7 % (50-75); Platelet Count 695 X10^3/uL (150-400); Red Blood Cell Count 3.61 X10^6/uL (4.0-5.2); Red Cell Distribution Width 13.1 % (11.6-14.8); White Blood Cell Count 21.1 X10^3/uL (4.5-11.0)
[2023-12-10 07:18] LABS: Alanine Aminotransferase 25 IU/L (<35); Albumin 2.5 g/dL (3.5-5.0); Alkaline Phosphatase 153 U/L (38-126); Aspartate Aminotransferase 31 IU/L (14-36); BUN Creatinine Ratio 8.7 (6-22); Bilirubin Total 0.4 mg/dL (0.2-1.3); Blood Urea Nitrogen 6 mg/dL (7-17); Calcium 7.5 mg/dL (8.4-10.2); Carbon Dioxide 23 mmol/L (22-32); Chloride 107 mmol/L (98-107); Estimated Glomerular Filt Rate > 60 mL/min (>60); Globulin 2.5 g/dL (1.7-4.1); Glucose 98 mg/dL (70-100); HEMOLYSIS < 15 (0-50); Potassium 3.5 mmol/L (3.4-5.1); Sodium 136 mmol/L (137-145)
[2023-12-10] MEDS: VANCOMYCIN 1,000 MG/200 ML PIGGYBACK 200 MG IV ×2 (07:26→19:09)
[2023-12-10 08:00] VITALS: BP 109/59; PULSE 88; RESP 18; TEMP 36.7; O2SAT 94
--- NOTE | 2023-12-10 08:40 | PM.PN.1 ---
Subjective Subjective Date Patient Seen: 12/10/23 Time Patient Seen: 08:40 Interval history: Patient seen in follow-up of lung abscess. Slept pretty well last night. Cough still present but maybe slightly better. Hard to tell. Still coughing whenever she moves. No other significant change or complaint Exam Vital Signs (past 8 hours): Oxygen Delivery Method Room Air Oxygen Flow Rate 0 Narrative Exam Narrative: Alert female in no acute distress less fatigued. HEENT exam is unremarkable mucous membranes moist neck supple without adenopathy lungs mild diffuse rhonchi worse in the left base. Some crackles heart is regular rate and rhythm Objective Labs 12/10/23 06:40 12/10/23 06:40 Labs: Laboratory Results - last 24 hr 12/10/23 06:40 WBC 21.1 H RBC 3.61 L Hgb 10.9 L Hct 32.2 L MCV 89.2 MCH 30.1 MCHC 33.8 RDW 13.1 Plt Count 695 H Neut % (Auto) 87.7 H Lymph % (Auto) 4.2 L [place] % (Auto) 6.2 Eos % (Auto) 1.6 L Baso % (Auto) 0.3 Neut # (Auto) 07570 H Lymph # (Auto) 900 L [place] # (Auto) 1300 H Eos # (Auto) 300 Baso # (Auto) 100 Sodium 136 L Potassium 3.5 Chloride 107 Carbon Dioxide 23 BUN 6 L Creatinine 0.69 Estimated GFR > 60 BUN/Creatinine Ratio 8.7 Glucose 98 Calcium 7.5 L Total Bilirubin 0.4 AST 31 ALT 25 Alkaline Phosphatase 153 H Total Protein 5.0 L Albumin 2.5 L Globulin 2.5 Albumin/Globulin Ratio 1.0 [facility] Medical History Anxiety (~1994) Chicken pox (~1976) Depression (~1998) Irregular menstrual cycle Seizure disorder (~2009) Surgical History Anesthesia H/O congenital atrial septal defect (ASD) repair (~1992) History of section Hx of cholecystectomy (~1997) Family History Father Alcoholic hepatitis Mother Breast cancer Brother Hyperlipidemia Hypertension Sister Hypertension Grandfather Cancer Grandmother Cancer Hypertension Grandfather Dementia Grandmother No problems noted. Social History marital status: household members: spouse Smoking Status: Never smoker alcohol intake: current Assessment & Plan Assessment & Plan narrative: Lung abscess. White count is down. On Zosyn and vanco. Maybe feeling slightly better. Question is whether or not this is going to need to be drained. Which would require a VATS procedure. Going to discuss with today. Sputum actually looks pretty good hopefully will get some culture out of that. Will continue IV antibiotics until we know what we are doing with will be hard decision on what oral antibiotic will be next. But we seem to be trending in the right direction. Will continue IV therapy rechecked after that. Dehydration. Probably can discontinue IV hydration today. But will follow. History of seizure disorder continue usual Lamictal History of depression stable. DVT prophylaxis on Lovenox Full code. Hoping in the next day or 2 we can discontinue IV antibiotics will have a sputum growing which we can adjust antibiotics orally 2. Patient understands questions answered will discuss thoracic surgeon consult Time-Based Coding :: [TOTAL MINUTES] spent with patient and on the chart (including review of chart, obtaining history, exam, reviewing outside data, placing orders, documenting exam and treatment plan, and counseling patient) on [DATE]. Quality VTE Deep Vein Thrombosis/Pulmonary Embolism Present on Admission: No
[2023-12-10] MEDS: lamoTRIgine 100 MG TABLET 150 MG PO (09:07)
[2023-12-10] MEDS: POTASSIUM CHLORIDE 20 MEQ TAB 40 MEQ PO (11:48)
--- NOTE | 2023-12-10 11:58 | CM.DANOTE ---
Brief DCP Assessment note Pt is a 53yo direct admit from Dr. Lozoya's office here with pneumonia and lung abscess. PCP Darell Payer [employer] and self pay QUALITY SYSTEM MANAGER reviewed EMR. Per chart review, likely another day or two of IV abx. hopeful to adjust to PO abx. Per RN report, may need to drain lunch. Per provider PN, will consult thoracic surgeon consult. Per RN report, pt indep at baseline, likely no CM needs. Per chart review, pt lives at home with spouse Sagar in [place]. P: home with spouse when medically stable. Likely another few days. CM team will follow as needed SILVA Joyce Discharge Planning/Care Management CM Discharge Assessment Start: 12/10/23 11:54 Freq: Status: Active Protocol: Document 12/10/23 11:54 (Rec: 12/10/23 11:58 [id number]) Discharge Planning Assessment Assigned Gis Analyst Developer SILVA Beckman DPOA/Assigned Designee Name Sagar spouse Contact Information [phone] Advance Directives? No History Provided By Patient,Medical Record Prior Living Arrangements House Household Members spouse Type of transporation used prior to Drives own vehicle admit Independent with ADL's Yes Is patient alert and oriented? Yes Discharge Plan Home Transportation Arrangement Spouse Referrals Initiated None needed Review Status In Process Please Provide Date Initial DC 12/10/23 Assessment Was Performed Next Review Type Continued Stay Review
[2023-12-10] MEDS: CODEINE/GUAIFENESIN LIQUID 5ML UDC 10 ML PO (16:40)
[2023-12-10 19:00] VITALS: BP 107/64; PULSE 88; RESP 20; TEMP 37.2; O2SAT 94
[2023-12-10] MEDS: CITALOPRAM 10 MG TABLET 40 MG PO (20:46)
[2023-12-10] MEDS: lamoTRIgine 100 MG TABLET 300 MG PO (20:46)
[2023-12-10] MEDS: clonazePAM 0.5 MG TABLET 1 MG PO (20:46)
[2023-12-10] MEDS: SODIUM CHLORIDE 0.9% 250 ML 21 ML IV (20:56)
[2023-12-10] MEDS: MAGNESIUM HYDROXIDE 30 ML UDC PO (21:22)
--- NOTE | 2023-12-10 23:50 | PC.NURSE ---
Addendum entered by Sondra Cox R.N. 12/11/23 03:00: oxygen level only 90% so placed on oxygen at 2L/min with sat now at 95%. Medicated earlier with Tessalon but still having issues with intermittent coughing so medicated with Guaifenesin DM. Original Note: Patient is alert and oriented. Breath sounds diminished in left lobes and reports SOB with exertion. She has an intermittent cough exacerbated when she tries to take a deep breath or when she moves. RA sat was 94%. She reports her cough is sometimes productive of drew sputum but none observed at time of assessment. HRR. Did complain of nausea but declined offer of antiemetic. BT present and is passing flatus but has not had a BM since 12/04; medicated with MOM and provided with prune juice. Voiding with denial of any dysuria, frequency or urgency. Has been independent with bed mobility and getting up to bathroom. Did complain of rib pain and was medicated with oxycodone by NEVA Dietz and at time of assessment reported improvement. Agreeable initially to having bilateral SCD's put on but then had coughing episode so declined at that time. Fall risk score moderate. Patient verbalizes agreement to call for staff assist if feeling weak, dizzy or lightheaded when getting out of bed.
[2023-12-11] MEDS: BENZONATATE 100 MG CAPSULE 200 MG PO ×2 (01:08→08:37)
[2023-12-11] MEDS: OXYCODONE IR 5 MG TABLET PO ×4 (01:11→19:01)
[2023-12-11] MEDS: GUAIFENESIN/DM 200/20 MG/10 ML UDC PO ×2 (02:59→15:40)
[2023-12-11] MEDS: PIPERACILLIN/TAZO 3.375 GM in SODIUM CHLORIDE 0.9% 100 ML IV ×2 (04:23→14:21)
[2023-12-11] MEDS: SODIUM CHLORIDE 0.9% FLUSH 10 ML IV ×2 (04:24→08:39)
[2023-12-11 05:54] LABS: Add Manual Diff / Slide Review NO; Basophils Absolute Auto 100 /uL (0-100); Basophils Percent Auto 0.2 % (0-2); Eosinophils Absolute Auto 300 /uL (0-450); Eosinophils Percent Auto 1.4 % (2-4); Hematocrit 35.1 % (36-46); Hemoglobin 11.6 g/dL (12.0-16.0); Lymphocytes Absolute Auto 1200 /uL (1100-4500); Lymphocytes Percent Auto 4.8 % (25-40); Mean Corpuscular HGB Conc 33.1 % (30-36); Mean Corpuscular Hemoglobin 29.7 PG (26-34); Mean Corpuscular Volume 89.6 fL (80-100); Monocytes Absolute Auto 1700 /uL (0-900); Monocytes Percent Auto 7.1 % (3-14); Neutrophils Absolute Auto 20900 /uL (1500-7000); Neutrophils Percent Auto 86.5 % (50-75); Platelet Count 673 X10^3/uL (150-400); Red Blood Cell Count 3.91 X10^6/uL (4.0-5.2); Red Cell Distribution Width 13.5 % (11.6-14.8); White Blood Cell Count 24.1 X10^3/uL (4.5-11.0)
[2023-12-11 06:10] LABS: Alanine Aminotransferase 54 IU/L (<35); Albumin 2.6 g/dL (3.5-5.0); Alkaline Phosphatase 192 U/L (38-126); Aspartate Aminotransferase 68 IU/L (14-36); BUN Creatinine Ratio 7.5 (6-22); Bilirubin Total 0.4 mg/dL (0.2-1.3); Blood Urea Nitrogen 5 mg/dL (7-17); Calcium 7.7 mg/dL (8.4-10.2); Carbon Dioxide 26 mmol/L (22-32); Chloride 105 mmol/L (98-107); Estimated Glomerular Filt Rate > 60 mL/min (>60); Globulin 2.6 g/dL (1.7-4.1); Glucose 109 mg/dL (70-100); HEMOLYSIS < 15 (0-50); Potassium 4.4 mmol/L (3.4-5.1); Sodium 135 mmol/L (137-145); Total Protein 5.2 g/dL (6.3-8.2)
[2023-12-11 06:16] LABS: Vancomycin Trough 7.4 ug/mL (10-20)
[2023-12-11 07:47] LABS: Vancomycin Trough 6.5 ug/mL (10-20)
[2023-12-11 08:00] VITALS: BP 110/63; PULSE 89; RESP 17; O2SAT 95
[2023-12-11] MEDS: lamoTRIgine 100 MG TABLET 150 MG PO (08:37)
[2023-12-11] MEDS: ENOXAPARIN 40 MG/0.4 ML SYRINGE SUBCUT (08:39)
--- NOTE | 2023-12-11 08:44 | P.PN_ITS ---
Subjective Subjective Date Patient Seen: 12/11/23 Time Patient Seen: 08:44 Interval history: Patient seen in follow-up of lung abscess. Had a tough knife. Was coughing all night. Did drop her sats a little bit. No other change or complaint. Exam Vital Signs (past 8 hours): Oxygen Delivery Method Room Air Oxygen Flow Rate 0 Narrative Exam Narrative: Alert female mildly fatigued no acute distress HEENT exam mucous membranes moist lungs some rales into the mid lung burgos on the left. Right is normal. Heart regular rate and rhythm without murmurs clicks rubs or gallops Abdomen is soft positive bowel sounds nontender Objective Labs 12/11/23 05:44 12/11/23 05:44 Labs: Laboratory Results - last 24 hr 12/11/23 12/11/23 05:44 07:10 WBC 24.1 H RBC 3.91 L Hgb 11.6 L Hct 35.1 L MCV 89.6 MCH 29.7 MCHC 33.1 RDW 13.5 Plt Count 673 H Neut % (Auto) 86.5 H Lymph % (Auto) 4.8 L [place] % (Auto) 7.1 Eos % (Auto) 1.4 L Baso % (Auto) 0.2 Neut # (Auto) 07591 H Lymph # (Auto) 1200 [place] # (Auto) 1700 H Eos # (Auto) 300 Baso # (Auto) 100 Sodium 135 L Potassium 4.4 Chloride 105 Carbon Dioxide 26 BUN 5 L Creatinine 0.67 Estimated GFR > 60 BUN/Creatinine Ratio 7.5 Glucose 109 H Calcium 7.7 L Total Bilirubin 0.4 AST 68 H ALT 54 H Alkaline Phosphatase 192 H Total Protein 5.2 L Albumin 2.6 L Globulin 2.6 Albumin/Globulin Ratio 1.0 Vancomycin Trough 7.4 L 6.5 L PFSH Medical History Anxiety (~1994) Chicken pox (~1976) Depression (~1998) Irregular menstrual cycle Seizure disorder (~2009) Surgical History Anesthesia H/O congenital atrial septal defect (ASD) repair (~1992) History of section Hx of cholecystectomy (~1997) Family History Father Alcoholic hepatitis Mother Breast cancer Brother Hyperlipidemia Hypertension Sister Hypertension Grandfather Cancer Grandmother Cancer Hypertension Grandfather Dementia Grandmother No problems noted. Social History marital status: household members: spouse Smoking Status: Never smoker alcohol intake: current Assessment & Plan Assessment & Plan narrative: Lung abscess. Some decrease in sats last night. Which is 1st time that is happened. Exam about the same does have a little rhonchi maybe a little more extension. White count is up this point will repeat CT scan questions whether or not she is going to need this drained to get adequate antibiotic and penetration. The question also is what antibiotics are appropriate she should have good coverage and good penetration her sputum is going to look like it is going to grow just respiratory shannan. Blood cultures are negative. And will see where things go. Continue antibiotics follow-up CT scan discussed with CT surgeon depending on what happens. At this point we have a appointment for bronchoscopy next week and will just have to see how things go. May not be able to wait that long may need to drain before. Will see what CT scan shows. Discussed with the patient. Hepatitis. Mild. Has been present. Probably secondary to infection. Doubt significant otherwise but will follow. Recheck a.m.. No abdominal complaints. Dehydration. Essentially resolved. Will continue to follow. Euvolemic. History of seizure disorder. Continue Lamictal. History of depression. Stable. DVT prophylaxis on Lovenox. Code status full. Disposition. Unclear at this point need to see what CT scan shows certainly going to need more long-term IV antibiotics. Whether we can do this as outpatient I am not sure. But will see what decisions over the next 24 hours are made. Time-Based Coding :: [TOTAL MINUTES] spent with patient and on the chart (including review of chart, obtaining history, exam, reviewing outside data, placing orders, documenting exam and treatment plan, and counseling patient) on [DATE]. Quality VTE Deep Vein Thrombosis/Pulmonary Embolism Present on Admission: No
[2023-12-11 09:00] VITALS: O2SAT 95
--- NOTE | 2023-12-11 09:40 | DI.CT.S_ITS ---
PROCEDURE: CT CHEST WO CON INDICATIONS: increase wbc left lung abcess TECHNIQUE: Noncontrast 5 mm thick sections acquired from the pulmonary apices to the posterior costophrenic angles. 1 mm lung window, 5 mm thick coronal and sagittal and 7 mm axial MIP reformats were then acquired. For radiation dose reduction, the following was used: automated exposure control, adjustment of mA and/or kV according to patient size. COMPARISON: [facility], CT, CT CHEST W CON, 12/05/2023, 15:41. FINDINGS: Image quality: Diagnostic. Lower Neck: No enlarged lymph nodes. Thyroid: No thyroid nodules which require sonographic follow up, per consensus guidelines. Axillae: No enlarged lymph nodes. Chest Wall: Unremarkable. Bones: Unremarkable. Lungs and Pleura: Encapsulated pleural based fluid collection noted on the left has significantly increased in size associated with left lower lobe consolidation. Largest fluid collection measures 14.4 by 5.1 by 13.2 cm right lung and pleural space is otherwise clear. Heart: Heart size is normal. No pericardial effusion. Thoracic Vessels: The aorta and pulmonary arteries demonstrate normal size. Mediastinum and Riya: No enlarged lymph nodes. Esophagus: No wall thickening. No hiatal hernia. Upper Abdomen: Visualized upper abdomen solid organs and bowel loops appear normal. IMPRESSION: Significant increase in encapsulated pleural based left-sided fluid collections. Differential includes loculated pleural effusions, empyema and pulmonary abscess. Consider follow-up CT chest with contrast for further assessment. Approved by: Ghassan Currie M.D. on 12/11/2023 at 13:39
[2023-12-11] MEDS: CODEINE/GUAIFENESIN LIQUID 5ML UDC 10 ML PO ×2 (11:58→19:02)
[2023-12-11] MEDS: VANCOMYCIN 1,000 MG/200 ML PIGGYBACK 200 MG IV (12:33)
[2023-12-11 14:55] LABS: Vancomycin Peak 24.1 ug/mL (20-40)
--- NOTE | 2023-12-11 18:27 | P.DS_ITS ---
History of Present Illness History of Present Illness Date Patient Seen: 12/11/23 Time Patient Seen: 18:27 Chief complaint: lung abscess Narrative: Patient is a 53-year-old well known to me with history of seizure disorder and depression who presents with persistent cough. Patient was treated with Zithromax about a week and a half ago did not seem to get better. He is having night sweats and low-grade fevers. Cough was not responding to easy treatment and chest x-rays obtained. Left lower lobe mass which CT scan was then obtained. Appears to be mostly necrotic pneumonia although the question of whether this is some mass at a higher level is unknown. But there was no adenopathy in the mediastinum. I have reviewed with the radiologist. And they feel like this is more likely infection secondary to white count and this. Despite adding Levaquin and Bactrim patient continues to get worse and not improving. Her white count came down maybe slightly after 3 days of outpatient treatment. And at this point she is being admitted for failure of outpatient therapy. Patient has consistent cough. There was no other changes. Otherwise patient has had no other change. She has had no headaches visual changes numbness tingling weight loss abdominal discomfort change in her bowel movements blood in her stool urinary changes Discharge Providers Provider Date of admission: 12/09/23 13:05 Discharge Date: 12/11/23 Primary care physician: Rainer Lozoya MD Discharge provider: Rainer Lozoya MD Summary Hospital Course Discharge Diagnosis: Left lung abscess/empyema Hepatitis Dehydration History of seizure disorder Hospital Course: Patient was admitted to the hospital please see today's progress note. Placed on Zosyn and vanco. Cultures both blood and sputum were obtained neither 1 grew anything at this date. Patient had had a slight improvement in her white count on day 1 and then it recurred increasing back to what it was at admission. CT scan was repeated. Found to have a large empyema. Discussed with our surgeon here who feels it needs to have a VATS procedure. And highly recommended transfer to area with dye stand loader and CT surgeon. Samir discussed with Dr. Starks hospitalist, Dr. Mireles dye stand loader and CT surgeon. All recommend and agree with transfer. Feel that IR probably will be used 1st. Patient has not had any issue with oxygenation status had a slight decrease to 92 % last night and was on O2 for a short period of time. Otherwise it has a constant issue with left sided posterior chest pain and cough which is on remitting. Has been doing well with guaifenesin with codeine, oxycodone and Robitussin. No other significant changes or problem. Patient had mild increase in her liver function tests which was felt to be secondary to infection. Her dehydration was completely resolved and she was stable on her seizure medicine. Exam Vital Signs (past 8 hours): Oxygen Delivery Method Room Air Oxygen Flow Rate 0 Narrative Exam Narrative: Alert tearful female coughing in no acute distress No change in lung exam with rhonchi and some wheeze left side right is normal abdomen-benign extremities normal Objective Labs 12/11/23 05:44 12/11/23 05:44 Labs: Laboratory Results - last 24 hr 12/11/23 12/11/23 12/11/23 05:44 07:10 14:22 WBC 24.1 H RBC 3.91 L Hgb 11.6 L Hct 35.1 L MCV 89.6 MCH 29.7 MCHC 33.1 RDW 13.5 Plt Count 673 H Neut % (Auto) 86.5 H Lymph % (Auto) 4.8 L [place] % (Auto) 7.1 Eos % (Auto) 1.4 L Baso % (Auto) 0.2 Neut # (Auto) 57847 H Lymph # (Auto) 1200 [place] # (Auto) 1700 H Eos # (Auto) 300 Baso # (Auto) 100 Sodium 135 L Potassium 4.4 Chloride 105 Carbon Dioxide 26 BUN 5 L Creatinine 0.67 Estimated GFR > 60 BUN/Creatinine Ratio 7.5 Glucose 109 H Calcium 7.7 L Total Bilirubin 0.4 AST 68 H ALT 54 H Alkaline Phosphatase 192 H Total Protein 5.2 L Albumin 2.6 L Globulin 2.6 Albumin/Globulin Ratio 1.0 Vancomycin Peak 24.1 Vancomycin Trough 7.4 L 6.5 L PFSH Medical History Anxiety (~1994) Chicken pox (~1976) Depression (~1998) Irregular menstrual cycle Seizure disorder (~2009) Surgical History Anesthesia H/O congenital atrial septal defect (ASD) repair (~1992) History of section Hx of cholecystectomy (~1997) Family History Father Alcoholic hepatitis Mother Breast cancer Brother Hyperlipidemia Hypertension Sister Hypertension Grandfather Cancer Grandmother Cancer Hypertension Grandfather Dementia Grandmother No problems noted. Social History marital status: household members: spouse Smoking Status: Never smoker alcohol intake: current Discharge Assessment & Plan Assessment and Plan Assessment: Transferred to higher level of care Dr. Starks hospitalist Plan of Treatment: Hopefully will have drained her empyema Discharge Plan Discharge Plan Patient Disposition: [facility] Other facility: [facility] Under care of provider: Dr. Starks Discharge orders & Medications Prescriptions: No Action lamotrigine 200 mg tablet 150 mg PO DAILY Rx Instructions: also takes 300mg HS citalopram 20 mg tablet 40 mg PO BEDTIME melatonin 3 mg Tablet 3 mg PO BEDTIME benzonatate 200 mg capsule 200 mg PO Q6H PRN (Reason: Pain (Scale Score 7-10)) estradiol [Antoinette] 0.1 mg/24 hr patch semiweekly 1 patch transdermal 2XW lamotrigine 100 mg tablet 300 mg PO BEDTIME Mounjaro 7.5 mg/0.5 mL pen injector 7.5 mg SUBCUT WEEKLY Patient Comments: [NO ORIGINAL SIG] meloxicam 7.5 mg tablet 7.5 mg PO DAILY PRN (Reason: Muscle Spasm) Follow up/Referrals: Rainer Lozoya MD [Primary Care Provider] - Discharge Health Status Multidrug resistant organism: No MDRO Precautions: [place] Diet/Activity/Treatments Diet: Diet as Tolerated Liquid consistency: Normal/Thin Food texture: Regular Discharge Data Primary Care Provider: Rainer Lozoya Quality VTE Deep Vein Thrombosis/Pulmonary Embolism Present on Admission: No
--- NOTE | 2023-12-11 19:16 | PC.NURSE ---
Pt is packed up and ready for discharge to [facility] via Ambulance. Report called to Bobbi HOOKS at [facility] and all questions answered. Ambulance crew here to transfer and report given. Pain meds (codeine cough syrup and oxycodone given at 1904. Pt out via stretcher by Ambulance personnel with partial belongings. The rest of the belongings sent with spouse-purse, santillan etc.
== END 2023-12-11 19:21 | disposition short-term general hospital (02) | DRG 179 ==
PROVIDERS: Admitting Provider Family Medicine; PCP Family Medicine; Referring Provider Family Medicine; Visit Provider Family Medicine
DX: J86.9 Pyothorax without fistula (principal); E86.0 Dehydration; G40.909 Epilepsy, unspecified, not intractable, without status epilepticus; F32.A Depression, unspecified; K75.9 Inflammatory liver disease, unspecified
CPT/HCPCS: 36415; 71250; 80053; 80202; 85025; 87040; 87070; 87205; J1650; J2543

== ENCOUNTER → 2023-12-23 10:34 | Outpatient (ROUT) | payer OTHER, SELFPAY ==
[2023-12-09 13:10] VITALS: BMI 26.5
[2023-12-23 10:53] LABS: Basophils Absolute Auto 100 /uL (0-100); Basophils Percent Auto 0.9 % (0-2); Eosinophils Absolute Auto 500 /uL (0-450); Eosinophils Percent Auto 3.9 % (2-4); Hemoglobin 9.6 g/dL (12.0-16.0); Lymphocytes Absolute Auto 1200 /uL (1100-4500); Lymphocytes Percent Auto 10.1 % (25-40); Mean Corpuscular HGB Conc 33.1 % (30-36); Mean Corpuscular Hemoglobin 29.9 PG (26-34); Mean Corpuscular Volume 90.4 fL (80-100); Monocytes Absolute Auto 1100 /uL (0-900); Monocytes Percent Auto 9.3 % (3-14); Neutrophils Absolute Auto 8800 /uL (1500-7000); Neutrophils Percent Auto 75.8 % (50-75); Platelet Count 876 X10^3/uL (150-400); Red Blood Cell Count 3.21 X10^6/uL (4.0-5.2); Red Cell Distribution Width 14.2 % (11.6-14.8); White Blood Cell Count 11.6 X10^3/uL (4.5-11.0)
[2023-12-23 11:09] LABS: Add Manual Diff / Slide Review SLIDE REVIEW
[2023-12-23 11:13] LABS: Platelet Estimate Incr; RBC Morphology Normal Morphology
== END ==
PROVIDERS: PCP Family Medicine; Visit Provider Family Medicine
DX: R91.8 Other nonspecific abnormal finding of lung field (principal)
CPT/HCPCS: 85025

== ENCOUNTER → 2023-12-23 10:47 | Outpatient (CLI) | payer OTHER, SELFPAY ==
[2023-12-09 13:10] VITALS: BMI 26.5
--- NOTE | 2023-12-23 10:48 | DI.RAD.S_ITS ---
PROCEDURE: XR CHEST 2V INDICATIONS: Other nonspecific abnormal finding of lung field TECHNIQUE: 2 views of the chest were acquired. COMPARISON: [facility], CT, CT CHEST WO CON, 12/11/2023, 10:49. [facility], CR, XR CHEST 2V, 12/05/2023, 12:18. FINDINGS: Surgical changes and devices: Median sternotomy change. Left-sided PICC line in place. There is a displaced fracture in the posterior left 5th rib arc. Lungs and pleura: Partially aerated opacity involving the left lower lung and blunting left hemidiaphragm. There is lobular thickening of the lateral left pleural surface. No visible pneumothorax. The right lung is clear aside from possible trace right pleural effusion. Mediastinum: Mediastinal contours are normal. Heart size is normal. Bones and chest wall: No suspicious bony abnormalities. Soft tissues appear unremarkable. IMPRESSION: Partially aerated opacity in the left lower lung may be due to recent debridement. Laterally layering left pleural effusion has increased in size. Probable iatrogenic 5th posterior rib fracture. Dictated by: Vanessa Fine M.D. on 12/23/2023 at 16:24 Approved by: Vanessa Fine M.D. on 12/23/2023 at 16:29
== END ==
PROVIDERS: PCP Family Medicine; Referring Provider Family Medicine; Visit Provider Family Medicine
DX: J90 Pleural effusion, not elsewhere classified (principal); R91.8 Other nonspecific abnormal finding of lung field
CPT/HCPCS: 71046; 85025

== ENCOUNTER → 2024-01-08 16:13 | Outpatient (CLI) | payer OTHER, SELFPAY ==
[2023-12-09 13:10] VITALS: BMI 26.5
--- NOTE | 2024-01-08 16:16 | DI.RAD.S_ITS ---
PROCEDURE: XR CHEST 2V INDICATIONS: Pleurodynia TECHNIQUE: 2 views of the chest were acquired. COMPARISON: [facility], CT, CT CHEST W CON, 12/05/2023, 15:41. [facility], CT, CT CHEST WO CON, 12/11/2023, 10:49. [facility], CR, XR CHEST 2V, 12/23/2023, 10:57. FINDINGS: Surgical changes and devices: Sternotomy wires. Left-sided PICC with the catheter tip at the cavoatrial junction. Lungs and pleura: Opacity at the left lung base. No pneumothorax. Moderate-sized left pleural effusion, similar. Mediastinum: Mediastinal contours are normal. Heart size is normal. Bones and chest wall: No suspicious bony abnormalities. Left 5th rib thoracotomy or fracture is unchanged. Soft tissues appear unremarkable. IMPRESSION: Similar moderate-sized left pleural effusion. Obscured left lung base opacity. Dictated by: Ricardo Roy M.D. on 01/09/2024 at 8:11 Approved by: Ricardo Roy M.D. on 01/09/2024 at 8:16
== END ==
LOC: RAD 16:15
PROVIDERS: PCP Family Medicine; Referring Provider Family Medicine; Visit Provider Family Medicine
DX: J86.9 Pyothorax without fistula (principal); J90 Pleural effusion, not elsewhere classified; R07.81 Pleurodynia; Z95.828 Presence of other vascular implants and grafts
CPT/HCPCS: 71046

== ENCOUNTER → 2024-01-15 14:03 | Outpatient (ROUT) | payer OTHER, SELFPAY ==
[2024-01-15 14:11] LABS: Add Manual Diff / Slide Review NO; Basophils Absolute Auto 100 /uL (0-100); Basophils Percent Auto 1.3 % (0-2); Eosinophils Absolute Auto 400 /uL (0-450); Eosinophils Percent Auto 5.1 % (2-4); Hematocrit 37.5 % (36-46); Lymphocytes Absolute Auto 1400 /uL (1100-4500); Mean Corpuscular HGB Conc 32.1 % (30-36); Mean Corpuscular Hemoglobin 28.1 PG (26-34); Mean Corpuscular Volume 87.5 fL (80-100); Monocytes Absolute Auto 700 /uL (0-900); Monocytes Percent Auto 9.7 % (3-14); Neutrophils Absolute Auto 4800 /uL (1500-7000); Neutrophils Percent Auto 64.9 % (50-75); Platelet Count 400 X10^3/uL (150-400); Red Blood Cell Count 4.28 X10^6/uL (4.0-5.2); Red Cell Distribution Width 14.9 % (11.6-14.8); White Blood Cell Count 7.4 X10^3/uL (4.5-11.0)
[2024-01-15 14:27] LABS: Erythrocyte Sedimentation Rate 7 MM/HR (0-20)
[2024-01-15 14:29] LABS: BUN Creatinine Ratio 23.9 (6-22); Blood Urea Nitrogen 21 mg/dL (7-17); C-Reactive Protein Quant < 0.5 mg/dL (<1.0); Calcium 9.3 mg/dL (8.4-10.2); Carbon Dioxide 27 mmol/L (22-32); Chloride 102 mmol/L (98-107); Estimated Glomerular Filt Rate > 60 mL/min (>60); Glucose 114 mg/dL (70-100); HEMOLYSIS < 15 (0-50); Potassium 4.6 mmol/L (3.4-5.1); Sodium 136 mmol/L (137-145)
== END ==
PROVIDERS: PCP Family Medicine; Visit Provider Internal Medicine Infectious Disease
DX: J86.9 Pyothorax without fistula (principal)
CPT/HCPCS: 80048; 85025; 85651; 86140

== ENCOUNTER → 2024-01-29 09:00 | Outpatient (CLI) | payer OTHER, SELFPAY ==
--- NOTE | 2024-01-29 09:03 | DI.RAD.S_ITS ---
PROCEDURE: XR CHEST 2V INDICATIONS: RIB PAIN TECHNIQUE: 2 views of the chest were acquired. COMPARISON: [facility], CR, XR CHEST 2V, 01/08/2024, 16:14. FINDINGS: Surgical changes and devices: Median sternotomy wires are seen. Lungs and pleura: Scarring/atelectasis at left lung base is seen. No definite focal infiltrate. No pleural effusions or pneumothorax. Mediastinum: Mediastinal contours are normal. Heart size is normal. Bones and chest wall: No suspicious bony abnormalities. Soft tissues appear unremarkable. IMPRESSION: Again noted is scarring/atelectasis at left lung base. No definite focal infiltrate. No pleural effusion or pneumothorax. Dictated by: Jose Cuello M.D. on 01/29/2024 at 13:18 Approved by: Jose Cuello M.D. on 01/29/2024 at 13:18
== END ==
PROVIDERS: PCP Family Medicine; Referring Provider Family Medicine; Visit Provider Family Medicine
DX: R07.81 Pleurodynia (principal)
CPT/HCPCS: 71046

== ENCOUNTER → 2024-04-22 13:42 | Outpatient (CLI) | payer OTHER, SELFPAY ==
--- NOTE | 2024-04-22 13:42 | DI.ECHO.S_ITS ---
[place] +---------+ [facility] : : [address] : : [place] : : [id number] : : Phone: [phone] Echocardiogram Report + + :Name: SAKSHI CORREA Study Date: 04/22/2024 Height: 62 in : :[facility] ReadingLocation: Weight: 145 lb : : Gender: Female BSA: 1.7 m2 : :: 1970 Age: 53 yrs BP: 111/81 mmHg: :Reason For Study: MITRAL INSUFFICIENCY : :Ordering Physician: EVA, : :BAIRON Performed By: Lyly Melendez : :Referring: BAIRON ZAPATA : + + Interpretation Summary 1) Normal left ventricular thickness, size, wall motion, and systolic function (EF 60-65%). 2) Normal right ventricular size with low normal function. 3) There is mild to moderate mitral regurgitation. 4) Compared to the Echo done 09/07/2022, mitral regurgitation has improved from moderate to mild-moderate on this study. Procedure: A two-dimensional transthoracic echocardiogram with color flow and Doppler was performed. The study quality was technically adequate. Comparison is made with the echocardiogram of 09/07/2022. The patient was in sinus rhythm with heart rates between 70-85 bpm during the exam. Left Ventricle: The left ventricle is normal in size. There is normal left ventricular wall thickness. The ejection fraction is estimated to be 60-65%. Left ventricular systolic function appears normal without focal wall motion abnormalities. Diastolic function could not be accurately assessed due to unobtainable data. Right Ventricle: The right ventricle is normal size. Right ventricular systolic function is at the lower limits of normal. Atria: The left atrial size is normal. Right atrial size is normal. There is no Doppler evidence for an interatrial shunt. Patient states history of IAS repair >30 years ago. Mitral Valve: The mitral valve is normal in structure and function. There is mild to moderate mitral regurgitation. The mitral regurgitant jet is eccentrically directed. Aortic Valve: The aortic valve is trileaflet. The aortic valve opens well. The peak aortic velocity is 2.0 m/sec. The aortic valve mean gradient is 9.7 mmHg. The calculated aortic valve area is 2.2 cm2. There is no aortic valve stenosis. There is mild aortic regurgitation. Tricuspid Valve: The tricuspid valve is normal in structure and function. There is mild tricuspid regurgitation. The right ventricular systolic pressure is estimated to be at least 22 mmHg based on an estimated right atrial pressure of 3 mm Hg. Pulmonic Valve: The pulmonic valve leaflets are thin and pliable; valve motion is normal. There is mild pulmonic regurgitation. Great Vessels: The aortic root is borderline dilated. The dimensions of the ascending aorta are normal. The IVC is of normal diameter and collapses greater than 50% with a sniff. This suggests a low right atrial pressure of 3 mm Hg. Pericardium/ Pleura There is no pericardial effusion. There is no pleural effusion. MMode/2D Measurements & Calculations LVIDd: 4.5 cm LVOT diam: 1.9 cm LVIDs: 3.0 cm Ao root diam: 3.4 cm FS: 32.4 % asc Aorta Diam: 3.3 cm IVSd: 0.76 cm LVPWd: 0.77 cm LV cano. diameter/BSA (cm/m^2): 2.7 LV sys. diameter/BSA (cm/m^2): 1.8 LA A2 area: 18.4 cm2 RA long axis: 4.6 cm LA A4 area: 18.0 cm2 RA area: 15.6 cm2 LA length (vol): 5.3 cm RA vol: 44.6 ml LA vol: 53.0 ml RA : 26.7 ml/m2 LA vol index: 31.8 ml/m2 IVC diam: 1.2 cm RVD1 (basal): 3.1 cm RVD2 (mid): 2.1 cm TAPSE: 1.5 cm Doppler Measurements & Calculations Ao V2 max: 200.4 cm/sec LVOT Max Jax: 155.5 cm/sec Ao V2 mean: 149.1 cm/sec LV V1 max P.7 mmHg Ao max P.1 mmHg LV V1 VTI: 30.6 cm Ao mean P.7 mmHg CYNTHIA(I,D): 2.2 cm2 Ao V2 VTI: 40.2 cm CYNTHIA(V,D): 2.3 cm2 sev ratio: 0.76 CYNTHIA indexed to BSA (cm^2/m^2): 1.3 MV E max jax: 78.5 cm/sec TR max jax: 217.5 cm/sec MV A max jax: 116.3 cm/sec TR max P.9 mmHg MV E/A: 0.67 PA V2 max: 96.7 cm/sec Med Peak E' Jax: 6.0 cm/sec PA V2 mean: 66.6 cm/sec E/E' med: 13.1 PA mean P.0 mmHg Lat Peak E' Jax: 9.1 cm/sec PA pr(Accel): 39.6 mmHg E/E' lat: 8.7 E/e' average: 10.9 MV dec time: 0.23 sec MVA(VTI): 2.6 cm2 MR ERO: 0.16 cm2 MV V2 mean: 81.1 cm/sec MR PISA: 2.9 cm2 MV mean P.9 mmHg MR flow rate: 94.4 cm3/sec MV V2 VTI: 34.6 cm MR PISA radius: 0.68 cm SV(LVOT): 89.2 ml Reading Physician:[id number] PM
== END ==
PROVIDERS: PCP Family Medicine; Referring Provider Internal Medicine Cardiovascular Disease; Visit Provider Internal Medicine Cardiovascular Disease
DX: I08.3 Combined rheumatic disorders of mitral, aortic and tricuspid valves (principal)
CPT/HCPCS: 93306

== ENCOUNTER → 2024-07-28 06:45 | Outpatient (CLI) | payer OTHER, SELFPAY ==
--- NOTE | 2024-07-28 06:46 | DI.CT.S_ITS ---
PROCEDURE: CT SOFT TISSUE NECK W CON INDICATIONS: NECK MASS TECHNIQUE: After the administration of intravenous contrast, 3.0 mm axial sections acquired from the sella to the aortic arch. Additional oblique axial 3.0 mm sections acquired through the pharynx. 3 mm thick coronal and sagittal reformats were generated. For radiation dose reduction, the following was used: automated exposure control. COMPARISON: None. FINDINGS: Image quality: Excellent. Lymph nodes: No enlarged lymph nodes seen throughout the neck. Vessels: Visualized vasculature appears patent. Neck spaces: The oropharynx, nasopharynx, and pharynx demonstrate no mucosal lesions. The vocal cords, false vocal cords, pyriform sinuses, epiglottis, vallecula, and tongue base all appear normal. Extramucosal spaces appear unremarkable. Glands: The parotid and submandibular glands appear normal. Thyroid gland is unremarkable. Miscellaneous: Visualized brain and orbits appear normal. Lung apices appear clear. Superficial soft tissues appear normal. Bones: No suspicious bony lesions. Visualized sinuses and mastoids appear unremarkable. IMPRESSION: No abnormality at the site of palpable concern. Dictated by: Barbara Mai M.D. on 07/28/2024 at 10:29 Approved by: Barbara Mai M.D. on 07/28/2024 at 10:30
== END ==
PROVIDERS: PCP Family Medicine; Referring Provider Family Medicine; Visit Provider Family Medicine
DX: R22.1 Localized swelling, mass and lump, neck (principal)
CPT/HCPCS: 70491; Q9967

== ENCOUNTER → 2024-11-10 17:40 | Outpatient (CLI) | payer OTHER, SELFPAY ==
--- NOTE | 2024-11-10 17:48 | DI.RAD.S_ITS ---
PROCEDURE: XR HIP W PEL IF DONE LT 2V INDICATIONS: LEFT HIP PAIN TECHNIQUE: AP view of the hip were acquired. COMPARISON: None. FINDINGS: Bones: There are no osseous abnormalities. SI and hip joints: Normal in width and alignment without arthritic change. Mild L4-5 and L5-S1 degenerative disc and facet disease noted Soft tissues: IUD overlies the central pelvis IMPRESSION: L4-5 and L5-S1 degenerative disc and facet disease. Normal pelvis Dictated by: Rashaun Shah M.D. on 11/12/2024 at 12:34 Approved by: Rashaun Shah M.D. on 11/12/2024 at 12:35
== END ==
PROVIDERS: PCP Family Medicine; Referring Provider Family Medicine; Visit Provider Family Medicine
DX: M25.552 Pain in left hip (principal); M51.369 Other intervertebral disc degeneration, lumbar region without mention of lumbar back pain or lower extremity pain; M51.379 Other intervertebral disc degeneration, lumbosacral region without mention of lumbar back pain or lower extremity pain; M47.816 Spondylosis without myelopathy or radiculopathy, lumbar region; M47.817 Spondylosis without myelopathy or radiculopathy, lumbosacral region
CPT/HCPCS: 73502

== ENCOUNTER → 2025-03-22 08:12 | Outpatient (CLI) | payer OTHER, SELFPAY ==
--- NOTE | 2025-03-22 08:13 | DI.MG.S_ITS ---
MM screening mammo BI: 03/22/2025. BI-RADS: 1 CLINICAL: 54-year old female for bilateral screening mammogram. Tyrer-Cuzick lifetime risk of 15.8%. Current reported family history of breast cancer: mother. PRIOR EXAMS: 06/28/2023, 11/28/2021, 03/19/2020, 12/11/2017, 11/16/2016. MAMMOGRAPHY TECHNIQUE: 2D and 3D (tomosynthesis) digital mammographic views obtained, with additional images as needed for full coverage. Current study was also evaluated with a Computer Aided Detection (CAD) system. DENSITY B. There are scattered areas of fibroglandular density. MAMMOGRAPHY FINDINGS Bilateral: No suspicious mass, asymmetry, microcalcification, or other abnormality seen. IMPRESSION: * No evidence of malignancy. RECOMMENDATIONS Bilateral * Annual screening mammography. OVERALL ASSESSMENT CATEGORY BI-RADS-1: Negative. The [employer] recommends annual screening mammography beginning at age 40 for women with average risk of breast cancer. ELECTRONICALLY SIGNED: Marisela Smith M.D. on 03/22/2025 at 03:01:29 PM PT Interpreting Station ID: [id number]
== END ==
LOC: MAMMO 08:13
PROVIDERS: PCP Family Medicine; Referring Provider Family Medicine; Visit Provider Family Medicine
DX: Z12.31 Encounter for screening mammogram for malignant neoplasm of breast (principal); Z80.3 Family history of malignant neoplasm of breast
CPT/HCPCS: 77063; 77067

== ENCOUNTER → 2025-05-11 12:16 | Outpatient (CLI) | payer OTHER, SELFPAY ==
--- NOTE | 2025-05-11 12:17 | DI.MRI.S_ITS ---
PROCEDURE: MR KNEE RT WO/W CON INDICATIONS: eval previously known mass TECHNIQUE: Noncontrast sagittal PD fast spin echo and T2 fast spin echo with fat saturation, sagittal 3-D FLASH with fat saturation; coronal T1 spin echo and PD fast spin echo with fat saturation, and axial T1 spin echo and PD fast spin echo with fat saturation through the knee. Post-contrast axial, coronal, and sagittal T1 spin echo with fat saturation through the knee. COMPARISON: [facility], CR, ORTHO-XR KNEE WB RIGHT, 04/20/2025, 16:04. FINDINGS: Image quality: Excellent. Menisci: No tear of the medial meniscus. Intrasubstance degeneration at the posterior horn and meniscus body junction. mild extrusion of the medial meniscus body. The lateral meniscus is unremarkable. Cruciate ligaments: The anterior and posterior cruciate ligaments appear intact. Medial structures: The medial collateral ligament appears intact. The posterior oblique ligament, semimembranosus tendon insertions, and oblique popliteal liagment, and meniscocapsular junction appear intact. Visualized portions of the pes anserinus tendons appear normal. No abnormal bursal fluid. Lateral structures: The lateral collateral ligament, long and short heads of the biceps femoris tendon appear intact. The popliteus tendon appears normal; the popliteofibular ligament appears intact. The posterosuperior and anteroinferior popliteomeniscal fascicles appear intact. The arcuate and fabellofibular ligaments appear intact, around the lateral inferior geniculate artery. Iliotibial band appears normal. Anterior structures: The quadriceps and patellar tendons appear intact. Patellar alignment is normal. No femoral trochlear dysplasia or ventral trochlear prominence. No edema in the infrapatellar fat pad. Bones and cartilage: Mild chondrosis of the medial compartment. The cartilage of the lateral compartment is well maintained. Mild chondrosis of the patellofemoral compartment with mild subchondral marrow edema in the central trochlea. No acute fracture. There is a 1.2 cm T2 heterogeneous, fat containing lesion in the proximal fibular neck, nonspecific but favors benign etiology. Previously seen sclerotic lesion in the tibial proximal diaphysis is not definitely visualized on this exam, likely secondary to signal loss in the inferior edge of view. Joint space: Small knee effusion. Trace popliteal cyst with small loose body. Low-grade interstitial tear of the medial head of the gastrocnemius, at the femoral insertion. Popliteal vasculature is unremarkable. Mild subcutaneous edema of the anterior knee. Multiple small loose body about the distal semimembranosus tendon (08:15). Small ganglion cyst posterior to the proximal tibiofibular articulation, with multiple small loose bodies. IMPRESSION: 1. 1.2 T2 heterogeneous lesion in the proximal fibular neck, nonspecific but favors benign etiology. Previously seen sclerotic lesion in the tibial proximal diaphysis is not definitely visualized on this exam, likely secondary to signal loss in the inferior edge of view. Further evaluation with MR tibia/fibula with intravenous contrast can be considered if clinically indicated. 2. Mild chondrosis of the medial and patellofemoral compartment. 3. Multiple small loose bodies. Dictated by: Marie Vann M.D. on 05/11/2025 at 14:56 Approved by: Marie Vann M.D. on 05/11/2025 at 15:10
== END ==
LOC: MRI 12:16
PROVIDERS: PCP Family Medicine; Referring Provider Orthopaedic Surgery; Visit Provider Orthopaedic Surgery
DX: M22.41 Chondromalacia patellae, right knee (principal); M23.41 Loose body in knee, right knee; M67.461 Ganglion, right knee; M89.9 Disorder of bone, unspecified; M25.561 Pain in right knee
CPT/HCPCS: 73723; A9579